=== PATIENT | male | born 1950 | race Caucasian/White ===

== ENCOUNTER → 2016-05-27 | Outpatient (CLI) | payer MEDICARE ==
[~2016-05-27] MED LIST: ACETAMINOPHEN500 M1 PO; ALLOPURINOL100 MG PO; AMARYL2 MG PO; ANAPROX DS550 MG PO; AUGMENTIN 500500 M1 PO; BACTRIM DS 8001 TA1 PO; BUMETANIDE1 MG PO; BUMETANIDE2 MG PO; CALTRATE 600+D1 EACH PO; CALTRATE 600+D1 TAB PO; CALTRATE PLUS1 TAB PO; COL-RITE100 M1 PO; COLACE100 MG PO; COREG25 MG PO; COUMADIN10 M1 PO; COUMADIN3 M1 PO; Cleocin150 MG PO; Coumadin5 MG PO; DIGITEK0.125 MG PO; DIGITEK0.25 MG PO; DIGOXIN0.25 MG PO; EC NAPROSYN500 MG PO; FEROSUL325 M1 PO; FINASTERIDE5 MG PO; FISH OIL 1,2001 EACH PO; GEMFIBROZIL600 MG PO; GENTAMICIN SULF15 GM TP; KEFLEX500 MG PO; LASIX40 MG PO; LISINOPRIL20 MG PO; NIZORAL2% T; SUPER EPA 1201200 MG PO; VANCOCIN1000 MG/25 IV; VITAMIN D32000 UNIT PO; WARFARIN SODIUM4 MG PO
--- NOTE | ~2016-05-27 | PR ---
[place], [place] PROGRESS NOTE NAME: FELIBERTO MCGREGOR JR [facility] #: [id number] UNIT #: [id number] ROOM: DOCTOR: BANDAR CamISA BIRTHDATE: [birth year] DOS: 05/27/2016 CHIEF COMPLAINT: Followup of left leg ulceration. HISTORY OF PRESENT ILLNESS: The location is the left lower leg medial aspect above the malleolus. The quality is venous. Severity is moderate. Duration is 21 weeks at least. 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 He is tolerating his Unna boot. It is getting changed twice a week by home health and once a week here in the clinic. He is on Carleen at home and we have asked to use OptiLock as a secondary dressing as he does have some problems with maceration. Upon the dressing being removed today, underneath the Unna boot, there was no secondary dressing present at all and there is some maceration present around the wound, which has been noted on prior occasions. He has no specific complaints. He is tolerating compression very well. PHYSICAL EXAMINATION: His vital signs are stable. Blood pressure is 120/74, pulse of 68, respirations 18, temperature is 98.3. The wound is measuring exactly the same except slightly less deep at 4.5 x 3.2 x 0.2. The surrounding skin appears stable. There is some maceration noted as before. There is minimal fibrin slough present in the base of the wound, but overall it does look fairly healthy and clean and the periwound appears much less inflamed. A debridement was done. The tissue removed was fibrin slough and subcutaneous tissue. There was a minimal amount of bleeding that was controlled with pressure. The instrument utilized was a curette. Post-debridement measurements are unchanged. ASSESSMENT AND PLAN: Chronic venous leg ulceration slowly healing. I am concerned about the maceration. We will use OptiLock today and skin prep around it. Also, I do not know if they are using the OptiLock well they weren't actually home health has not been, so he may have to contact home health and ask them to make sure they are using a secondary dressing to help prevent maceration. In addition, I think that this patient has had advanced wound care for over 20 weeks including compression therapy and advanced wound care products with still a stagnant chronic open wound. I think that there are no signs of overt infection and I think he would be a good candidate for possible EpiFix to help stimulate closure, so we will see if his insurance will approve this, so we will start making arrangements for this. [place], [place] PROGRESS NOTE NAME: MECHE BATISTAFELIBERTO Riya [facility] #[facility] [id number] UNIT #: [id number] ROOM: DOCTOR: ISA PORTILLO M.D. BIRTHDATE: [birth year] ISA PORTILLO MD CM:PNJONH [id number] ISA PORTILLO M.D. 05/28/16 1139 interface
[2016-05-27 14:46] LABS: HEMATOCRIT 38.5 % (42.0-52.0); HEMOGLOBIN 12.4 g/dl (14.0-18.0); MEAN CELL VOLUME 82.6 fl (80.0-94.0); MEAN CORPUSCULAR HGB 26.6 pg (27.0-31.0); MEAN CORPUSCULAR HGB CONC 32.2 g/dl (33.0-37.0); MEAN PLATELET VOLUME 10.5 fl (9.6-12.3); RED BLOOD COUNT 4.66 10*6/uL (4.50-5.90); RED CELL DISTRI WIDTH 13.9 % (0-14.5); WHITE BLOOD COUNT 8.9 10*3/uL (4.8-10.8)
[2016-05-27 15:03] LABS: ALBUMIN 3.8 gm/dl (3.1-4.5); BILIRUBIN, TOTAL 0.6 mg/dl (0.2-1.0); POTASSIUM 4.1 mmol/L (3.5-5.1); TOTAL PROTEIN 7.7 gm/dL (6.4-8.2)
[2016-05-27 15:14] LABS: DIGOXIN 0.92 ng/ml (0.8-2.0)
[2016-05-27 18:55] LABS: INTERNATIONAL NORM RATIO 3.5 (2.0-3.5); PROTHROMBIN TIME 38.8 SECONDS (9.0-12.4)
== END | disposition home or self-care (01) ==
LOC: WOUNDCARE 08:21 → LAB 08:21
PROVIDERS: Internal Medicine
DX: Z12.5 Encounter for screening for malignant neoplasm of prostate (principal); E78.00 Pure hypercholesterolemia, unspecified; Z79.01 Long term (current) use of anticoagulants; Z79.899 Other long term (current) drug therapy; I87.312 Chronic venous hypertension (idiopathic) with ulcer of left lower extremity; L97.922 Non-pressure chronic ulcer of unspecified part of left lower leg with fat layer exposed

== ENCOUNTER → 2016-06-03 | Outpatient (CLI) | payer MEDICARE ==
--- NOTE | ~2016-06-03 | PR ---
[place], [place] PROGRESS NOTE NAME: FELIBERTO MCGREGOR JR [facility] #: [id number] UNIT #: [id number] ROOM: DOCTOR: BANDAR CamISA BIRTHDATE: [birth year] DOS: 06/03/2016 CHIEF COMPLAINT: Followup of left leg ulcerations. HISTORY OF PRESENT ILLNESS: The location is the left lower leg medial aspect above the malleolus. The quality is venous. The severity is moderate to severe. The duration is at least 22 weeks being in the Wound Clinic; however, has been going on for more than that. His comorbid conditions include congestive heart failure, chronic renal failure, history of DVT, on chronic Coumadin therapy, chronic leg edema and now likely diabetes, which is newly diagnosed upon blood work that I have requested last week. His sugar was noted to be over 357 with triglycerides ranging over 600 range. This is not a fasting glucose, however, and we did discuss with the patient and his caregiver that the patient needs definitely followup with his primary care for this. This is likely why this wound is really having a difficult time healing. He is not complaining of any complaints at the present time. He is tolerating the Unna boot; however, he continues to have a lot of swelling at the foot and at the distal ankle, this is quite swollen. He does have a tight band on the upper part of the Unna boot, which was noted upon removal. OBJECTIVE: VITAL SIGNS: Stable. Blood pressure is 132/80, pulse of 68, respirations 18, temperature is 98.4. WOUND EXAMINATION: The wound is measuring slightly longer at 5.5. The width is 3.1 and the depth is 0.2; however, the depth appears to be slightly deeper than that in some areas. A debridement was done today. The tissue removed was fibrin, slough and subcutaneous tissue. A curette was utilized. There is minimal bleeding. Post-debridement measurements are unchanged except I would say that the depth is 0.3 in some places. It does seem that some of the possible ligaments are starting to be more apparent than on prior occasions. He does not have any acute tenderness. He has a lot of indurated edema around the wound and some continued maceration. ASSESSMENT AND PLAN: Chronic nonhealing wound of the left lower extremity, likely secondary to undiagnosed diabetes. He is going to be following up with his primary care doctor. I hope that they will put him on a regimen right away as I think this is going to be really important how this wound will heal if it does. In addition, I would like to hold off on compression. The Unna boot has seemed to not really made a lot of improvement lately. In fact, some of the edema is very indurated and impacted right around the wound area and especially with the foot. So, I would like to hold off and have him just use his regular BENNY hose at home for a while and see if this makes any improvement. We will change the dressings from a collagen to Hydrofera, we will use an Endoform dressing on the base of the wound. The base of the wound does look thoroughly clean; however, there is no sign of infection. He is going to have home health change it 3 times a week. Followup is in 1 week. I did ask whether he had any polyuria, polydipsia, or any changes in his vision and he does not, so his sugar was markedly uncontrolled on his blood work. I hope that once we get him stabilized with this diabetes, hopefully we will see some changes in the wound appearance. I will also ask for an x-ray of this limb as this has not been [place], [place] PROGRESS NOTE NAME: FELIBERTO MCGREGOR JR [facility] #: [id number] UNIT #: [id number] ROOM: DOCTOR: ISA PORTILLO M.D. BIRTHDATE: [birth year] ordered and I am concerned with some of the depth of the wound in certain areas. ISA PORTILLO MD CM:TRACEY [id number] ISA PORTILLO M.D. 06/04/16 1027 interface
== END ==
LOC: WOUNDCARE 08:54
DX: E11.622 Type 2 diabetes mellitus with other skin ulcer (principal); L97.822 Non-pressure chronic ulcer of other part of left lower leg with fat layer exposed; I87.312 Chronic venous hypertension (idiopathic) with ulcer of left lower extremity; I50.9 Heart failure, unspecified; E11.22 Type 2 diabetes mellitus with diabetic chronic kidney disease; N18.9 Chronic kidney disease, unspecified; Z86.718 Personal history of other venous thrombosis and embolism; Z79.01 Long term (current) use of anticoagulants

== ENCOUNTER → 2016-06-09 | Outpatient (CLI) | payer MEDICARE ==
[2016-06-09 09:16] LABS: HEMATOCRIT 40.9 % (42.0-52.0); HEMOGLOBIN 13.2 g/dl (14.0-18.0); MEAN CELL VOLUME 82.6 fl (80.0-94.0); MEAN CORPUSCULAR HGB 26.7 pg (27.0-31.0); MEAN CORPUSCULAR HGB CONC 32.3 g/dl (33.0-37.0); MEAN PLATELET VOLUME 9.5 fl (9.6-12.3); RED BLOOD COUNT 4.95 10*6/uL (4.50-5.90); RED CELL DISTRI WIDTH 13.7 % (0-14.5)
[2016-06-09 09:44] LABS: ALBUMIN 3.7 gm/dl (3.1-4.5); BILIRUBIN, TOTAL 0.7 mg/dl (0.2-1.0); POTASSIUM 4.2 mmol/L (3.5-5.1); TOTAL PROTEIN 7.9 gm/dL (6.4-8.2)
[2016-06-09 10:01] LABS: HEMOGLOBIN A1c 7.7 % (4.8-5.6)
== END | disposition home or self-care (01) ==
LOC: LAB 08:47
PROVIDERS: Family Medicine
DX: E11.9 Type 2 diabetes mellitus without complications (principal); E78.00 Pure hypercholesterolemia, unspecified

== ENCOUNTER → 2016-06-10 | Outpatient (CLI) | payer MEDICARE ==
--- NOTE | ~2016-06-10 | PR ---
[place], [place] PROGRESS NOTE NAME: FELIBERTO MCGREGOR JR [facility] #: [id number] UNIT #: [id number] ROOM: DOCTOR: BANDAR CamISA BIRTHDATE: [birth year] DOS: 06/10/2016 CHIEF COMPLAINT: Followup of left leg ulcerations. HISTORY OF PRESENT ILLNESS: The location of the wound is a left lower leg medial aspect above the malleolus. The quality is venous. The severity is moderate to severe. The duration has been at least 23 weeks and being followed in the wound clinic without any resolution of the wound. Also he has had a new diagnosis of diabetes, which has just been recently diagnosed. He is not on any medications as of yet. 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 He did have a repeat blood work today or just this week, his hemoglobin A1c was 7.7 with a triglyceride range in the 500. The patient has not been put on any medications for this as of yet. He does have an intervention for venous ablation to be scheduled, I believe next week. Last week, we did try to discontinue the Unna boot to see how he did without it. It was noted his foot was markedly swollen and it did not appear that the Unna boot would have been helping much lately. So, this was discontinued. However, he was to wear a Tubigrip; however, the Tubigrip that was applied was only applied up to the ulcer point and not above that, so when he comes in today his left lower leg is fairly edematous today. He has no complaints there. He was to have home health come and change his dressing this Wednesday; however, it was not changed, so the current dressing has been on since Wednesday. OBJECTIVE: Vital Signs: Stable. Blood pressure is 142/78, pulse is 70, respirations 18, temperature is 98.2. The wound is measuring 5.4 x 3.4 x 0.4 in depth, the depth seems slightly deeper, I believe this is secondary to his edema not being very well controlled. In fact, it does look like the two ulcers of the very top of the wounds have healed and are closed at this time and the distal wound is extremely small at this point as well. The appearance of the base of the wound is fairly clean, appears healthier than it did last week; however, there is some minimal fibrin slough present on the proximal portion at the very edge of the wound. So selective debridement was done today just to remove that and dried fibrin slough that was present. Otherwise, an aggressive debridement was not done this week. There is no discomfort, purulence or evidence of cellulitis at this time. ASSESSMENT AND PLAN: Chronic venous ulcer complicated by newly diagnosed diabetes and uncontrolled edema. He has responded to Unna boot for a short period, however, it has not really made much difference lately, so instead of doing a Unna boot, we will go back to a 3-layer compression. I would continue with Endoform for now and Hydrofera Blue dressing. The patient is to follow back up with us in one week. Home health will change the 3-layer wrap on Wednesday. Followup is next week. He is to have venous ablation done. Hopefully, this will make improvements in wound healing. Also I am going to get a nutrition consult for him as well. [place], [place] PROGRESS NOTE NAME: [facility]IBERTO [facility]REGOR JR [facility] #: [id number] UNIT #: [id number] ROOM: DOCTOR: ISA PORTILLO M.D. BIRTHDATE: [birth year] ISA PORTILLO MD CM:TRACEY [id number] ISA PORTILLO M.D. 06/16/16 1027 interface
== END | disposition home or self-care (01) ==
LOC: WOUNDCARE 00:45
DX: I87.312 Chronic venous hypertension (idiopathic) with ulcer of left lower extremity (principal); E11.622 Type 2 diabetes mellitus with other skin ulcer; L97.822 Non-pressure chronic ulcer of other part of left lower leg with fat layer exposed; E11.22 Type 2 diabetes mellitus with diabetic chronic kidney disease; N18.9 Chronic kidney disease, unspecified; I50.9 Heart failure, unspecified; Z86.718 Personal history of other venous thrombosis and embolism

== ENCOUNTER → 2016-06-17 | Outpatient (CLI) | payer MEDICARE ==
--- NOTE | ~2016-06-17 | PR ---
[place], [place] PROGRESS NOTE NAME: FELIBERTO MCGREGOR JR [facility] #: [id number] UNIT #: [id number] ROOM: DOCTOR: BANDAR CamISA BIRTHDATE: [birth year] DOS: 06/17/2016 CHIEF COMPLAINT: Followup of left leg ulceration. The location of the wound is the left lower leg medial aspect above the malleolus. The quality is a venous, severity is moderate to severe, duration is at least 24 weeks, possibly more. The patient has a recent diagnosis of diabetes that we had discovered on lab work. He is not on any medications as of yet. His comorbid conditions include congestive heart failure, chronic renal failure, history of DVT, chronic leg edema. He also is being considered for possible venous ablation, which will be scheduled once the insurance approves it. He offers no specific complaints. We had tried stopping compression for a while as we have had stalling of his wound to see if that made any type of difference. It actually did not; in fact, his leg was markedly swollen last time and the 3-layer was started back up. However, we also tried Endoform and Hydrofera for the first time. However, upon removal of the 3-layer wrap, the dressing was not even adherent to the wound or even on the wound base, it was just floating around and the Endoform actually had not incorporated into the wound either. He offers no other specific complaints. OBJECTIVE: VITAL SIGNS: Stable. Blood pressure is 138/74, pulse of 70, respirations 18, temperature is 97.9. The wound is measuring 5.4 x 4 x 0.4 in depth and there was some minimal fibrin slough present in the base of the wound. The periwound is slightly erythematous, but it seems fairly stable to me. A selective debridement was done just to remove fibrin slough, nonviable tissue only. This was accomplished with a curette. There was minimal amount of bleeding that was controlled with pressure. A tissue sample was obtained to send for culture. ASSESSMENT AND PLAN: Chronic venous stasis ulcerations, now complicated by diabetes. I think this wound has not healed secondary to his diabetes, which is now just being discovered. He has had evidence of critical colonization local wound infection in the past, although the wound appears slightly bigger in measurements, the appearance overall appears stable. Culture was taken today. We will see and reevaluate once we get the cultures back. I would like to try the patient back on the Unna boot if possible and have him use an Adaptic and then Maxorb over this to see if we can help keep the fibers from adhering to the wound base and continue with the Unna boot therapy. I would like to see also if the patient is a candidate for EpiFix although we may have to wait until the cultures are back. If the cultures are negative and there are no signs of infection, I would like to see if we can get approval for this as he has met criteria for compression therapy. He does not have any vascular disease. He also has had a standard wound care for multiple months without improvement in the wound and his diabetes is being addressed at the present time as well. So we will reevaluate this once we get the cultures back. [place], [place] PROGRESS NOTE NAME: [facility]IBERTO [facility] [id number] UNIT #: [id number] ROOM: DOCTOR: ISA PORTILLO M.D. BIRTHDATE: [birth year] ISA PORTILLO MD CM:TRACEY [phone] [id number] ISA PORTILLO M.D. 06/18/16101 interface
== END ==
LOC: WOUNDCARE 03:51
DX: E11.622 Type 2 diabetes mellitus with other skin ulcer (principal); L97.822 Non-pressure chronic ulcer of other part of left lower leg with fat layer exposed; I87.312 Chronic venous hypertension (idiopathic) with ulcer of left lower extremity; E11.22 Type 2 diabetes mellitus with diabetic chronic kidney disease; N18.9 Chronic kidney disease, unspecified; I50.9 Heart failure, unspecified; Z87.898 Personal history of other specified conditions

== ENCOUNTER → 2016-08-05 | Outpatient (CLI) | payer MEDICARE ==
[~2016-08-05] MED LIST changes: -BUMETANIDE1 MG PO; -COLACE100 MG PO; -WARFARIN SODIUM4 MG PO
--- NOTE | ~2016-08-05 | PR ---
[place], [place] PROGRESS NOTE NAME: FELIBERTO MCGREGOR JR [facility] #: [id number] UNIT #: [id number] ROOM: DOCTOR: BANDAR CamISA BIRTHDATE: [birth year] DOS: 08/05/2016 CHIEF COMPLAINT: Followup of right great toe ulcer and left leg ulcer. HISTORY OF PRESENT ILLNESS: The location of the wound is the left lower extremity above the medial malleolus. It is a venous ulcer complicated by diabetes, chronic edema and chronic renal failure. This has been open and present for at least 31 weeks. He has also had a right great toe ulcer that is fairly new and recently diagnosed with osteomyelitis. He is on IV antibiotics at [facility] and has been getting daily wound therapy and daily wound care there as well. He has had recent venous intervention for his left leg. We did repeat ABIs today and the left was 1.11 and the right up was 1.07. OBJECTIVE: VITAL SIGNS: Stable. Blood pressure is 90/48, pulse of 80, respirations 18 and temperature 98.2. MUSCULOSKELETAL: The wound of the right great toe is measuring 1 x 1.2 x 0.1. It looks smaller than it has. The erythema and edema of the toe are also improved. There is minimal fibrin and slough present at the base of the wound. There is a small amount of callus around it. The left leg ulceration is measuring 5.5 x 3 x 0.3 in depth. Overall, looks much [employer]. In general, there is some slight maceration around the kevyn-wound and minimal fibrin and slough present in the base of the wound. Debridement was done of both of these wounds. The debridement on the right great toe was a subcutaneous debridement. The tissue removed was fibrin, slough and subcutaneous tissue. This was accomplished with a #15 blade and forceps and scissors. There was moderate bleeding that was controlled with pressure. Post-debridement measurements are unchanged. The left leg ulcer was selectively debrided only with a curette. Fibrin and slough were removed only. The patient tolerated the debridement well. There was minimal bleeding. Post-debridement measurements are unchanged. ASSESSMENT AND PLAN: Chronic venous stasis ulcer of the left lower leg. It does seem that is gradually improving with the current regimen. However since there is some maceration noted instead of using 4x4s, we will use OptiLock and have them continue to change it daily as well as the right lower extremity. We will continue with the current regimen, which is Santyl and Aquacel Ag. Follow up in 1 week. He is getting Coban for compression wrap every day. This is being changed every day. He is to follow up in the Wound Clinic next week. We will consider repeating his ESR to further evaluate the osteo. His last ESR was 2.43 and that was back in June. [place], [place] PROGRESS NOTE NAME: [facility]ELIBERTO [facility]CGREGOR JR [facility] [id number] UNIT #: [id number] ROOM: DOCTOR: ISA PORTILLO M.D. BIRTHDATE: [birth year] ISA PORTILLO MD CM:TRACEY [id number] ISA PORTILLO M.D. 08/06/16 0829 interface
== END ==
LOC: WOUNDCARE 03:10
DX: E11.621 Type 2 diabetes mellitus with foot ulcer (principal); E11.622 Type 2 diabetes mellitus with other skin ulcer; I87.2 Venous insufficiency (chronic) (peripheral); L97.922 Non-pressure chronic ulcer of unspecified part of left lower leg with fat layer exposed; L97.511 Non-pressure chronic ulcer of other part of right foot limited to breakdown of skin; E11.69 Type 2 diabetes mellitus with other specified complication; M86.8X7 Other osteomyelitis, ankle and foot; E11.22 Type 2 diabetes mellitus with diabetic chronic kidney disease; N18.9 Chronic kidney disease, unspecified

== ENCOUNTER 2016-08-12 09:36 | Inpatient (IN) | payer MEDICARE ==
[~2016-08-12] VITALS: Ht 185.4 cm; Wt 97.3 kg
[2016-08-12] VITALS (11 sets, daily range): BP systolic 76–123; BP diastolic 44–75
--- NOTE | ~2016-08-12 | PR ---
[place], [place] PROGRESS NOTE NAME: FELIBERTO MCGREGOR JR [facility] #: [id number] UNIT #: [id number] ROOM: 511 DOCTOR: COLE ASCENCIO MD BIRTHDATE: [birth year] DOS: 08/15/2016 SUBJECTIVE: The patient is feeling better and stronger. OBJECTIVE: GENERAL APPEARANCE: The patient is alert and oriented x 3, in no visible distress. VITAL SIGNS: Blood pressure 109/65, heart rate of 75 beats per minute, breathing 20 times per minute, temperature 98.9 degrees Fahrenheit. HEENT AND NECK: Exam within normal limits. CARDIOVASCULAR SYSTEM: Heart rate is regular in rate and rhythm. S1 and S2 normally audible. LUNGS: Clear to auscultation. ABDOMEN: Soft, nontender. No obvious organomegaly. Bowel sounds are present. EXTREMITIES: Without significant cyanosis or edema except for the patient with osteomyelitis and wound of the right big toe for which ID consult has been obtained and Dr. Malave from wound care is also following. DIAGNOSES: 1. Chronic kidney disease stage III following. 2. Chronic atrial fibrillation. INR therapeutic and being monitored. The patient on Coumadin, heart rate controlled. 3. 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 Blood sugars being monitored and treated. 4. Coronary artery disease of [place] vessels without chest pains. 5. Urinary tract infection with urine cultures growing Enterococcus faecalis to be treated with linezolid. COLE ASCENCIO MD CM:PNTRANS [id number] COLE ASCENCIO MD 08/15/162128 interface
--- NOTE | ~2016-08-12 | PR ---
[place], [place] PROGRESS NOTE NAME: FELIBERTO MCGREGOR JR [facility] #: [id number] UNIT #: [id number] ROOM: 511 DOCTOR: COLE ASCENCIO MD BIRTHDATE: [birth year] DOS: 08/18/2016 SUBJECTIVE: The patient ambulating in the hallways, but he has limited mental abilities. OBJECTIVE: VITAL SIGNS: Blood pressure 120/68, heart rate 55 beats per minute, breathing 20 times per minute, temperature 98.5 degrees Fahrenheit. GENERAL APPEARANCE: The patient is alert and oriented x 3, in no visible distress. HEENT AND NECK: Extraocular movements are intact. Sclerae are anicteric. Oral mucosa is moist and clean. No obvious facial weakness. Neck is supple without any lymphadenopathy. No thyromegaly. No JVD. No carotid arterial bruits. LUNGS: Clear to auscultation. No wheezing. No rhonchi. CARDIOVASCULAR SYSTEM: Heart rate is regular in rate and rhythm. S1 and S2 normally audible. No significant murmur or any other abnormal cardiac sounds. ABDOMEN: Soft, nontender. No obvious organomegaly. Bowel sounds are present. No obvious herniation. EXTREMITIES: The patient has osteomyelitis involving the right toe and generalized weakness. CENTRAL NERVOUS SYSTEM: Alert and oriented x 3. Cranial nerves II-XII are intact. Speech is normal. The patient is able to move all extremities. Normal muscle strength. Deep tendon reflexes are equal on both sides. Plantars were downgoing. IMPRESSION: The patient with chronic osteomyelitis involving right toe for which I am putting him back on IV Rocephin for now and transfer him to a senior care facility at [facility]. The patient needs chronic long-term care at the nursing facility also, because for now he needs wound care nursing and he has mental disability which also limits his functioning and he has still followup with wound care center on regular basis. Chronic atrial fibrillation with controlled heart rates. Type 2 diabetes mellitus. Blood sugars have been monitored and treated. Diabetic nephropathy and polyneuropathy. Benign essential hypertension. Blood pressure is being monitored and treated. Chronic venous stasis dermatitis in both legs being treated with Unna wraps. Recent fall, hypotension and lethargy, resolved with hydration with normal saline. Hypotension for which the patient's blood pressure medications were reduced and his blood pressures have improved. [place], [place] PROGRESS NOTE NAME: FELIBERTO MCGREGOR JR Riya UNIT #: [id number] ROOM: 511 DOCTOR: COLE ASCENCIO MD BIRTHDATE: [birth year] COLE ASCENCIO MD CM:PNTRANS [id number] COLE ASCENCIO MD 08/19/16 0329 interface
--- NOTE | ~2016-08-12 | CON ---
[place], [place] REPORT OF CONSULTATION NAME: FELIBERTO MCGREGOR JR [facility] #: [id number] UNIT #: [id number] ROOM: 511 DOCTOR: BANDAR CamISA BIRTHDATE: [birth year] DOS: 08/13/2016 WOUND CARE CONSULTATION HISTORY OF PRESENT ILLNESS: The patient is a 65-year-old male known to the Wound Clinic for several months now. He has a chronic left lower leg ulceration that is venous ulcer complicated by diabetes and chronic renal failure, this wound has been open for at least 32 weeks. He also had a relatively recent right great toe wound that was associated with acute osteomyelitis. The patient was admitted to [facility] for wound care as well as daily antibiotic therapy; it appears that he was on Rocephin. He is probably almost completed 5 weeks of IV antibiotics for this particular wound. He was seen yesterday in the Wound Clinic for his routine wound care visit and he was notably lethargic, weak and somewhat hypotensive when he came, markedly pale. The patient was having difficulty answering questions and staying awake and it was felt that there was definitely a change in his mental status. Due to this fact, we transferred the patient to the Emergency Room Department for further evaluation, where it was noted that he further became hypotensive while in the ER and had a marked rise in his BUN and creatinine. The patient was admitted to the Emergency Room Department for these above issues. The patient seen this morning and states he is feeling much better. PAST MEDICAL HISTORY: Complicated for multiple medical problems and includes the following: The patient has a history of coronary artery disease, hypertension, venous stasis ulcer, history of congestive heart failure, history of chronic DVT, history of atrial fibrillation, history of renal insufficiency, history of cellulitis, recent osteomyelitis, MRSA in 2011 and 2012, history of BPH. He is also a recently newly diagnosed diabetic and he does have a history of neuropathy as well and has had problems with recurrent venous stasis ulcerations. PAST SURGICAL HISTORY: He is status post venous ablation of the left lower extremity. ALLERGIES: No known drug allergies. MEDICATIONS: As follows: He is on Lanoxin 125 mcg alternating with 250 mcg, lisinopril 20 mg daily, Proscar 5 mg daily, Colace 100 mg daily, Bumex 1 mg p.o. daily, Zyloprim 100 mg daily, Amaryl 2 mg daily, warfarin 8 mg daily, Coreg 25 p.o. b.i.d., Lopid 600 mg p.o. b.i.d., Tylenol 500 p.o. b.i.d. SOCIAL HISTORY: The patient is currently living in a snf at this time. He does not smoke or drink. FAMILY HISTORY: Noncontributory. REVIEW OF SYSTEMS: He says he is feeling fine. He has no nausea or vomiting. He said he has been eating well at the snf. He said he was able to get up and ambulate to the bathroom today, he has no urinary complaints. Denies chest pain, shortness of breath, nausea, vomiting, diarrhea, weakness, pain with [place], [place] REPORT OF CONSULTATION NAME: FELIBERTO MCGREGOR JR UNIT #: [id number] ROOM: [facility] DOCTOR: ISA PORTILLO M.D. BIRTHDATE: [birth year] this wounds or fevers or chills. PHYSICAL EXAMINATION: VITAL SIGNS: He is afebrile, his pulse is 74, respirations 18, and blood pressure is 136/72. GENERAL: He looks much more alert today than yesterday, somewhat pale on examination, he is in no acute distress. NECK: No JVD. LUNGS: Fairly clear. CARDIOVASCULAR: S1, S2 irregularly irregular. ABDOMEN: Soft and nontender. EXTREMITIES: He has positive pedal pulses. His toes are warm. He has chronic venous stasis changes. No calf pain. His dressings were removed. The left lower leg ulceration is definitely improved from the last time he was admitted and has been steadily improving. It is measuring approximately 5 x 2 cm; however, within this measurement there is quite a bit of epithelialization so there is very little actual open area still present. There is no surrounding cellulitis, purulence or tenderness and it is not draining excessive amounts. For the right great toe the wound is also measuring 0.5 x 0.5 x 0.2. It looks fairly clean. There is minimal erythema still present, but overall looks the wound is definitely getting smaller. The edema is also greatly improved from his initial presentation of this wound. There are no sign of purulence. The great toe wound was debrided yesterday, so no debridement needs to be done today. LABORATORY DATA: Today show a white count of 4.4, it was 3.9 yesterday, his hemoglobin is 11.4, and his hematocrit is 35.6. His eosinophils are high, monocytes are high. Chem-7 shows a BUN of 68, creatinine of 2.02, his BUN is better than yesterday, it was 67 yesterday and his creatinine was 2.89. LFTs are not listed. His urinalysis showed 5-10 wbc's, 5-10 rbc's, 10-15 epithelial cells, 2+ bacteria, too numerous to count granular casts. INR is 1.9. His chest x-ray yesterday showed no consolidation or atelectasis. His head CT showed prior infarcts in both occipital regions older on the left. ASSESSMENT AND PLAN: Chronic venous leg ulceration of the left lower extremity complicated by diabetes. The wound is finally making a lot of progress. He is ready for a collagen so we will add a collagen dressing. I expect that this wound should be healed within a week or 2 completely as long as edema remains controlled. His orders were written to further dressing changes. The right great toe wound is also doing quite well. It is definitely improving. He has been completed quite 6 weeks' worth of antibiotics yet. It looks like the Rocephin is on hold, likely secondary to the rise in BUN and creatinine. I will go ahead and write for ESR and CRP. Consider changing to an oral antibiotic, it looked like he had Proteus growing in his culture a month ago that was sensitive to multiple oral antibiotics. I will leave this up to the medical team. Consider if the ESR and CRP remain elevated, we may want to consider repeating an imaging study at some point, but overall the wound is definitely improving. I would go ahead and use a collagen for now and I change it every other day. Orders were written for this. His mental status seems improved this morning. He is not as weak or lethargic as he was yesterday. He has multiple medical [place], [place] REPORT OF CONSULTATION NAME: MECHE [facility]IBERTO [facility] [id number] UNIT #: [id number] ROOM: 511 DOCTOR: ISA PORTILLO M.D. BIRTHDATE: [birth year] problems that are being managed by his medical team and problems include acute on chronic renal failure, chronic atrial fibrillation, diabetes, hypotension, which appears to have resolved. I will follow along with you. ADDENDUM This is an addendum to the note from 08/13/2016. I just wanted to mention that I did speak with Dr. Julien about getting Infectious Disease input regarding antibiotic therapy. ADDENDUM I think it would be prudent to go ahead and get an Infectious Disease consultation regarding the antibiotics for the osteo of the right great toe. ISA PORTILLO MD CM:CONSTR:REPORT OF CONSULTATION 0957 08/20/16 0637 interface
--- NOTE | ~2016-08-12 | PR ---
[place], [place] PROGRESS NOTE NAME: FELIBERTO MCGREGOR JR [facility] #: [id number] UNIT #: [id number] ROOM: 511 DOCTOR: COLE ASCENCIO MD BIRTHDATE: [birth year] DOS: 08/19/2016 SUBJECTIVE: The patient going to [facility] for continued rehabilitation and antibiotic treatment. He is feeling much better. OBJECTIVE: VITAL SIGNS: Blood pressure 126/76, heart rate 58 beats per minute, breathing 18 times per minute and temperature of 98 degrees Fahrenheit. GENERAL APPEARANCE: The patient is alert and oriented x 3, in no visible distress. HEENT AND NECK: Exam within normal limits. CARDIOVASCULAR SYSTEM: Heart rate is regular in rate and rhythm. S1 and S2 normally audible. LUNGS: Clear to auscultation. ABDOMEN: Soft, nontender. No obvious organomegaly. Bowel sounds are present. EXTREMITIES: Bilateral leg edema and right big toe osteomyelitis and ulcer. IMPRESSION: 1. Chronic osteomyelitis involving the right big toe which is healing and being followed by the Wound Center, please continue weekly appointments. 2. Persistent hypotension, for which, patient's dose of lisinopril and Coreg were reduced and blood pressure has improved. 3. Benign essential hypertension with controlled blood pressures now. 4. Chronic atrial fibrillation with controlled heart rates. The patient is being on Coumadin with therapeutic INR. 5. Coronary artery disease of [place] vessels without chest pains. 6. Urinary tract infection with Enterococcus faecalis, was evaluated by ID and taken as colonization and not an active infection which does not require treatment. COLE ASCENCIO MD CM:PNTRANS [id number] COLE ASCENCIO MD 08/20/16 0653 interface
--- NOTE | ~2016-08-12 | CON ---
[place], [place] REPORT OF CONSULTATION NAME: FELIBERTO MCGREGOR JR [facility] #: [id number] UNIT #: [id number] ROOM: 511 DOCTOR: STUART MARTIN MD BIRTHDATE: [birth year] DOS: 08/17/2016 HISTORY OF PRESENT ILLNESS: This is a 65-year-old gentleman admitted under Dr. Julien's service and seen at her request. The patient has a left tibial or fibular, I believe, osteomyelitis and has been receiving antibiotics as outpatient. The patient was admitted because of I believe the labile hypertension and also has been found to have a large scrotal swelling. Consult was requested for scrotal swelling. The patient, however, denies any pain, discomfort, and the swelling appears to be there for the past several months or perhaps years. The patient also is mentally challenged and also not very cooperative as far as the history and physical is concerned. According to the patient, his swelling is totally asymptomatic and does not wish any intervention for this or any treatment for this problem. PHYSICAL EXAMINATION: GENERAL: He is alert, oriented, but very agitated. GENITOURINARY: He has a very large left scrotal mass. Skin over the swelling is normal with no signs of inflammation or edema. The mass is in inguinal scrotal, suggestive of most likely a sliding hernia. It is not completely reducible, but appears to have peristalsis suggestive of a sliding hernia. The patient was not very cooperative, and therefore, I was not able to examine him properly and at the same time decline digital examination. IMPRESSION: Sliding left inguinal hernia. PLAN: At this point, if the patient desires any surgical intervention or management, general surgical service should be consulted for this patient. At this point, I will therefore sign the patient off, and if the patient desires any urological service, then we will follow him in the office. STUART MARTIN MD CM:CONSTR:REPORT OF CONSULTATION 1001 08/17/16 1022 interface
--- NOTE | ~2016-08-12 | PR ---
[place], [place] PROGRESS NOTE NAME[id number] UNIT #: [id number] ROOM: 511 DOCTOR: CALVIN HINTON MD BIRTHDATE: [birth year] DOS: 08/14/2016 SUBJECTIVE: The patient says that he feels fine and wants to go back to the half-way. OBJECTIVE: VITAL SIGNS: His pressure is 98/56, pulse of 60, respirations 16, temperature 98.1. LUNGS: Clear. HEART: Regular. ABDOMEN: Soft. EXTREMITIES: Without any edema on the right. Left lower leg large stasis ulcer on the medial malleolus of the left ankle. The area is nice and pink. There is no evidence of cellulitis. Continue current treatment plan. ASSESSMENT AND PLAN: 1. Osteomyelitis of the right big toe, on IV antibiotics. 2. Possible urinary tract infection with metabolic encephalopathy. Urine culture shows moderate gram-positive cocci 50,000 colonies. No identification available. 3. Acute kidney injury, possibly from the underlying infection with acute tubular necrosis. Kidney function seems to be slightly better. Since we do not have the identification and sensitivities, we will keep the patient here until that is available. CALVIN HINTON MD CM:PNTRANS 3 CALVIN HINTON MD 08/14/1614 interface
--- NOTE | ~2016-08-12 | PR ---
[place], [place] PROGRESS NOTE NAME: FELIBERTO MCGREGOR JR [facility] #: [id number] UNIT #: [id number] ROOM: 511 DOCTOR: BANDAR Cam,ISA BIRTHDATE: [birth year] DOS: 08/17/2016 The patient's left leg wound currently is wrapped in Coban. As Coban is not available on the floor, I was asked to come up with a different dressing for this wound. Also he has not been complaining of any pain or discomfort and has been getting up and ambulating according to the staff. His temperature is 98.3, pulse of 91, respirations 18, blood pressure is 100/60. The wound on the left lower extremity is almost healed essentially. There has been a large amount of epithelialization. There is some dried skin around the periwound. Edema is well controlled. The foot is warm. I would like to go ahead and use an Unna boot today. This was applied and the secondary dressing was an Uri wrap over that, so we will keep this Unna boot in place and have him change it 3 times a week for now until for close monitoring of this wound. As in the past, this wound was quite large and took a very long time to heal. It looks really good now. For the right great toe wound, this wound is also measuring quite small and is much improved. There is really no significant amount of drainage. He is on Carleen, we will just continue with that. As far as his plan, his wounds are much improved. He is going to be followed by Dr. Kuo as an outpatient as well. If he is going to be planning on discharge today, the Unna boot should be removed in 2 days just to make sure it has not caused any problems. Other than that, he is to follow up in the Wound Clinic once medically stable. ISA PORTILLO MD CM:PNTRANS [id number] ISA PORTILLO M.D. 08/18/16 0155 interface
--- NOTE | ~2016-08-12 | PR ---
[place], [place] PROGRESS NOTE NAME: FELIBERTO MCGREGOR JR [facility] #: [id number] UNIT #: [id number] ROOM: 511 DOCTOR: COLE ASCENCIO MD BIRTHDATE: [birth year] DOS: 08/16/2016 SUBJECTIVE: The patient is looking and feeling better. OBJECTIVE: VITAL SIGNS: Blood pressure 90/58, heart rate of 88 beats per minute, breathing 20 times per minute, temperature 98 degrees Fahrenheit. GENERAL APPEARANCE: The patient is alert and oriented x 3, in no visible distress. HEENT AND NECK: Exam within normal limits. CARDIOVASCULAR SYSTEM: Heart rate is regular in rate and rhythm. S1 and S2 normally audible. LUNGS: Clear to auscultation. ABDOMEN: Soft, nontender. No obvious organomegaly. Bowel sounds are present. EXTREMITIES: The patient has bilateral leg edema and right big toe osteomyelitis and ulcer. IMPRESSION: 1. The patient with persistent hypotension for which I am decreasing the dose of lisinopril and Coreg and as his blood pressure improves, he will be discharged back to the [facility]. 2. Chronic osteomyelitis involving right toe and wound which is healing and followed by wound care doctor, Dr. Malave. 3. Chronic atrial fibrillation with controlled heart rates. The patient anticoagulated with Coumadin and INR therapeutic at 2.3. 4. 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 5. Urinary tract infection with Enterococcus faecalis, being treated with linezolid. 6. Coronary artery disease of [place] vessels without chest pains. COLE ASCENCIO MD CM:PNTRANS [phone] COLE ASCENCIO MD 08/17/16 0205 interface
--- NOTE | ~2016-08-12 | WRIGHTHP ---
[place], [place] PATIENT HISTORY AND PHYSICAL EXAM NAME: FELIBERTO MCGREGOR JR [facility] #: [id number] UNIT #: [id number] ROOM: 511 DOCTOR: COLE ASCENCIO MD BIRTHDATE: [birth year] DOS: 08/12/2016 HISTORY OF PRESENT ILLNESS: A 65-year-old gentleman with a past medical history of: 1. Osteomyelitis of right big toe. 2. Chronic venous stasis in both legs and left heel wound from venous ulcers in the past. 3. History of Proteus mirabilis of the wound. 4. Type 2 diabetes mellitus. 5. Chronic atrial fibrillation. The patient anticoagulated with Coumadin. 6. Benign essential hypertension. 7. Chronic kidney disease stage 4. 8. Diabetic polyneuropathy, peripheral. 9. Coronary artery disease of [place] vessels. The patient presented to the Emergency Department, sent over from the Wound Center where he was being seen with increased weakness, mental confusion and feeling unwell. The patient was found to have urinary tract infection and he was dehydrated, when evaluated in the Emergency Department, he was unable to ambulate and somewhat lethargic. He denied any other symptoms. The patient was admitted for altered mental status and urinary tract infection and his urine culture is still pending. The patient has no significant new complaints and he is a poor historian. REVIEW OF SYSTEMS: LUNGS: No increasing shortness of breath or wheezing. GASTROINTESTINAL: No nausea, vomiting, diarrhea, or constipation. CARDIOVASCULAR: No chest pains or palpitations. HOME MEDICATIONS: The patient is taking digoxin, lisinopril, finasteride, Colace, Bumex, allopurinol, glimepiride, Coumadin, Coreg, gemfibrozil and Tylenol. ALLERGIES: No known drug allergies. PHYSICAL EXAMINATION: GENERAL: Alert and oriented x 3, poor historian. No visible distress. HEENT AND NECK: Extraocular movements are intact. Sclerae are anicteric. Oral mucosa is moist and clean. No obvious facial weakness. Neck is supple without any lymphadenopathy. No thyromegaly. No JVD. No carotid arterial bruits. LUNGS: Clear to auscultation. No wheezing. No rhonchi. CARDIOVASCULAR SYSTEM: Heart was irregularly irregular in rate and rhythm. ABDOMEN: Soft, nontender. No obvious organomegaly. Bowel sounds are present. No obvious herniation. EXTREMITIES: The patient has right toe wound and left heel ulcer, which is healing and chronic venous stasis dermatitis in both extremities. CENTRAL NERVOUS SYSTEM: Alert and oriented x 3. Cranial nerves II-XII are intact. Speech is normal. The patient is able to move all extremities. Normal muscle strength. Deep tendon reflexes are equal on both sides. Plantars were downgoing. [place], [place] PATIENT HISTORY AND PHYSICAL EXAM [facility]: [id number] #: [id number] ROOM: [facility] DOCTOR: COLE ASCENCIO MD BIRTHDATE: [birth year] LABORATORY DATA: INR therapeutic at 2. Urine culture is growing 50,000 colonies of moderate gram-positive cocci. BUN and creatinine of 60 and 2, improved from admission, it was 67 and 2.9 yesterday. IMPRESSION: 1. Osteomyelitis of the right big toe, treated with antibiotics. The patient was on Rocephin, which I will switch to Augmentin as Dr. Malave, the wound care doctor, has recommended to change to oral antibiotics. 2. Urinary tract infection. We will await for urine cultures and treat accordingly. The patient already back to his normal self. He is more oriented now and able to walk. 3. Chronic atrial fibrillation with therapeutic INR at 2.0. I will continue Coumadin and follow his protimes. 4. 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 We will monitor blood sugars and treat as necessary. 5. Coronary artery disease of [place] vessels without any chest pains. I will continue his home medications. COLE ASCENCIO MD CM:HISPHYS:PATIENT HISTORY AND PHYSICAL EXAMINATION 35 [phone] COLE ASCENCIO MD 08/14/16 0116 interface
--- NOTE | ~2016-08-12 | DS ---
[place], [place] DISCHARGE SUMMARY NAME: FELIBERTO MCGREGOR JR [facility] #: [id number] UNIT #: [id number] ROOM: 511 DOCTOR: COLE ASCENCIO MD BIRTHDATE: [birth year] DOS: 08/17/2016 DISCHARGE DIAGNOSES: 1. Osteomyelitis involving the right toe, being treated with Keflex for 2 more weeks, followed by Dr. Malave at the Wound Center. 2. History of hypertension with recent persistent hypotension, treated with decreasing Coreg and lisinopril. 3. Chronic atrial fibrillation with controlled heart rates. The patient on Coumadin. 4. 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 5. Coronary artery disease of the [place] vessels without chest pain. 6. Benign essential hypertension. 7. Chronic venous stasis of both legs and left heel wound from venous ulcers in the past. The patient with osteomyelitis of the right big toe, which is to be treated with Keflex for 2 more weeks, and the patient asked to follow up with Wound Center and also to see Dr. Nicolette Kuo, the Infectious Disease specialist, in 2 weeks. 8. The patient with fall and hypotension and lethargy, dehydration, for which she was admitted from the Emergency Department, sent over from [facility]. The patient was hydrated, and I have cut back on the blood pressure medications, lisinopril and Coreg, to try and improve on his blood pressure. The patient has been ambulating well. 9. Scrotal enlargement, possible hydrocele versus hernia. The patient refused to get examined by anybody including Dr. Haseeb Almazan, the urologist. 10. The patient growing Enterococcus faecalis, considered to be asymptomatic bacteriuria by Dr. Nicolette Kuo because there are no other signs of infection. She has not recommended any more treatment. 11. Chronic atrial fibrillation with controlled heart rates. The patient on Coumadin. INR of 2.3 and therapeutic. 12. Diabetic nephropathy, chronic kidney disease 3A at present time, being followed closely. 13. Coronary artery disease of [place] vessels without chest pains. 14. Chronic osteomyelitis involving the right toe, being treated and followed by Infectious Disease specialist and Wound Care Center and Foot doctors. The patient to follow up as an outpatient. LABORATORY DATA: Hemoglobin 10.6. No leukocytosis. BUN and creatinine 57 and 2. Urine cultures growing Enterococcus faecium, 50,000 colonies, resistant organism. DISCHARGE MANAGEMENT: Keflex 500 mg every 8 hours for 2 weeks, then to be stopped. The patient to follow up with Dr. Malave at [facility]. The patient to follow up with Dr. Nicolette Kuo, the ID specialist, in 2 weeks at her office. Tylenol 1000 mg b.i.d. p.r.n. for pain, gemfibrozil 600 mg b.i.d. before meals, Coumadin 8 mg a day, glimepiride 2 mg daily, no concentrated sweet diet, allopurinol 100 mg daily. Check bedside sugars q.i.d. 2 days a week. Bumex 1 mg daily, Colace 100 mg daily, finasteride 5 mg a day, digoxin 250 mcg every Wednesday, Wednesday, Wednesday, , and Wednesday, and 125 mcg on Mondays and Fridays, Coreg 12.5 mg b.i.d., lisinopril 2.5 mg a day. Check basic metabolic [place], [place] DISCHARGE SUMMARY NAME: FELIBERTO MCGREGOR JR UNIT #: [id number] ROOM: 511 DOCTOR: COLE ASCENCIO MD BIRTHDATE: [birth year] profile in one week and then every month. COLE ASCENCIO MD CM:DISCHARG [id number] COLE ASCENCIO MD 08/17/16 1241 interface
--- NOTE | ~2016-08-12 | CON ---
[place], [place] REPORT OF CONSULTATION NAME: FELIBERTO MCGREGOR JR UNIT #: [id number] ROOM: 511 DOCTOR: CHRIS SALCEDO MD BIRTHDATE: [birth year] DOS: 08/15/2016 REASON FOR CONSULTATION: Urinary tract infection with multidrug resistant organism. CONSULTING DOCTOR: Dr. Kelvin Julien. HISTORY OF PRESENT ILLNESS: This is a 65-year-old man who was [facility] with increased weakness, dizziness and mental confusion. He was found to be dehydrated and was admitted. He was lethargic. His urine culture grew enterococcus faecium and ID was consulted for antibiotic recommendations. He has chronic osteomyelitis of the left toe for which he follows up with wound care, also has chronic venous stasis. PAST MEDICAL HISTORY: Positive for history of hypertension, chronic venous stasis ulcer, MRSA colonization, BPH. PAST SURGICAL HISTORY: History of heart catheterization in 2009, multiple wound debridements. SOCIAL HISTORY: Does not use tobacco, alcohol or illicit drugs. He has a cat at home. FAMILY HISTORY: Mom had meningitis. Dad had no coronary artery disease or diabetes. HOME MEDICATIONS AND CURRENT INPATIENT MEDICATIONS: Reviewed. REVIEW OF SYSTEMS: A 14-point review of systems otherwise negative unless otherwise specified in the HPI. PHYSICAL EXAMINATION: VITAL SIGNS: Showed temperature 98.9, heart rate of 75, blood pressure of 109/65, respiration rate of 20, pulse ox of 99% on room air. GENERAL APPEARANCE: Awake, alert, oriented to time, place and person. No acute distress. HEENT: Oral cavity moist and intact. NECK: Supple, no JVD, no lymphadenopathy. HEART: Regular rate and rhythm. S1, S2 normal. No murmurs, gallops or rubs. LUNGS: Clear to auscultation. Equal air entry bilaterally. ABDOMEN: Soft, nontender, nondistended. Bowel sounds heard. EXTREMITIES: Left lower extremity with dressing, right lower extremity with chronic venous stasis changes with no open wounds or ulcers or evidence of cellulitis. LABORATORY DATA: Reviewed. WBC of 5.8, hemoglobin 10.6, platelets were 174. Chemistry showing BUN of 46, creatinine of 1.75. C-reactive protein of 3.74. Prostate specific antigen from 2016 was 0.61. Lactic acid was not obtained on this admission. C-reactive protein on 08/06/2016 was 5.85. Hematology, sed rate showed 87, it is about the same as before, was 63 in [place], [place] REPORT OF CONSULTATION NAME: FELIBERTO MCGREGOR JR UNIT #: [id number] ROOM: 511 DOCTOR: CHRIS SALCEDO MD BIRTHDATE: [birth year]. Urinalysis showed no significant pyuria 10-15 epithelial cells, granular casts, proteinuria. Microbiology showing multidrug resistant 50,000 colonies of vancomycin-resistant enterococcus susceptible to Macrobid, linezolid and nitrofurantoin. ASSESSMENT AND PLAN: 1. Asymptomatic bacteriuria with vancomycin-resistant enterococci. I did not recommend any antibiotics for asymptomatic bacteriuria in this patient. We will stop the Zyvox, which is started. Also, the urine specimen was a poor collection without any significant pyuria. 2. Chronic venous stasis ulceration of left lower extremities. In the past, he had grown Proteus recently about a month ago. He is being followed up with wound care by Dr. Kacey Malave. I would therefore put him on Keflex 500 every 12 hours and have him follow up with myself and Dr. Malave every month. Plan is for Keflex 500 every 12 hours, obtain inflammatory markers once a month. His C-reactive protein and sed rate are mildly elevated, and if the wound is continuing to look better, would stop the antibiotics in 2 weeks' time. Follow up with myself in 2 weeks' time. Okay to discharge home with oral antibiotics, Keflex 500 q. 12. CHRIS SALCEDO MD CM:CONSTR:REPORT OF CONSULTATION 1610 08/15/16 [id number] interface
[~2016-08-12 09:36] MED LIST changes: -BUMETANIDE1 MG PO; -COLACE100 MG PO; -WARFARIN SODIUM4 MG PO
[2016-08-12 10:16] LABS: BASO # 0.1 10*3/uL (0.0-0.1); BASO % 1.3 % (0.0-1.0); EOS # 0.2 10*3/uL (0.0-0.4); EOS % 4.4 % (1.0-4.0); HEMATOCRIT 34.9 % (42.0-52.0); HEMOGLOBIN 11.4 g/dl (14.0-18.0); LYMPH # 0.5 10*3/uL (1.3-4.4); LYMPH % 13.4 % (27.0-41.0); MEAN CORPUSCULAR HGB 26.5 pg (27.0-31.0); MEAN CORPUSCULAR HGB CONC 32.7 g/dl (33.0-37.0); MEAN PLATELET VOLUME 9.9 fl (9.6-12.3); MONO # 0.7 10*3/uL (0.1-1.0); MONO % 18.8 % (3.0-9.0); NEUT # 2.4 10*3/uL (2.3-7.9); NEUT % 61.3 % (47.0-73.0); PLATELET COUNT AUTOMATED 223 10*3/uL (130-400); RED BLOOD COUNT 4.31 10*6/uL (4.50-5.90); RED CELL DISTRI WIDTH 13.9 % (0-14.5); WHITE BLOOD COUNT 3.9 10*3/uL (4.8-10.8)
[2016-08-12 10:35] LABS: POTASSIUM 5.3 mmol/L (3.5-5.1); TROPONIN I 0.02 ng/ml (<0.045)
[2016-08-12 11:43] LABS: BILIRUBIN NEGATIVE (NEGATIVE); BLOOD NEGATIVE (NEGATIVE); CLARITY SL CLOUDY (CLEAR); COLOR YELLOW (YELLOW); GLUCOSE NEGATIVE (NEGATIVE); KETONE NEGATIVE (NEGATIVE); LEUKO ESTERASE NEGATIVE (NEGATIVE); NITRITE NEGATIVE (NEGATIVE); PROTEIN NEGATIVE (NEGATIVE); SPECIFIC GRAVITY 1.015 (1.005-1.030); UROBILINOGEN 0.2 E.U./dl (0.2-1.0)
[2016-08-12 12:01] LABS: BACTERIA 2+; FINE GRANULAR CAST TNTC; URINE REFLEX COMMENT YES (NO)
[2016-08-12] MEDS ORDERED: ALLOPURINOL100 MG PO (14:00)
[2016-08-12] MEDS ORDERED: BUMETANIDE1 MG PO (14:01)
[2016-08-12] MEDS ORDERED: COLACE100 MG PO (14:02)
[2016-08-12] MEDS ORDERED: WARFARIN SODIUM4 MG PO (15:27)
[2016-08-12 17:33] LABS: INTERNATIONAL NORM RATIO 1.9 (2.0-3.5); PROTHROMBIN TIME 20.9 SECONDS (9.0-12.4)
[2016-08-13] VITALS: BP 130/83
[2016-08-13 06:42] LABS: BASO % 0.7 % (0.0-1.0); EOS # 0.3 10*3/uL (0.0-0.4); EOS % 6.8 % (1.0-4.0); HEMATOCRIT 35.6 % (42.0-52.0); HEMOGLOBIN 11.4 g/dl (14.0-18.0); LYMPH # 0.5 10*3/uL (1.3-4.4); LYMPH % 10.5 % (27.0-41.0); MEAN CELL VOLUME 81.5 fl (80.0-94.0); MEAN CORPUSCULAR HGB 26.1 pg (27.0-31.0); MONO # 0.7 10*3/uL (0.1-1.0); MONO % 16.1 % (3.0-9.0); NEUT # 2.9 10*3/uL (2.3-7.9); NEUT % 65.4 % (47.0-73.0); PLATELET COUNT AUTOMATED 199 10*3/uL (130-400); RED BLOOD COUNT 4.37 10*6/uL (4.50-5.90); RED CELL DISTRI WIDTH 13.8 % (0-14.5); WHITE BLOOD COUNT 4.4 10*3/uL (4.8-10.8)
[2016-08-13 06:56] LABS: POTASSIUM 4.7 mmol/L (3.5-5.1)
[2016-08-13 08:00] VITALS: BP 136/72
[2016-08-13 10:47] LABS: PROTHROMBIN TIME 22.3 SECONDS (9.0-12.4)
[2016-08-13 12:00] VITALS: BP 102/54; BP 90/55
[2016-08-13 16:00] VITALS: BP 101/53
[2016-08-13 20:00] VITALS: BP 100/52
[2016-08-14] VITALS: BP 98/56
[2016-08-14 06:33] LABS: BASO % 0.6 % (0.0-1.0); EOS # 0.4 10*3/uL (0.0-0.4); EOS % 7.1 % (1.0-4.0); HEMATOCRIT 33.4 % (42.0-52.0); HEMOGLOBIN 10.9 g/dl (14.0-18.0); LYMPH # 0.6 10*3/uL (1.3-4.4); LYMPH % 12.4 % (27.0-41.0); MEAN CELL VOLUME 81.3 fl (80.0-94.0); MEAN CORPUSCULAR HGB 26.5 pg (27.0-31.0); MEAN CORPUSCULAR HGB CONC 32.6 g/dl (33.0-37.0); MEAN PLATELET VOLUME 10.3 fl (9.6-12.3); MONO # 0.8 10*3/uL (0.1-1.0); MONO % 16.6 % (3.0-9.0); NEUT # 3.2 10*3/uL (2.3-7.9); NEUT % 62.9 % (47.0-73.0); PLATELET COUNT AUTOMATED 166 10*3/uL (130-400); RED BLOOD COUNT 4.11 10*6/uL (4.50-5.90); RED CELL DISTRI WIDTH 13.9 % (0-14.5); WHITE BLOOD COUNT 5.1 10*3/uL (4.8-10.8)
[2016-08-14 07:03] LABS: C-REACTIVE PROTEIN 3.74 MG/DL (0-0.3); POTASSIUM 4.3 mmol/L (3.5-5.1)
[2016-08-14 08:00] VITALS: BP 114/62
[2016-08-14 10:13] LABS: INTERNATIONAL NORM RATIO 2.1 (2.0-3.5); PROTHROMBIN TIME 23.4 SECONDS (9.0-12.4)
[2016-08-14 12:12] LABS: BASO % 0.7 % (0.0-1.0); EOS # 0.4 10*3/uL (0.0-0.4); EOS % 6.4 % (1.0-4.0); HEMATOCRIT 34.6 % (42.0-52.0); HEMOGLOBIN 11.1 g/dl (14.0-18.0); LYMPH # 0.8 10*3/uL (1.3-4.4); LYMPH % 14.6 % (27.0-41.0); MEAN CELL VOLUME 80.5 fl (80.0-94.0); MEAN CORPUSCULAR HGB 25.8 pg (27.0-31.0); MEAN CORPUSCULAR HGB CONC 32.1 g/dl (33.0-37.0); MEAN PLATELET VOLUME 10.1 fl (9.6-12.3); MONO # 0.9 10*3/uL (0.1-1.0); MONO % 15.7 % (3.0-9.0); NEUT # 3.5 10*3/uL (2.3-7.9); NEUT % 61.9 % (47.0-73.0); PLATELET COUNT AUTOMATED 171 10*3/uL (130-400); RED CELL DISTRI WIDTH 14.1 % (0-14.5); WHITE BLOOD COUNT 5.6 10*3/uL (4.8-10.8)
[2016-08-14 12:38] LABS: POTASSIUM 4.5 mmol/L (3.5-5.1)
[2016-08-14 14:58] VITALS: BP 99/58
[2016-08-14 16:00] VITALS: BP 118/52
[2016-08-14 20:00] VITALS: BP 114/56
[2016-08-15] VITALS: BP 112/52
[2016-08-15 06:12] LABS: BASO # 0.1 10*3/uL (0.0-0.1); BASO % 0.9 % (0.0-1.0); EOS # 0.4 10*3/uL (0.0-0.4); EOS % 6.7 % (1.0-4.0); HEMOGLOBIN 10.6 g/dl (14.0-18.0); LYMPH # 0.7 10*3/uL (1.3-4.4); LYMPH % 11.4 % (27.0-41.0); MEAN CELL VOLUME 81.1 fl (80.0-94.0); MEAN CORPUSCULAR HGB CONC 32.1 g/dl (33.0-37.0); MEAN PLATELET VOLUME 10.3 fl (9.6-12.3); MONO # 0.8 10*3/uL (0.1-1.0); NEUT # 3.9 10*3/uL (2.3-7.9); NEUT % 66.5 % (47.0-73.0); PLATELET COUNT AUTOMATED 174 10*3/uL (130-400); RED BLOOD COUNT 4.07 10*6/uL (4.50-5.90); RED CELL DISTRI WIDTH 13.9 % (0-14.5); WHITE BLOOD COUNT 5.8 10*3/uL (4.8-10.8)
[2016-08-15 06:30] LABS: POTASSIUM 4.6 mmol/L (3.5-5.1)
[2016-08-15 08:00] VITALS: BP 126/56
[2016-08-15 10:25] LABS: INTERNATIONAL NORM RATIO 2.3 (2.0-3.5); PROTHROMBIN TIME 25.8 SECONDS (9.0-12.4)
[2016-08-15 12:00] VITALS: BP 109/65
[2016-08-15 16:00] VITALS: BP 112/53
[2016-08-15 20:00] VITALS: BP 100/56
[2016-08-16] VITALS: BP 98/52
[2016-08-16 05:15] VITALS: BP 102/50
[2016-08-16 08:00] VITALS: BP 118/50
[2016-08-16 12:00] VITALS: BP 93/56
[2016-08-16 16:00] VITALS: BP 90/58
[2016-08-16 20:00] VITALS: BP 117/82
[2016-08-17] VITALS: BP 96/52
[2016-08-17 08:00] VITALS: BP 100/60
[2016-08-17] MEDS ORDERED: KEFLEX 500 MG E2 CAP PO (10:49)
[2016-08-17] MEDS ORDERED: LISINOPRIL2.5 MG PO (10:49)
[2016-08-17] MEDS ORDERED: COREG12.5 M1 PO (10:49)
[2016-08-17 16:24] VITALS: BP 100/58
[2016-08-17 20:00] VITALS: BP 118/59
[2016-08-18] VITALS: BP 111/52
[2016-08-18 08:00] VITALS: BP 114/56
[2016-08-18 12:00] VITALS: BP 122/54
[2016-08-18 16:00] VITALS: BP 120/68
[2016-08-18 20:00] VITALS: BP 115/46
[2016-08-19] VITALS: BP 113/74
[2016-08-19 08:00] VITALS: BP 126/76
[2016-08-19] MEDS ORDERED: CEFTRIAXON1 GM/50 ML IV (11:06)
[2016-08-19 12:00] VITALS: BP 125/77
== END 2016-08-19 15:46 | disposition other institution (70) | DRG 314 ==
LOC: ED 09:36 → EDHOLD 12:35 → 5E 12:35
PROVIDERS: Emergency Medicine; Internal Medicine
DX: I95.9 Hypotension, unspecified (principal); N17.0 Acute kidney failure with tubular necrosis; G93.41 Metabolic encephalopathy; M86.671 Other chronic osteomyelitis, right ankle and foot; E11.21 Type 2 diabetes mellitus with diabetic nephropathy; E11.42 Type 2 diabetes mellitus with diabetic polyneuropathy; E11.69 Type 2 diabetes mellitus with other specified complication; N18.4 Chronic kidney disease, stage 4 (severe); I48.2 Chronic atrial fibrillation; I50.9 Heart failure, unspecified; I13.0 Hypertensive heart and chronic kidney disease with heart failure and stage 1 through stage 4 chronic kidney disease, or unspecified chronic kidney disease; E86.0 Dehydration; N39.0 Urinary tract infection, site not specified; E11.22 Type 2 diabetes mellitus with diabetic chronic kidney disease; K40.90 Unilateral inguinal hernia, without obstruction or gangrene, not specified as recurrent; N40.0 Benign prostatic hyperplasia without lower urinary tract symptoms; I25.10 Atherosclerotic heart disease of native coronary artery without angina pectoris; I87.2 Venous insufficiency (chronic) (peripheral); N43.3 Hydrocele, unspecified; Z86.718 Personal history of other venous thrombosis and embolism; Z79.01 Long term (current) use of anticoagulants; Z86.14 Personal history of Methicillin resistant Staphylococcus aureus infection

== ENCOUNTER → 2016-08-12 | Outpatient (CLI) | payer MEDICARE ==
[~2016-08-12] MED LIST changes: +BUMETANIDE1 MG PO; +COLACE100 MG PO; +WARFARIN SODIUM4 MG PO
--- NOTE | ~2016-08-12 | PR ---
[place], [place] PROGRESS NOTE NAME: FELIBERTO MCGREGOR JR [facility] #: [id number] UNIT #: [id number] ROOM: DOCTOR: BANDAR CamISA BIRTHDATE: [birth year] DOS: 08/12/2016 CHIEF COMPLAINT: Followup of right great toe ulcer and left leg ulcer. HISTORY OF PRESENT ILLNESS: The location of the wound is left lower extremity above the medial malleolus. It is a venous ulcer complicated by diabetes, chronic edema and chronic renal failure. This has been open for at least 32 weeks now. He also has an ulcer of the right great toe that is recently diagnosed within the past [id number]-half secondary to neuropathy and underlying osteomyelitis. He is on IV antibiotics at [facility] and has been getting daily wound care therapy as well. He had recent venous intervention of the left lower leg with venous ablation. The patient comes in today without any specific complaints. He denies any fevers, chills, pain with the wounds. He says his appetite is good. He says he feels fine. OBJECTIVE: VITAL SIGNS: Stable. His blood pressure is slightly low at 96/50, pulse of 84, respirations 18, temperature 98.1. The wound of the right great toe is measuring much smaller at 0.5 x 0.6 x 0.1. There is minimal dried fibrin slough at the periwound. There is good granulation tissue. The swelling and redness of the toe is much improved as well. It is not acutely tender at this time. The left lower leg wound is measuring smaller at 5.5 x 2.5 x 0.2. There has been a lot of epithelialization within that measurement and minimal necrotic tissue present, but overall it looks much improved than the last time we have seen him. The edema is much more controlled in general, there is no active cellulitis or periwound inflammation. A debridement was done, a selective debridement just at the right toe, this tissue was removed was only fibrin and slough. A curette was used as well as forceps and scissors. There was no bleeding. Post-debridement measurements are unchanged. The patient tolerated the debridement well. Cetacaine spray was used for topical anesthesia. No debridement was done of the left lower extremity wound. The patient was also notably more lethargic than normal. ASSESSMENT AND PLAN: The patient is normally quite talkative and alert and pleasant, and energetic. He seems quite lethargic, falls asleep easily during the interview and was noticeably pale. He did not appear to have any new complaints. He was also noted to be weaker in general as he was unable to come in walking by himself. He was brought in by a wheelchair, which is very unusual for the patient. Due to the lethargy, change in mental status, we placed a call out to [facility] who suggested to go ahead and send the patient to the Emergency Department for an evaluation and I did speak to Dr. Tamaoy in the ER to give him a report regarding our concerns and the patient was brought to the Emergency Room for further evaluation. As far as his wounds go, they look really good. I do not think his mental status changes has anything to do with the wounds at this point, we will discontinue the Santyl as the wounds are much metal cleaner and we will go to a collagen dressing, Carleen can be used in [facility]. He is going to continue with the Coban wrap and follow up in the Wound Clinic in one week. [place], [place] PROGRESS NOTE NAME: MECHE FELIBERTO BATISTA UNIT #: [id number] ROOM: DOCTOR: ISA PORTILLO M.D. BIRTHDATE: [birth year] ISA PORTILLO MD CM:TRACEY [id number] ISA PORTILLO M.D. 08/12/16 1322 interface
== END ==
LOC: WOUNDCARE 03:08
DX: E11.621 Type 2 diabetes mellitus with foot ulcer (principal); I87.2 Venous insufficiency (chronic) (peripheral); L97.511 Non-pressure chronic ulcer of other part of right foot limited to breakdown of skin; E11.69 Type 2 diabetes mellitus with other specified complication; L97.822 Non-pressure chronic ulcer of other part of left lower leg with fat layer exposed; M86.8X7 Other osteomyelitis, ankle and foot; E11.22 Type 2 diabetes mellitus with diabetic chronic kidney disease; N18.9 Chronic kidney disease, unspecified

== ENCOUNTER → 2016-08-20 | Outpatient (CLI) | payer MEDICARE ==
[~2016-08-20] MED LIST changes: +BUMETANIDE1 MG PO; +CEFTRIAXON1 GM/50 ML IV; +COLACE100 MG PO; +COREG12.5 M1 PO; +KEFLEX 500 MG E2 CAP PO; +LISINOPRIL2.5 MG PO; +WARFARIN SODIUM4 MG PO
--- NOTE | ~2016-08-20 | PR ---
[place], [place] PROGRESS NOTE NAME: FELIBERTO MCGREGOR JR [facility] #: [id number] UNIT #: [id number] ROOM: DOCTOR: BANDAR CamISA BIRTHDATE: [birth year] DOS: 08/20/2016 CHIEF COMPLAINT: Follow up of left leg ulcer as well as right great toe ulcer. HISTORY OF PRESENT ILLNESS: The location of the wound is the left lower leg above the medial malleolus. It is venous in nature, complicated by diabetes. It is longstanding and has been open for several months. He has been coming to the wound clinic since December. This has been very slow to heal, but however, has made quite a bit of progress in the recent past weeks. [facility] for osteomyelitis of the right great toe, which has also been improving steadily. He was seen last week in the wound clinic where it was noted that he had some mental status changes and was noted to be hypotensive. He was sent to the ER for evaluation and was admitted for several days for further workup and management. He was discharged back just yesterday to the [facility] and is going to be continued on antibiotics per PCP recommendation till the 08/30/2016. He comes in today without any specific complaints. He had an Unna boot on the left leg, which was placed by me in the hospital. OBJECTIVE: VITAL SIGNS: Temperature 99.6, pulse of 80, respirations 18, blood pressure is 98/60. EXTREMITIES: The right great toe wound is generally scabbed over and it is measuring 0.3 x 0.4 x 0.1. It is not acutely tender or red. The left leg ulceration has quite a bit of epithelial tissue now on it. There was some dried adherent fibrin slough. This was debrided selectively with forceps, scissors and a curette and much of the wound underneath is essentially healed. He still has some small open area still present, which is 3.4 x 2.5 x 0.1, but there has been large amounts of healing since, even within that measurement has included a small area distal to the larger wound that appears to be healed presently with some epithelial tissue, but is included in the measurements. ASSESSMENT AND PLAN: Right great toe ulcer, which appears to be healing nicely. He is on IV antibiotics for osteomyelitis. He still had elevated sed rate and CRP when he was in the hospital. He is on IV antibiotics, is supposed to follow up with Infectious Disease in 2 weeks. As far as his venous leg ulcer, it is definitely improved quite a bit. We will continue with the collagen for now and I would like to continue with the Davinaa boot as well, have him change it. We will have the snf change it twice a week. The patient is to follow up in the Wound Clinic in 1 week. [place], [place] PROGRESS NOTE NAME: FELIBERTO MCGREGOR JR UNIT #: [id number] ROOM: DOCTOR: ISA PORTILLO M.D. BIRTHDATE: [birth year] ISA PORTILLO MD CM:TRACEY [phone] ISA PORTILLO M.D. 08/21/16 0236 interface
== END ==
LOC: WOUNDCARE 00:54
DX: E11.621 Type 2 diabetes mellitus with foot ulcer (principal); E11.622 Type 2 diabetes mellitus with other skin ulcer; I87.2 Venous insufficiency (chronic) (peripheral); L97.511 Non-pressure chronic ulcer of other part of right foot limited to breakdown of skin; L97.822 Non-pressure chronic ulcer of other part of left lower leg with fat layer exposed; E11.69 Type 2 diabetes mellitus with other specified complication; M86.8X7 Other osteomyelitis, ankle and foot

== ENCOUNTER → 2016-08-27 | Outpatient (CLI) | payer MEDICARE ==
--- NOTE | ~2016-08-27 | PR ---
[place], [place] PROGRESS NOTE NAME: FELIBERTO MCGREGOR JR [facility] #: [id number] UNIT #: [id number] ROOM: DOCTOR: BANDAR CamISA BIRTHDATE: [birth year] DOS: 08/27/2016 WOUND CARE FOLLOWUP NOTE CHIEF COMPLAINT: Followup of left leg as well as the right great toe ulcer. HISTORY OF PRESENT ILLNESS: The location of the wound is the left lower leg above the medial malleolus. It is venous in nature, complicated by diabetes and severe venous insufficiency. It has been present since last December. It has been very slow to heal, but has been making quite a bit of progress in the past few weeks. The right great toe is also improving greatly. He has a relatively new wound with osteomyelitis. He has completed his IV antibiotics at the [facility] and is going to be going home soon. He has no specific complaints. He is continuing to use the Unna boot on the left leg without any specific complaints. PHYSICAL EXAMINATION: VITAL SIGNS: His vitals are stable. Temperature is 98.2, pulse of 78, respirations 18, blood pressure is 100/70. WOUND EXAMINATION: The wound on the left lower leg is measuring much smaller at 0.6 x 0.3 x 0.2 and the wound on the right great toe is measuring about the same at 0.3 x 0.4 x 0.1. Selective debridement was done of both of these wounds. Tissue removed was just nonviable hyperkeratotic tissue and some fibrin slough. The wound on the left lower leg is much smaller in general and there is only a very small wound still present like as I said, 0.6 x 0.3 x 0.2. The instruments used were forceps, scissors and a curette as well as a #15 blade for the right great toe was trimmed down and the wound appears to be almost closed at this point. The edema is also much improved. ASSESSMENT AND PLAN: Venous stasis ulceration plus diabetes of the left lower leg, which is definitely almost healed at this point. We will continue with the same dressing. I would like to keep him in compression for at least another week. We can have until we can get some stockings for him. I would like to order a 2-layer system if he can get them. I think that would be easier for him to use and as far as the right great toe ulceration, clinically it looks good and I would just keep using the same dressing and this will likely heal within the next week or two. [place], [place] PROGRESS NOTE NAME: FELIBERTO MCGREGOR JR UNIT #: [id number] ROOM: DOCTOR: ISA PORTILLO M.D. BIRTHDATE: [birth year] ISA PORTILLO MD CM:TRACEY [phone] ISA PORTILLO M.D. 08/27/16 222 interface
== END ==
LOC: WOUNDCARE 02:43
DX: E11.621 Type 2 diabetes mellitus with foot ulcer (principal); I87.2 Venous insufficiency (chronic) (peripheral); E11.622 Type 2 diabetes mellitus with other skin ulcer; L97.511 Non-pressure chronic ulcer of other part of right foot limited to breakdown of skin; L97.821 Non-pressure chronic ulcer of other part of left lower leg limited to breakdown of skin

== ENCOUNTER → 2016-09-14 | Outpatient (CLI) | payer MEDICARE ==
[2016-09-14 16:12] LABS: HEMATOCRIT 36.5 % (42.0-52.0); HEMOGLOBIN 11.8 g/dl (14.0-18.0); MEAN CELL VOLUME 82.2 fl (80.0-94.0); MEAN CORPUSCULAR HGB 26.6 pg (27.0-31.0); MEAN CORPUSCULAR HGB CONC 32.3 g/dl (33.0-37.0); MEAN PLATELET VOLUME 9.9 fl (9.6-12.3); RED BLOOD COUNT 4.44 10*6/uL (4.50-5.90); RED CELL DISTRI WIDTH 15.7 % (0-14.5)
[2016-09-14 16:19] LABS: INTERNATIONAL NORM RATIO 3.5 (2.0-3.5); PROTHROMBIN TIME 40.2 SECONDS (9.0-12.4)
[2016-09-14 16:47] LABS: ALBUMIN 4.1 gm/dl (3.1-4.5); BILIRUBIN, TOTAL 0.5 mg/dl (0.2-1.0); POTASSIUM 4.3 mmol/L (3.5-5.1); TOTAL PROTEIN 8.1 gm/dL (6.4-8.2)
[2016-09-14 16:57] LABS: DIGOXIN 1.02 ng/ml (0.8-2.0)
== END | disposition home or self-care (01) ==
LOC: LAB 15:29
PROVIDERS: Family Medicine
DX: Z12.5 Encounter for screening for malignant neoplasm of prostate (principal); I10 Essential (primary) hypertension; E78.00 Pure hypercholesterolemia, unspecified; Z79.01 Long term (current) use of anticoagulants

== ENCOUNTER → 2016-09-16 | Outpatient (CLI) | payer MEDICARE ==
--- NOTE | ~2016-09-16 | PR ---
[place], [place] PROGRESS NOTE NAME: FELIBERTO MCGREGOR JR [facility] #: [id number] UNIT #: [id number] ROOM: DOCTOR: BANDAR CamISA BIRTHDATE: [birth year] DOS: 09/16/2016 WOUND CARE NOTE CHIEF COMPLAINT: New ulceration of the right great toe. HISTORY OF PRESENT ILLNESS: This patient is known to me from his previous wounds here, he had a right great toe ulcer secondary to diabetes and poor ill-fitting shoes. He also had a venous stasis ulceration of the left lower leg that took a long time to heal. It finally did heal after many months of therapy and [facility] for osteomyelitis of the right great toe and IV antibiotics. The wound appeared to be healed, both of the wounds, last time he was here and we discharged the patient. I did advise him to follow up with Podiatry regarding footwear. He did get some custom made shoes recently, however, we were not quite sure if those shoes were responsible for creating the ulceration of the right great toe or a previous pair which it is possible that a previous older pair of shoes were worn that created the blister. He does have a caregiver who is responsible for his care. In any case, it was not quite clear which shoes created the wound. His caregiver has felt that it was certain pair of older shoes and not his newer shoes, but it was not 100% clear. In any case, the patient says he wore some flip flops sometime last week, early this week and also wore his new diabetic shoes and at some point, he did notice a blister on a new area of the right great toe. It was in a completely different area than his original ulcer. So, he said he threw out his flip flops and made an appointment to come back to see us. He does have a new wound on the right great toe more on the medial aspect and not the tip of the toe. He has no other specific complaints. It does appear that he had a blister that broke. OBJECTIVE: VITAL SIGNS: Stable. Blood pressure is 120/70, pulse of 68, respirations 18, temperature is 98.1. WOUND EXAMINATION: The wound is clean, it is open, it is 0.6 x 0.6 x 0.1. There really is not even a callus formation around it, it just looks like a fresh new wound. No debridement was done. We will use Aquacel Ag or its equivalent Maxorb Ag for now and cover it with a bulky dressing and have him change it every other day. In the meantime, I want him to wear his postop shoes until we can get an apparel stock checker to evaluate him regarding diabetic footwear as it is not quite clear to me which shoes are creating the problem, but I do not want him to get into another pair of closed shoes until an apparel stock checker sees him. Follow up in 1 week. [place], [place] PROGRESS NOTE NAME: FELIBERTO MCGREGOR JR UNIT #: [id number] ROOM: DOCTOR: ISA PORTILLO M.D. BIRTHDATE: [birth year] ISA PORTILLO MD CM:TRACEY [phone] ISA PORTILLO M.D. 09/17/16 0558 interface
== END ==
LOC: WOUNDCARE 10:17
DX: E11.621 Type 2 diabetes mellitus with foot ulcer (principal); L97.511 Non-pressure chronic ulcer of other part of right foot limited to breakdown of skin; S90.411D Abrasion, right great toe, subsequent encounter; E11.69 Type 2 diabetes mellitus with other specified complication; M86.8X7 Other osteomyelitis, ankle and foot; L84 Corns and callosities; X58.XXXD Exposure to other specified factors, subsequent encounter

== ENCOUNTER → 2016-09-22 | Outpatient (CLI) | payer MEDICARE ==
[2016-09-22 09:20] LABS: INTERNATIONAL NORM RATIO 2.4 (2.0-3.5); PROTHROMBIN TIME 27.1 SECONDS (9.0-12.4)
== END | disposition home or self-care (01) ==
LOC: LAB 08:28
PROVIDERS: Family Medicine
DX: I10 Essential (primary) hypertension (principal); E78.00 Pure hypercholesterolemia, unspecified; Z79.01 Long term (current) use of anticoagulants

== ENCOUNTER → 2016-09-23 | Outpatient (CLI) | payer MEDICARE ==
--- NOTE | ~2016-09-23 | PR ---
[place], [place] PROGRESS NOTE NAME: FELIBERTO MCGREGOR JR [facility] #: [id number] UNIT #: [id number] ROOM: DOCTOR: BANDAR CamISA BIRTHDATE: [birth year] DOS: 09/23/2016 This is a routine wound care followup. CHIEF COMPLAINT: Ulcer of the right great toe. HISTORY OF PRESENT ILLNESS: This patient is known to me for a right great toe ulceration that was diabetic and associated with osteomyelitis as well as a longstanding left venous leg ulceration. Those 2 wounds have healed after many weeks of IV antibiotics as well as multiple weeks of wound care. He was discharged after that. However, within a week, had suffered a new ulceration apart from the previous ulceration due to him wearing flip flops at home. He was seen last week again for that reason where it was noted he had a new open wound of the right great toe and he comes in today for followup. Since then, the wound has been healing quite well. He offers no specific complaints. He has been using a postop shoe, which I had asked him to do until he was evaluated by an group account director for a new pair of diabetic shoes. We did arrange for an group account director to come and see him today while he was here for his wound care appointment, so he could evaluate the situation and order him some custom made shoes. In any case, the patient has no new complaints. PHYSICAL EXAMINATION: VITAL SIGNS: Stable. Temperature is 98, pulse of 64, respirations 18, blood pressure is 122/68. WOUND EXAMINATION: The wound is located on the right great toe on the plantar aspect. It looks to be closed at this time, it does not appear open. There is some scabbing as well as some hyperkeratosis around the periwound. This area was debrided of hyperkeratotic skin only with a #15 blade. There was no bleeding. The patient tolerated the debridement well. It looks like the wound remains closed underneath it and stable. ASSESSMENT AND PLAN: Healed right great toe ulcer. At this point, I would like to have him follow back up in 1 more week, just to make sure that this wound is closed and hopefully he will get his new shoes soon and he was fitted today for custom made footwear. Followup is in 1 week. [place], [place] PROGRESS NOTE NAME: FELIBERTO MCGREGOR JR UNIT #: [id number] ROOM: DOCTOR: ISA PORTILLO M.D. BIRTHDATE: [birth year] ISA PORTILLO MD CM:TRACEY [id number] ISA PORTILLO M.D. 09/24/16 0724 interface
== END ==
LOC: WOUNDCARE 01:14
DX: E11.621 Type 2 diabetes mellitus with foot ulcer (principal); L97.511 Non-pressure chronic ulcer of other part of right foot limited to breakdown of skin; E11.69 Type 2 diabetes mellitus with other specified complication; M86.8X7 Other osteomyelitis, ankle and foot; I87.2 Venous insufficiency (chronic) (peripheral)

== ENCOUNTER → 2016-09-30 | Outpatient (CLI) | payer MEDICARE ==
--- NOTE | ~2016-09-30 | PR ---
[place], [place] PROGRESS NOTE NAME: FELIBERTO MCGREGOR JR [facility] #: [id number] UNIT #: [id number] ROOM: DOCTOR: ISA PORTILLO M.D. BIRTHDATE: [birth year] DOS: 09/30/2016 ROUTINE WOUND CARE FOLLOWUP CHIEF COMPLAINT: Ulcer of the right great toe. HISTORY OF PRESENT ILLNESS: The patient had an ulcer on the right great toe that has been present now for 2-3 weeks. It was caused by injury from ill-fitting shoes and has a history of a recent great toe osteomyelitis with the separate wound that has healed with wound care and IV antibiotics. He is wearing his postop shoes. He has no new complaints. He was seen by the vest busheler last week for diabetic footwear and was fitted for it and he is awaiting these new shoes. Otherwise, no specific complaints. PHYSICAL EXAMINATION: VITAL SIGNS: As follows, afebrile, pulse is 60, respirations 18, blood pressure is 120/70. WOUND EXAMINATION: The wound is measuring 0.1 x 0.1 x 0.1. There is some callus around it. This area was selectively debrided with a #15 blade just to remove the callus around it. There was no bleeding. The patient tolerated the procedure well. The wound appears still is continuing to be healed underneath. ASSESSMENT AND PLAN: Recent osteo of the right great toe. The wound has healed. He also has a new wound that was recent that that appears to have healed as well. We will discharge the patient from the Wound Clinic and have him follow up in the future if necessary. I did advise that he is going to need regular podiatric care for trimming his toenails and for callus trimming. He is awaiting his new shoes. ISA PORTILLO MD CM:PNTRANS [phone] ISA PORTILLO M.D. 10/01/16 0147 interface
== END ==
LOC: WOUNDCARE 01:10
DX: E11.621 Type 2 diabetes mellitus with foot ulcer (principal); S90.411D Abrasion, right great toe, subsequent encounter; L97.511 Non-pressure chronic ulcer of other part of right foot limited to breakdown of skin; E11.69 Type 2 diabetes mellitus with other specified complication; M86.8X7 Other osteomyelitis, ankle and foot; X58.XXXD Exposure to other specified factors, subsequent encounter

== ENCOUNTER → 2016-10-27 | Outpatient (CLI) | payer MEDICARE ==
[2016-10-27 09:04] LABS: INTERNATIONAL NORM RATIO 1.1 (2.0-3.5); PROTHROMBIN TIME 11.7 SECONDS (9.0-12.4)
== END | disposition home or self-care (01) ==
LOC: LAB 07:43
PROVIDERS: Family Medicine
DX: I11.0 Hypertensive heart disease with heart failure (principal); I50.9 Heart failure, unspecified; E78.00 Pure hypercholesterolemia, unspecified; N40.0 Benign prostatic hyperplasia without lower urinary tract symptoms; Z79.01 Long term (current) use of anticoagulants

== ENCOUNTER → 2016-11-04 | Outpatient (CLI) | payer MEDICARE ==
[2016-11-04 08:06] LABS: INTERNATIONAL NORM RATIO 1.7 (2.0-3.5); PROTHROMBIN TIME 18.5 SECONDS (9.0-12.4)
== END | disposition home or self-care (01) ==
LOC: LAB 07:21
PROVIDERS: Family Medicine
DX: I10 Essential (primary) hypertension (principal); E78.00 Pure hypercholesterolemia, unspecified; Z79.01 Long term (current) use of anticoagulants

== ENCOUNTER → 2016-11-17 | Outpatient (CLI) | payer MEDICARE ==
[2016-11-17 08:37] LABS: INTERNATIONAL NORM RATIO 1.4 (2.0-3.5); PROTHROMBIN TIME 15.7 SECONDS (9.0-12.4)
== END | disposition home or self-care (01) ==
LOC: LAB 07:59
PROVIDERS: Family Medicine
DX: I11.0 Hypertensive heart disease with heart failure (principal); E78.00 Pure hypercholesterolemia, unspecified; N40.0 Benign prostatic hyperplasia without lower urinary tract symptoms

== ENCOUNTER → 2016-12-02 | Outpatient (CLI) | payer MEDICARE ==
[2016-12-02 09:22] LABS: INTERNATIONAL NORM RATIO 1.2 (2.0-3.5); PROTHROMBIN TIME 12.9 SECONDS (9.0-12.4)
== END | disposition home or self-care (01) ==
LOC: LAB 08:22
PROVIDERS: Family Medicine
DX: I11.0 Hypertensive heart disease with heart failure (principal); I50.9 Heart failure, unspecified; E78.00 Pure hypercholesterolemia, unspecified; N40.0 Benign prostatic hyperplasia without lower urinary tract symptoms; Z79.01 Long term (current) use of anticoagulants

== ENCOUNTER → 2017-01-05 | Outpatient (CLI) | payer MEDICARE ==
--- NOTE | ~2017-01-05 | PR ---
[place], [place] PROGRESS NOTE NAME: FELIBERTO MCGREGOR JR [facility] #: [id number] UNIT #: [id number] ROOM: DOCTOR: BANDAR CamISA BIRTHDATE: [birth year] DOS: 01/05/2017 WOUND CARE EVALUATION CHIEF COMPLAINT: Foot ulcer as well as leg ulcerations. HISTORY OF PRESENT ILLNESS: This is a 66-year-old male who is known to the Wound Clinic for previous ulcerations that took one of many months to heal. He had a chronic venous leg ulcer on the left lower extremity as well as a toe ulceration secondary to diabetes, neuropathy and osteomyelitis. It took an extended period of time to heal. The patient did heal his ulcerations; however, after many months of wound care, also had prolonged IV antibiotics. The patient had been discharged back in September and apparently comes in for a repeat evaluation. He says he has noticed several wounds. He has several wounds on his leg and also a wound on the bottom of his left foot, which he says just started past few days. The patient has had a recent diabetic shoes made for him that were fairly new, that he states he has been using at home. He just uses slippers to get around. PAST MEDICAL HISTORY: Significant for atrial fibrillation. He is on chronic Coumadin therapy, history of congestive heart failure, coronary artery disease, history of DVT of the left leg, venous ulcerations, venous stasis, chronic edema, hypertension, chronic renal failure, diabetes type 2, history of osteomyelitis of the right great toe. He is on oral agents for his diabetes. He is also mentally challenged. FAMILY HISTORY: Noncontributory. SOCIAL HISTORY: The patient is a nonsmoker and is single, does not drink alcohol. ALLERGIES: No known drug allergies. CURRENT MEDICATIONS: Current medications have not been entered yet. Most recent medications that are in the medical records are digoxin, lisinopril, finasteride, Colace, Bumex, allopurinol, glimepiride, Coumadin, Coreg, gemfibrozil and Tylenol. REVIEW OF SYSTEMS: Currently, the patient denies any pain, fevers or chills with the wounds. He said he just noticed the wound starting on the left lower leg and wanted to make sure that it got taken care of before it got worse. It is not causing any pain or discomfort at this time. He is quite vague about when he actually noticed the ulcer on the left foot. He also has refused for us to take off his compression stocking of the right lower extremity for a proper foot assessment. He apparently has been using Hydrofera on and the wounds, I guess he must have had some at home. He has had home health come before as well to help him in the past and has done quite well with the Unna boot therapy. OBJECTIVE: VITAL SIGNS: Stable. Temperature is 98.2, pulse of 80, respirations 18, blood [place], [place] PROGRESS NOTE NAME: FELIBERTO MCGREGOR JR UNIT #: [id number] ROOM: DOCTOR: SIA PORTILLO M.D. BIRTHDATE: [birth year] pressure is 122/78. EXTREMITIES: His pedal pulses are palpable. His foot is warm. He has chronic edema of the lower extremity and his toes are chronically edematous. So he has several different wounds. Wound #13 is located on the plantar aspect of the left foot, more towards the lateral aspect. It is measuring 1 x 0.6 x 0.4. There is a very thick callus and undermining noted approximately 0.5. There is no purulence or tenderness or what appears to be cellulitis. Wound #14 is located on the distal part of the foot. It is measuring 2.4 x 0.2 x 0.1. There is really no visible necrotic tissue. Wound #15 is located on the left lower leg medial aspect. This is a cluster of superficial ulcerations that is 5.3 x 4 x 0.3. Part of that has actual skin on it and epithelialization but there does appear to be a few open areas scattered throughout that area. Wound #16 is the left medial leg, it is measuring 2 x 1.3 x 0.15. Wound #17 is 0.7 x 0.6 x 0.1 and that is on the third toe dorsal aspect where the toenail would be, it is actually open. So a debridement was done of the plantar foot wound. The tissue removed was a devitalized callus as well as fibrin, slough and subcutaneous tissue. There was moderate bleeding that was controlled with pressure. The instruments utilized were a #15 blade, forceps and scissors as well as a curette. The patient tolerated the debridement well. Post debridement measurements are 1.2 x 0.8 x 0.2. No debridement was done of the distal lower leg wounds as they were felt to be fairly superficial at this time. ASSESSMENT AND PLAN: Diabetic foot ulcer of the left foot. We will go ahead and use a collagen dressing and a postop for now have him used felt offloading. A horseshoe shaped pad was applied to the outside area of the callus to see if this will help offload the area and have him follow up in one week. In addition, he does have recurrent venous stasis ulcerations. Currently, they are fairly superficial. He has had problems with very large wounds, it took a very long time to heal in the past. At this point, I would just go ahead and start a collagen and Unna boot right away. There is no sign of infection. I will have the Unna boot changed 2-3 times a week by Home Health. They can also change the foot dressing as well. He has had recent ABIs, which were within normal limits. He has had venous intervention with Dr. Lambert in the past. I will look through his labs to see what his diabetic control has been. He is to follow up in the Wound Clinic in one week. In addition, we will see if we can have a ____ come to see if there are any adjustments that need to be made with his footwear to hopefully prevent recurrent ulcerations. [place], [place] PROGRESS NOTE NAME: FELIBERTO MCGREGOR JR Riya [facility] #: [id number] UNIT #: [id number] ROOM: DOCTOR: ISA PORTILLO M.D. BIRTHDATE: [birth year] ISA PORTILLO MD CM:TRACEY [id number] ISA PORTILLO M.D. 01/06/17 1426 interface
== END | disposition home or self-care (01) ==
LOC: WOUNDCARE 04:50
DX: E11.621 Type 2 diabetes mellitus with foot ulcer (principal); L97.522 Non-pressure chronic ulcer of other part of left foot with fat layer exposed; I87.312 Chronic venous hypertension (idiopathic) with ulcer of left lower extremity; E11.622 Type 2 diabetes mellitus with other skin ulcer; L97.822 Non-pressure chronic ulcer of other part of left lower leg with fat layer exposed; E11.40 Type 2 diabetes mellitus with diabetic neuropathy, unspecified; E11.69 Type 2 diabetes mellitus with other specified complication; M86.8X7 Other osteomyelitis, ankle and foot; I48.91 Unspecified atrial fibrillation; I25.10 Atherosclerotic heart disease of native coronary artery without angina pectoris; E11.22 Type 2 diabetes mellitus with diabetic chronic kidney disease; I13.0 Hypertensive heart and chronic kidney disease with heart failure and stage 1 through stage 4 chronic kidney disease, or unspecified chronic kidney disease; N18.9 Chronic kidney disease, unspecified; I50.9 Heart failure, unspecified; L84 Corns and callosities; Z86.718 Personal history of other venous thrombosis and embolism; Z79.01 Long term (current) use of anticoagulants

== ENCOUNTER → 2017-01-12 | Outpatient (CLI) | payer MEDICARE ==
--- NOTE | ~2017-01-12 | PR ---
[place], [place] PROGRESS NOTE NAME: FELIBERTO MCGREGOR JR [facility] #: [id number] UNIT #: [id number] ROOM: DOCTOR: BANDAR CamISA BIRTHDATE: [birth year] DOS: 01/12/2017 WOUND CARE PROGRESS NOTE CHIEF COMPLAINT: Follow up of multiple wounds. HISTORY OF PRESENT ILLNESS: This is a 66-year-old male with diabetes, chronic atrial fibrillation, chronic renal insufficiency, neuropathy, congestive heart failure, chronic edema, recurrent diabetic ulcers and venous stasis ulcers, who was seen last week for the first time after several months of being healed. He came in with recurrent wounds, one was located on the left plantar foot. He also had an open area on the left third toe. He had several clustered wounds on the left medial ankle above the malleolus, where he has had a recurrent venous stasis ulcer and a few scattered superficial ulcers on the left leg as well. He did not let us evaluate his right leg at that time. He would not let us take his compression stocking off and he does seemed to have a very thick large callus with possible open area underneath that on the right toe. In any case, his dressings were placed last week and orders were for home health to come in and help with dressing changes 3 times a week. He had an Unna boot on the entire time without any complications and home health apparently never did come. So, it is not clear to me why that is. The patient does not know either. He has no pain, fevers or chills or change in drainage that he is aware of. OBJECTIVE: VITAL SIGNS: Stable, temperature is 98.5, pulse is 80, respirations are 18 and blood pressure is 122/70. SKIN: Wound #13 which is located on the left posterior foot is measuring 0.8 x 0.5 x 0.1. It looks much smaller. There is some callus but not a whole lot and it is clean. The depth is much improved as well from last week. No signs of infection. Wound #14 which is located on the left distal anterior foot is 0.9 x 0.6 x 0.2. There is no necrotic tissue present. Wound #15 is the medial ankle wound which is the one that is chronic and has been very difficult to heal in the past. It is measuring 1.6 x 1.6 x 0.1. There is some devitalized tissue present. There is maceration noted as well. Wound #16 on the left lower leg midline is actually scabbed over and appears healed. It is 0.1 x 0.1 x 0.1. Wound #17 appears healed and that is on third toe area and that appears healed as well with no visible necrotic tissue. Once again, there was callus on the right great toe with an area that appeared to be open but it was difficult to tell before debridement. A selective debridement was done of the left leg wounds. First the plantar wound was debrided selectively. The tissue removed was just hyperkeratosis, fibrin, slough and biofilm from the base of the wound. This was accomplished with a #15 blade. The patient tolerated the debridement well. There was some bleeding that was controlled with pressure. The post-debridement measurements are as follows, 0.8 x 0.5 x 0.1. The next wound that was debrided was the medial ankle wound and that was selectively debrided, just fibrin and slough. The instrument used was a curette. There was minimal bleeding that was controlled with pressure and post-debridement measurements are 4.4 x 2.4 x 0.1. The clustered area with some scattered areas of foot appears to be superficial ulceration. No sign of acute infection noted. The next wound that was debrided was the right great toe. The tissue removed was just [place], [place] PROGRESS NOTE NAME: [facility]ELIBERTO [facility]CGREGOR JR [facility] [id number] UNIT #: [id number] ROOM: DOCTOR: ISA PORTILLO M.D. BIRTHDATE: [birth year] hyperkeratosis callus only. There was a small area of breakdown still open underneath it at 0.4 x 0.3 x 0.1, where there was some minimal bleeding but otherwise it looks pretty good. No sign of infection. ASSESSMENT AND PLAN: Chronic venous stasis ulceration of the left leg. We will continue with the Puracol, but I would add Maxorb to it as it did seem macerated. I would like home health to change dressing at least once before he comes back next week. We have had a hard time healing this wound in the past this, so I would like to make sure we keep a close eye on this. The plantar wound of the left foot appears stable and improving. We will continue with the current dressing and have him followup in one week. He has diabetic shoes. He states he is wearing his shoes that he has at home that are diabetic and they have not caused any ulcers that he is aware of. So, hopefully those are adequate for him; however, we may want him to follow up with ____ regarding his previous shoes to see if there are any adjustments that can be made for him, but he would most likely need to go to their facility for adjustment. So, we will definitely recommend this again when he comes in next week. The right great toe has a small wound which is very superficial and we will continue just topical antibiotic ointment for now and toe netting. Followup is in one week. ISA PORTILLO MD CM:PNTRANS [id number] ISA PORTILLO M.D. 01/12/17 1253 interface
[2017-01-12 11:27] LABS: PROTHROMBIN TIME 22.1 SECONDS (9.0-12.4)
== END | disposition home or self-care (01) ==
LOC: LAB 08:04 → WOUNDCARE 08:04
PROVIDERS: Family Medicine
DX: S91.101A Unspecified open wound of right great toe without damage to nail, initial encounter (principal); I83.029 Varicose veins of left lower extremity with ulcer of unspecified site; I11.0 Hypertensive heart disease with heart failure; I50.9 Heart failure, unspecified; I48.2 Chronic atrial fibrillation; E11.40 Type 2 diabetes mellitus with diabetic neuropathy, unspecified; E78.00 Pure hypercholesterolemia, unspecified; N40.0 Benign prostatic hyperplasia without lower urinary tract symptoms; Z79.01 Long term (current) use of anticoagulants; X58.XXXA Exposure to other specified factors, initial encounter; Y93.89 Activity, other specified; Y92.89 Other specified places as the place of occurrence of the external cause; Y99.8 Other external cause status

== ENCOUNTER → 2017-01-19 | Outpatient (CLI) | payer MEDICARE ==
--- NOTE | ~2017-01-19 | PR ---
[place], [place] PROGRESS NOTE NAME: FELIBERTO MCGREGOR JR [facility] #: [id number] UNIT #: [id number] ROOM: DOCTOR: BANDAR CamISA BIRTHDATE: [birth year] DOS: 01/19/2017 CHIEF COMPLAINT: Followup of multiple wounds. HISTORY OF PRESENT ILLNESS: This is a 66-year-old male with multiple medical problems, chronic atrial fibrillation, chronic edema, chronic renal insufficiency, diabetes, neuropathy, congestive heart failure, recurrent diabetic foot ulcers and venous stasis ulcers. He has been coming to the wound clinic now for 2 weeks. He has recurrence of venous leg ulcer of the left leg and multiple diabetic foot ulcer. Home health has been coming in to help. He offers no specific complaints. We did use Unna boot on his left leg for his venous ulcer and have been using a postop shoe and a bulky dressing for the left foot ulceration. He comes in without any specific complaints. OBJECTIVE: VITAL SIGNS: Stable. Temperature is 98.4, pulse of 82, respirations 18, blood pressure is 120/74. WOUND EXAM: Wound #13, which is the plantar foot is measuring slightly bigger than last week of 1.2 x 0.5 x 0.1. There is a small area that is an abrasion distally from this wound, which may have been from the offloading pad that was present, but otherwise the wound itself looks clean and definitely is not as deep as it has been. Wound #14, which is an open wound of the lateral fifth toe area is 0.7 x 0.5 x 0.1, looks good. Wound #15, is the left medial ankle wound and is measuring 4 x 3.5 x 0.1 in depth. There is still one area of one obviously open area with some fibrin slough present at the distal part of the wound. The rest of the wound does have skin over it, but it is somewhat macerated and there is large amounts of dressing material and fibrin slough present throughout the wound measurements. Wound #16 is healed on the medial leg and wound #18, which is the right great toe is 0.1 x 0.1 x 0.1 and that looks healed. The debridement was done of the left plantar wound, it was just a selective debridement only. The tissue removed was just devitalized hyperkeratotic tissue. Instrument utilized was #15 blade, forceps and scissors. There was no bleeding and the post-debridement measurements are slightly different at 0.8 x 0.6 x 0.1. The patient tolerated the debridement well. Debridement of the left lateral fifth toe was also performed just to remove devitalized tissue only and post-debridement measurements are 0.5 x 0.4 x 0.2, there was no bleeding. The patient tolerated the debridement well and this was accomplished with forceps and scissors. Debridement of the left medial leg wound was accomplished also with forceps and scissors to remove devitalized tissue only. There was minimal bleeding. Post-debridement measurements are 4.3 x 3.5 x 0.2. The patient tolerated the debridement well. ASSESSMENT AND PLAN: Multiple wounds, the plantar wound of the left foot definitely is stable and improving. We will continue with collagen. I would like to hold off on that offloading metatarsal pad, as it may have caused a little bit of an abrasion around it, so we will hold off for this week. He does have a postop shoe that he is using for offloading. He also will use collagen and Maxorb, as there is some maceration noted. He also has a very small wound on the left fifth toe area, so we will go ahead and use dressings on that as well. Collagen is to be utilized for this stiff toe. There is no sign of an [place], [place] PROGRESS NOTE NAME: FELIBERTO MCGREGOR JR Riya UNIT #: [id number] ROOM: DOCTOR: ISA PORTILLO M.D. BIRTHDATE: [birth year] active infection. The right great toe wound is healed. He has a venous ulcer of his left leg, which has not really improved much yet. I think that I would like to go back to TheraHoney, which we have used that in the past. He does seem to have done quite well with it and I would only like to use it on the actual open area with fibrin slough and not on the rest of the wound. We will continue with the Unna boot and have him follow up in one week. There is no sign of an active infection. It does appear that the patient to get his shoes adjusted per patient report. Followup is in one week. ISA PORTILLO MD CM:TRACEY [id number] ISA PORTILLO M.D. 01/20/17 0028 interface
== END ==
LOC: WOUNDCARE 03:43
DX: E11.621 Type 2 diabetes mellitus with foot ulcer (principal); L97.522 Non-pressure chronic ulcer of other part of left foot with fat layer exposed; I87.312 Chronic venous hypertension (idiopathic) with ulcer of left lower extremity; E11.622 Type 2 diabetes mellitus with other skin ulcer; L97.822 Non-pressure chronic ulcer of other part of left lower leg with fat layer exposed; I48.2 Chronic atrial fibrillation; E11.40 Type 2 diabetes mellitus with diabetic neuropathy, unspecified; I50.9 Heart failure, unspecified; E11.22 Type 2 diabetes mellitus with diabetic chronic kidney disease; N18.9 Chronic kidney disease, unspecified

== ENCOUNTER → 2017-01-27 | Outpatient (CLI) | payer MEDICARE ==
--- NOTE | ~2017-01-27 | PR ---
[place], [place] PROGRESS NOTE NAME: FELIBERTO MCGREGOR JR [facility] #: [id number] UNIT #: [id number] ROOM: DOCTOR: BANDAR CamISA BIRTHDATE: [birth year] DOS: 01/27/2017 CHIEF COMPLAINT: Followup of multiple wounds. HISTORY OF PRESENT ILLNESS: This is a 66-year-old male with multiple medical problems including diabetes, chronic atrial fibrillation, chronic renal insufficiency, congestive heart failure, chronic edema, recurrent diabetic and venous stasis ulcers. He has been coming to the Wound Clinic for 3 weeks now for multiple diabetic foot ulcers as well as a venous ulcer of the left leg. We have been using collagen to the wounds on the feet, so he has one on the plantar aspect between the fourth and fifth metatarsal and one on the fifth lateral tell. He has had one on the right great toe, which at this point appears healed. He has a venous ulceration of his left leg, which he is a recurrent wound and he has been on compression wrap with the Unna boot therapy. Home health cannot come in to his home and he has been keeping the dressings on, intact for a week where they are being changed here in the Wound Clinic. He comes in today without any specific complaints. No problems with the Unna boot. OBJECTIVE: VITAL SIGNS: Stable. Temperature is 98.2, pulse of 84, respirations 18, blood pressure is 146/76. Wound #13, which is located on the plantar aspect of the foot is measuring 0.6 x 0.6 x 0.1. It looks clean. It looks to be starting to epithelialize. There is minimal callus. Wound #14 is measuring smaller at 0.3 x 0.3 x 0.1 and is looking quite good. Wound #15 is a venous ulcer and it is measuring 3 x 4.5 x 0.1; however, within that has a lot of epithelialization and actually there is quite a bit of healing in that margin. A selective debridement was done of the plantar wound just to remove the devitalized tissue only. This occurs with forceps, scissors and a #15 blade as well as a venous ulcer on the left ankle. Post-debridement, there was no bleeding. The patient tolerated the debridement well. There was a selective debridement only. Cetacaine spray was used for topical anesthesia. The post-debridement measurements on the plantar foot wound is 0.7 x 0.6 x 0.1. The post-debridement measurements of the medial leg wound is 0.1 x 0.1 x 0.1, which actually has healed underneath that. The venous ulcer of the left medial leg is measuring 1.26 x 0.7 x 0.1, post-debridement. ASSESSMENT AND PLAN: Multiple diabetic wounds and venous ulceration, which seems to be responding to the current therapy. We will continue with the same dressings for the medial leg wound. He is using TheraHoney, continue to use that for the plantar wound of the foot. We will continue to use collagen and Maxorb and for the pinky cyst lateral toe, will use that as well. Continue Unna boot therapy and have him follow back up in one week. [place], [place] PROGRESS NOTE NAME: [facility]O [facility] [id number] UNIT #: [id number] ROOM: DOCTOR: ISA PORTILLO M.D. BIRTHDATE: [birth year] ISA PORTILLO MD CM:TRACEY [id number] ISA PORTILLO M.D. 01/28/17106 interface
== END | disposition home or self-care (01) ==
LOC: WOUNDCARE 01:41
DX: I87.312 Chronic venous hypertension (idiopathic) with ulcer of left lower extremity (principal); E11.622 Type 2 diabetes mellitus with other skin ulcer; L97.322 Non-pressure chronic ulcer of left ankle with fat layer exposed; E11.621 Type 2 diabetes mellitus with foot ulcer; L97.522 Non-pressure chronic ulcer of other part of left foot with fat layer exposed; I48.2 Chronic atrial fibrillation; I50.9 Heart failure, unspecified; L84 Corns and callosities

== ENCOUNTER → 2017-02-05 | Outpatient (CLI) | payer MEDICARE ==
[2017-02-05 11:16] LABS: INTERNATIONAL NORM RATIO 2.3 (2.0-3.5)
== END | disposition home or self-care (01) ==
LOC: LAB 10:13
PROVIDERS: Family Medicine
DX: Z79.01 Long term (current) use of anticoagulants (principal)

== ENCOUNTER → 2017-02-05 | Outpatient (CLI) | payer MEDICARE | END | disposition home or self-care (01) | LOC: WOUNDCARE 06:59 | DX: E11.621 Type 2 diabetes mellitus with foot ulcer (principal); L97.522 Non-pressure chronic ulcer of other part of left foot with fat layer exposed; I87.312 Chronic venous hypertension (idiopathic) with ulcer of left lower extremity; E11.622 Type 2 diabetes mellitus with other skin ulcer; L97.822 Non-pressure chronic ulcer of other part of left lower leg with fat layer exposed ==

== ENCOUNTER → 2017-02-10 | Outpatient (CLI) | payer MEDICARE | END | disposition home or self-care (01) | LOC: WOUNDCARE 02:00 | DX: E11.621 Type 2 diabetes mellitus with foot ulcer (principal); L97.522 Non-pressure chronic ulcer of other part of left foot with fat layer exposed; L97.422 Non-pressure chronic ulcer of left heel and midfoot with fat layer exposed; I87.312 Chronic venous hypertension (idiopathic) with ulcer of left lower extremity; L97.511 Non-pressure chronic ulcer of other part of right foot limited to breakdown of skin; I48.91 Unspecified atrial fibrillation; I11.0 Hypertensive heart disease with heart failure; I50.9 Heart failure, unspecified; I25.10 Atherosclerotic heart disease of native coronary artery without angina pectoris; Z86.718 Personal history of other venous thrombosis and embolism; E11.69 Type 2 diabetes mellitus with other specified complication; M86.8X7 Other osteomyelitis, ankle and foot ==

== ENCOUNTER → 2017-02-17 | Outpatient (CLI) | payer MEDICARE | LOC: WOUNDCARE 02:29 | DX: E11.621 Type 2 diabetes mellitus with foot ulcer (principal); I87.312 Chronic venous hypertension (idiopathic) with ulcer of left lower extremity; L97.422 Non-pressure chronic ulcer of left heel and midfoot with fat layer exposed; I48.91 Unspecified atrial fibrillation; I25.10 Atherosclerotic heart disease of native coronary artery without angina pectoris; E11.69 Type 2 diabetes mellitus with other specified complication; M86.8X7 Other osteomyelitis, ankle and foot; E11.22 Type 2 diabetes mellitus with diabetic chronic kidney disease; I13.0 Hypertensive heart and chronic kidney disease with heart failure and stage 1 through stage 4 chronic kidney disease, or unspecified chronic kidney disease; N18.9 Chronic kidney disease, unspecified; I50.9 Heart failure, unspecified; Z86.718 Personal history of other venous thrombosis and embolism ==

== ENCOUNTER → 2017-02-24 | Outpatient (CLI) | payer MEDICARE | END | disposition home or self-care (01) | LOC: WOUNDCARE 01:12 | DX: E11.621 Type 2 diabetes mellitus with foot ulcer (principal); I87.312 Chronic venous hypertension (idiopathic) with ulcer of left lower extremity; L97.511 Non-pressure chronic ulcer of other part of right foot limited to breakdown of skin; L97.521 Non-pressure chronic ulcer of other part of left foot limited to breakdown of skin; E11.622 Type 2 diabetes mellitus with other skin ulcer; L97.821 Non-pressure chronic ulcer of other part of left lower leg limited to breakdown of skin; I48.91 Unspecified atrial fibrillation; I25.10 Atherosclerotic heart disease of native coronary artery without angina pectoris; E11.69 Type 2 diabetes mellitus with other specified complication; M86.8X7 Other osteomyelitis, ankle and foot; E11.22 Type 2 diabetes mellitus with diabetic chronic kidney disease; I13.10 Hypertensive heart and chronic kidney disease without heart failure, with stage 1 through stage 4 chronic kidney disease, or unspecified chronic kidney disease; N18.9 Chronic kidney disease, unspecified; Z86.718 Personal history of other venous thrombosis and embolism ==

== ENCOUNTER → 2017-03-03 | Outpatient (CLI) | payer MEDICARE | END | disposition home or self-care (01) | LOC: WOUNDCARE 03:57 | DX: E11.621 Type 2 diabetes mellitus with foot ulcer (principal); E11.622 Type 2 diabetes mellitus with other skin ulcer; L97.521 Non-pressure chronic ulcer of other part of left foot limited to breakdown of skin; L97.821 Non-pressure chronic ulcer of other part of left lower leg limited to breakdown of skin; L97.511 Non-pressure chronic ulcer of other part of right foot limited to breakdown of skin; I48.91 Unspecified atrial fibrillation; I25.10 Atherosclerotic heart disease of native coronary artery without angina pectoris; E11.69 Type 2 diabetes mellitus with other specified complication; M86.8X7 Other osteomyelitis, ankle and foot; E11.22 Type 2 diabetes mellitus with diabetic chronic kidney disease; I13.0 Hypertensive heart and chronic kidney disease with heart failure and stage 1 through stage 4 chronic kidney disease, or unspecified chronic kidney disease; N18.9 Chronic kidney disease, unspecified; I50.9 Heart failure, unspecified; Z86.718 Personal history of other venous thrombosis and embolism ==

== ENCOUNTER → 2017-03-10 | Outpatient (CLI) | payer MEDICARE | END | disposition home or self-care (01) | LOC: WOUNDCARE 01:07 | DX: E11.621 Type 2 diabetes mellitus with foot ulcer (principal); L97.422 Non-pressure chronic ulcer of left heel and midfoot with fat layer exposed; L97.522 Non-pressure chronic ulcer of other part of left foot with fat layer exposed; L97.511 Non-pressure chronic ulcer of other part of right foot limited to breakdown of skin; E11.622 Type 2 diabetes mellitus with other skin ulcer; L97.821 Non-pressure chronic ulcer of other part of left lower leg limited to breakdown of skin; I48.91 Unspecified atrial fibrillation; I25.10 Atherosclerotic heart disease of native coronary artery without angina pectoris; E11.69 Type 2 diabetes mellitus with other specified complication; M86.8X7 Other osteomyelitis, ankle and foot; E11.22 Type 2 diabetes mellitus with diabetic chronic kidney disease; I13.0 Hypertensive heart and chronic kidney disease with heart failure and stage 1 through stage 4 chronic kidney disease, or unspecified chronic kidney disease; I50.9 Heart failure, unspecified; N18.9 Chronic kidney disease, unspecified; Z86.718 Personal history of other venous thrombosis and embolism ==

== ENCOUNTER → 2017-03-17 | Outpatient (CLI) | payer MEDICARE | END | disposition home or self-care (01) | LOC: WOUNDCARE 04:35 | DX: E11.621 Type 2 diabetes mellitus with foot ulcer (principal); L97.521 Non-pressure chronic ulcer of other part of left foot limited to breakdown of skin; L97.511 Non-pressure chronic ulcer of other part of right foot limited to breakdown of skin; I48.91 Unspecified atrial fibrillation; I11.0 Hypertensive heart disease with heart failure; I50.9 Heart failure, unspecified; I25.10 Atherosclerotic heart disease of native coronary artery without angina pectoris; E11.69 Type 2 diabetes mellitus with other specified complication; M86.8X7 Other osteomyelitis, ankle and foot; Z86.718 Personal history of other venous thrombosis and embolism ==

== ENCOUNTER → 2017-03-24 | Outpatient (CLI) | payer MEDICARE | END | disposition home or self-care (01) | LOC: WOUNDCARE 03:31 | DX: E11.621 Type 2 diabetes mellitus with foot ulcer (principal); L97.422 Non-pressure chronic ulcer of left heel and midfoot with fat layer exposed; L97.522 Non-pressure chronic ulcer of other part of left foot with fat layer exposed; E11.622 Type 2 diabetes mellitus with other skin ulcer; L97.821 Non-pressure chronic ulcer of other part of left lower leg limited to breakdown of skin; I48.91 Unspecified atrial fibrillation; I25.10 Atherosclerotic heart disease of native coronary artery without angina pectoris; E11.69 Type 2 diabetes mellitus with other specified complication; M86.8X7 Other osteomyelitis, ankle and foot; I11.0 Hypertensive heart disease with heart failure; I50.9 Heart failure, unspecified; Z86.718 Personal history of other venous thrombosis and embolism ==

== ENCOUNTER → 2017-03-31 | Outpatient (CLI) | payer MEDICARE | END | disposition home or self-care (01) | LOC: WOUNDCARE 04:25 | DX: E11.621 Type 2 diabetes mellitus with foot ulcer (principal); L97.422 Non-pressure chronic ulcer of left heel and midfoot with fat layer exposed; L97.522 Non-pressure chronic ulcer of other part of left foot with fat layer exposed; L97.511 Non-pressure chronic ulcer of other part of right foot limited to breakdown of skin; I25.10 Atherosclerotic heart disease of native coronary artery without angina pectoris; I48.91 Unspecified atrial fibrillation; I11.0 Hypertensive heart disease with heart failure; I50.9 Heart failure, unspecified; E11.69 Type 2 diabetes mellitus with other specified complication; M86.8X7 Other osteomyelitis, ankle and foot; Z86.718 Personal history of other venous thrombosis and embolism ==

== ENCOUNTER → 2017-04-07 | Outpatient (CLI) | payer MEDICARE | END | disposition home or self-care (01) | LOC: WOUNDCARE 01:04 | DX: E11.621 Type 2 diabetes mellitus with foot ulcer (principal); L97.511 Non-pressure chronic ulcer of other part of right foot limited to breakdown of skin; I48.91 Unspecified atrial fibrillation; I25.10 Atherosclerotic heart disease of native coronary artery without angina pectoris; E11.69 Type 2 diabetes mellitus with other specified complication; M86.8X7 Other osteomyelitis, ankle and foot; I13.0 Hypertensive heart and chronic kidney disease with heart failure and stage 1 through stage 4 chronic kidney disease, or unspecified chronic kidney disease; E11.22 Type 2 diabetes mellitus with diabetic chronic kidney disease; N18.9 Chronic kidney disease, unspecified; Z86.718 Personal history of other venous thrombosis and embolism ==

== ENCOUNTER → 2017-05-03 | Outpatient (CLI) | payer MEDICARE | END | disposition home or self-care (01) | LOC: WOUNDCARE 02:40 | DX: E11.621 Type 2 diabetes mellitus with foot ulcer (principal); L97.422 Non-pressure chronic ulcer of left heel and midfoot with fat layer exposed; L97.522 Non-pressure chronic ulcer of other part of left foot with fat layer exposed; I48.91 Unspecified atrial fibrillation; I25.10 Atherosclerotic heart disease of native coronary artery without angina pectoris; E11.22 Type 2 diabetes mellitus with diabetic chronic kidney disease; I13.0 Hypertensive heart and chronic kidney disease with heart failure and stage 1 through stage 4 chronic kidney disease, or unspecified chronic kidney disease; N18.9 Chronic kidney disease, unspecified; I50.9 Heart failure, unspecified; E11.69 Type 2 diabetes mellitus with other specified complication; M86.8X7 Other osteomyelitis, ankle and foot; Z86.718 Personal history of other venous thrombosis and embolism ==

== ENCOUNTER → 2017-05-12 | Outpatient (CLI) | payer MEDICARE | END | disposition home or self-care (01) | LOC: WOUNDCARE 01:26 | DX: E11.621 Type 2 diabetes mellitus with foot ulcer (principal); L97.422 Non-pressure chronic ulcer of left heel and midfoot with fat layer exposed; L97.522 Non-pressure chronic ulcer of other part of left foot with fat layer exposed; I48.91 Unspecified atrial fibrillation; I25.10 Atherosclerotic heart disease of native coronary artery without angina pectoris; E11.22 Type 2 diabetes mellitus with diabetic chronic kidney disease; I13.0 Hypertensive heart and chronic kidney disease with heart failure and stage 1 through stage 4 chronic kidney disease, or unspecified chronic kidney disease; I50.9 Heart failure, unspecified; N18.9 Chronic kidney disease, unspecified; E11.69 Type 2 diabetes mellitus with other specified complication; M86.8X7 Other osteomyelitis, ankle and foot; Z86.718 Personal history of other venous thrombosis and embolism ==

== ENCOUNTER → 2017-07-03 | Outpatient (CLI) | payer MEDICARE ==
[2017-07-03 09:10] LABS: HEMATOCRIT 37.5 % (42.0-52.0); HEMOGLOBIN 11.7 g/dl (14.0-18.0); MEAN CELL VOLUME 76.5 fl (80.0-94.0); MEAN CORPUSCULAR HGB 23.9 pg (27.0-31.0); MEAN CORPUSCULAR HGB CONC 31.2 g/dl (33.0-37.0); MEAN PLATELET VOLUME 9.8 fl (9.6-12.3); RED BLOOD COUNT 4.9 10*6/uL (4.50-5.90); RED CELL DISTRI WIDTH 15.3 % (0-14.5); WHITE BLOOD COUNT 7.8 10*3/uL (4.8-10.8)
[2017-07-03 09:37] LABS: INTERNATIONAL NORM RATIO 1.7 (2.0-3.5)
[2017-07-03 09:39] LABS: ALBUMIN 3.7 gm/dl (3.1-4.5); POTASSIUM 4.2 mmol/L (3.5-5.1); TOTAL PROTEIN 7.9 gm/dL (6.4-8.2)
== END | disposition home or self-care (01) ==
LOC: LAB 08:38
PROVIDERS: Family Medicine
DX: D64.9 Anemia, unspecified (principal); E55.9 Vitamin D deficiency, unspecified; I10 Essential (primary) hypertension; E78.9 Disorder of lipoprotein metabolism, unspecified; Z79.01 Long term (current) use of anticoagulants

== ENCOUNTER → 2017-08-03 | Outpatient (CLI) | payer MEDICARE ==
[2017-08-03 11:34] LABS: INTERNATIONAL NORM RATIO 1.8 (2.0-3.5)
== END | disposition home or self-care (01) ==
LOC: LAB 11:09
PROVIDERS: Family Medicine
DX: Z51.81 Encounter for therapeutic drug level monitoring (principal); Z79.01 Long term (current) use of anticoagulants

== ENCOUNTER → 2017-08-24 | Outpatient (CLI) | payer MEDICARE ==
[2017-08-24 11:09] LABS: INTERNATIONAL NORM RATIO 2.5 (2.0-3.5)
== END | disposition home or self-care (01) ==
LOC: LAB 10:17
PROVIDERS: Family Medicine
DX: Z51.81 Encounter for therapeutic drug level monitoring (principal); Z79.01 Long term (current) use of anticoagulants

== ENCOUNTER → 2017-10-06 | Outpatient (CLI) | payer MEDICARE ==
[2017-10-06 11:10] LABS: INTERNATIONAL NORM RATIO 2.9 (2.0-3.5)
== END | disposition home or self-care (01) ==
LOC: LAB 09:59
PROVIDERS: Family Medicine
DX: Z12.5 Encounter for screening for malignant neoplasm of prostate (principal); E55.9 Vitamin D deficiency, unspecified; E78.00 Pure hypercholesterolemia, unspecified; D64.9 Anemia, unspecified; I10 Essential (primary) hypertension; Z79.01 Long term (current) use of anticoagulants

== ENCOUNTER 2017-10-27 18:33 | Inpatient (IN) | payer MEDICARE ==
[~2017-10-27] VITALS: Ht 185.4 cm; Wt 93.5 kg
--- NOTE | ~2017-10-27 | PR ---
[place], [place] PROGRESS NOTE NAME: FELIBERTO MCGREGOR JR [facility] #: [id number] UNIT #: [id number] ROOM: 519 DOCTOR: LEX CANCHOLA DPM BIRTHDATE: [birth year] DOS: 10/30/2017 SUBJECTIVE: The patient was seen for postop day 1 of partial fifth metatarsal amputation bilateral foot with I and D and debridement, bilateral. The patient is having no acute pain. OBJECTIVE: Upon removal of the dressing and packing, there are no signs of purulent drainage. There is mild foul odor still noted of the dressings of the right foot, but much improved since . ASSESSMENT: Osteomyelitis bilateral, ulcerations with infection, bilateral foot. PLAN: Dressings changed. A 1 inch packing with wet to dry dressings applied bilateral. Ordered a wound VAC at 125 mmHg continuous change every 3 days. Ordered packing with wet to dry dressing b.i.d. until the wound VAC can be started. We will reappoint with the patient tomorrow or Wednesday. LEX CANCHOLA DPM CM:TRACEY [id number] LEX CANCHOLA DPM 10/31/17 0229 interface
--- NOTE | ~2017-10-27 | WRIGHTHP ---
[place], [place] PATIENT HISTORY AND PHYSICAL EXAM NAME: FELIBERTO MCGREGOR JR [facility] #: [id number] UNIT #: [id number] ROOM: 519 DOCTOR: CALVIN HINTON MD BIRTHDATE: [birth year] DOS: 10/27/2017 HISTORY OF PRESENT ILLNESS: This patient is very well known to us from previous admissions. He lives at home in the [facility], was last hospitalized in 07/2016. He lived at the [facility] after discharge. Left [place] in January of last year and got into the [place]. He did not follow with wound care after January. He lives at home alone. He does not remember seeing any physicians recently. He came in yesterday because his pain was much worse and foot was not looking good and he was limping and there was a lot of odor coming from the foot, so his friend brought him to the Emergency Room and when his dressings were taken off, the right big toe and the left big toe fell off. He has multiple wounds on his legs. The patient denies having any discomfort or pain. Denies having any chest pains or palpitations. PAST MEDICAL HISTORY: Significant for: 1. History of osteomyelitis of right big toe. 2. Hypertension. 3. Chronic venous stasis. 4. Chronic atrial fibrillation. 5. Type 2 diabetes. 6. Diabetic nephropathy. 7. Diabetic neuropathy. 8. MRDD. MEDICATIONS: He is currently on are allopurinol 100 daily; Bumex 2 mg daily; vitamin D 2000 b.i.d.; digoxin 0.125 Wednesday, Wednesday and Wednesday, 0.25 rest of the days; iron 325 daily; finasteride 5 daily; gemfibrozil 600 b.i.d.; lisinopril 2.5 daily; naproxen 500 daily; Coumadin as noted. SOCIAL HISTORY: Nonsmoker. Lives at home alone. PHYSICAL EXAMINATION: GENERAL: He is awake and alert and oriented, pleasant, in no distress. VITAL SIGNS: Graph trend shows a pressure of 152/75, pulse of 90, respirations 18, temperature 98.5. LUNGS: Diminished breath sounds. No wheezes, rales or rhonchi heard. HEART: Regular. ABDOMEN: Obese. EXTREMITIES: Chronic venous stasis changes noticed bilaterally, multiple ulcers noticed on the right foot. The right little toe is missing. Left big toe is also missing. Again, multiple small ulcers as well as the BENNY hose making a large cut with indentation with redness and drainage. ASSESSMENT AND PLAN: 1. Multiple draining wounds of both feet. The patient will need to have it debrided and wound care started. For right now, Maxalt will be applied. Discussed with nursing staff. 2. Possible bone infection. MRI of the feet has been ordered. ESR and CRP are elevated. 3. Chronic atrial fibrillation, on Coumadin. Protime to be checked daily. He [place], [place] PATIENT HISTORY AND PHYSICAL EXAM NAME: FELIBERTO MCGREGOR JR UNIT #: [id number] ROOM: [facility] DOCTOR: CALVIN HINTON MD BIRTHDATE: [birth year] should not take Naprosyn while on Coumadin. 4. Venous stasis disease. His arterial Dopplers in 06/2016 did not show any disease at all. 5. Adult failure to thrive. Social service needs to be consulted for possible placement. CALVIN HINTON MD CM:HISPHYS:PATIENT HISTORY AND PHYSICAL EXAMINATION [id number] CALVIN HINTON MD 10/28/17 1119 interface
--- NOTE | ~2017-10-27 | PR ---
[place], [place] PROGRESS NOTE NAME: [facility] [id number] UNIT #: [id number] ROOM: 519 DOCTOR: CALVIN HINTON MD BIRTHDATE: [birth year] DOS: 10/31/2017 SUBJECTIVE: Patient is about the same, pleasant, in no distress. OBJECTIVE: VITAL SIGNS: Blood pressure is 142/86, pulse of 78, respirations 18, temperature 98.6. LUNGS: Clear. HEART: Regular. ABDOMEN: Soft. EXTREMITIES: Without any edema. LABORATORY DATA: WBC count 13.2, hemoglobin 10.4, hematocrit 34.6, platelets 304. ESR 78. Protime is subtherapeutic. BUN 27, creatinine 1.91. ASSESSMENT AND PLAN: 1. Poorly healing wounds of the leg with osteomyelitis of the metatarsal bone. Patient is getting IV antibiotics. PICC line will be placed tomorrow. 2. Type 2 diabetes mellitus. Blood sugar is on the low side. His appetite is fair, eating fairly well. 3. Chronic atrial fibrillation, on Coumadin. Protime subtherapeutic, adjustments being made. 4. Adult failure to thrive, to go to [facility] tomorrow, hopefully. Social Service has been consulted. Wound cultures only showing Proteus mirabilis, so hopefully we can discontinue the vancomycin. CALVIN HINTON MD CM:PNTRANS [id number] CALVIN HINTON MD 10/31/17 7866 interface
--- NOTE | ~2017-10-27 | PR ---
[place], [place] PROGRESS NOTE NAME: FELIBERTO MCGREGOR JR UNIT #: [id number] ROOM: 519 DOCTOR: ZEE WINSTON,SONNY Viera BIRTHDATE: [birth year] DOS: 10/31/2017 ADDENDUM After reviewing the chart and labs, I agree with the above plans. Follow up with the patient clinically and adjust accordingly. SONNY KOCH MD CM:PNTRANS [id number] SONNY KOCH MD 11/01/17 0325 interface
--- NOTE | ~2017-10-27 | CON ---
[place], [place] REPORT OF CONSULTATION NAME: FELIBERTO MCGREGOR JR [facility] #: [id number] UNIT #: [id number] ROOM: 519 DOCTOR: LEX CANCHOLA DPM BIRTHDATE: [birth year] DOS: 10/28/2017 SUBJECTIVE: The patient presents with chief complaint of infection both feet, which he states has been noted for approximately 2 months. The patient stated that his right fifth toe was hanging by a string and he took it off. The patient was subsequently admitted yesterday to the hospital. PAST MEDICAL HISTORY: Osteomyelitis, right great toe; hypertension; chronic venous stasis; chronic atrial fibrillation; type 2 diabetes; diabetic neuropathy; diabetic nephropathy; MRDD. PHYSICAL EXAMINATION: LOWER EXTREMITY EXAMINATION: Chronic venous stasis, bilateral lower leg. Pedal pulses diminished, PT bilateral. There are draining ulcerations, bilateral foot. Amputated fifth right toe with ulceration which is to and through subcutaneous tissue level. There is serous drainage noted. No fluctuance or palpable abscess noted. There is also an ulceration to the lateral fifth right metatarsal base with localized necrotic changes. There is also ulceration to the fifth left toe with erosion of the fifth toe noted and serous drainage. Again, no fluctuance or palpable abscess to the area. Serous drainage noted. There is also an ulceration to the dorsal left mid foot, which apparently was caused by a compression hose. The ulceration is to and through subcutaneous tissue level. No deep sinus tract or dorsal left foot abscess identified clinically. Radiographically, 3 foot views of the right foot were performed at this point and revealed multifocal erosive changes of the fourth and fifth MPJ as well as possible fracture or osteomyelitis of the fifth right metatarsal base, which appears to be a possible avulsion fracture. No radiographs were taken of the left foot. The patient's WBC is 10.4 today. The patient has an MRI performed bilateral foot. Results are pending. The patient also has scheduled arterial vascular exam bilateral is still pending. ASSESSMENT: Diabetic infection, bilateral foot with probable osteomyelitis, bilateral diabetic peripheral neuropathy. PLAN: Evaluation and management discussed with the patient. He needs to go for a debridement with bone biopsy, bilateral foot, possible amputation of the fifth digit, left; possible amputation of the partial fifth metatarsal, right and also possible fourth right toe and fourth metatarsal partial. Discussed the case with Dr. Albright who will perform the surgery tomorrow. The patient will be n.p.o. after midnight. We will wait for results of arterial testing and MRI bilateral results to finalize surgical treatment, planning and procedures to be performed. The patient will be scheduled for surgery tomorrow. [place], [place] REPORT OF CONSULTATION NAME: FELIBERTO MCGREGOR JR UNIT #: [id number] ROOM: [facility] DOCTOR: LEX CANCHOLA DPM BIRTHDATE: [birth year] LEX CANCHOLA DPM CM:CONSTR:REPORT OF CONSULTATION 1256 11/01/17 1008 interface
--- NOTE | ~2017-10-27 | DS ---
[place], [place] DISCHARGE SUMMARY NAME: FELIBERTO MCGREGOR JR [facility] #: [id number] UNIT #: [id number] ROOM: 519 DOCTOR: CALVIN HINTON MD BIRTHDATE: [birth year] DOS: 11/03/2017 HISTORY OF PRESENT ILLNESS: The patient is 67 years old. The patient lives at home alone. A friend visiting him felt that the patient's wounds were pretty foul smelling, so he was brought to the Emergency Room and in the Emergency Room, he was noticed to have poorly healing wounds all throughout his feet and he had self-amputation of his big toe on both sides. He was admitted to the hospital this time. An MRI was done, which showed osteomyelitis of metatarsal bone on the right side. He had a Podiatry consultation, Infectious Disease. Arterial Doppler was negative. Multiple IV antibiotics were given, which have improved his wounds. He was taken for debridement and wound VAC has been applied. The patient seems to be slowly improving with improvement in his swelling in both legs and with decreased redness and evidence of cellulitis also improved. About 4 days after admission, he developed hematuria, which was painless. Urine culture was done, which showed no bacterial growth. Blood culture showed no bacterial growth. CT scan of the abdomen and pelvis was done, which showed a possibility of a renal mass and MRI proved that this most likely is a renal cell CA on the left side. The patient's condition was discussed with him in detail. 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 He would need to go to a rehab center for continued wound care, so Social Service was consulted and he is able to go to [facility] today. His last white cell count is 9.0 and his kidney functions, last one is BUN of 40, creatinine 1.77. Upon discharge, please make sure that consultation is written with Dr. Cruz for addressing the renal tumor. DISCHARGE DIAGNOSES: 1. Poorly healing wounds of both feet. 2. Chronic venous stasis with normal arterial Dopplers. 3. Cellulitis of both legs with osteomyelitis of the fifth metatarsal bone on the left side, amputation of small toes on both feet, acute kidney injury in a patient with chronic kidney disease. 4. Chronic atrial fibrillation. 5. Type 2 diabetes mellitus, non-insulin dependent. 6. Adult failure to thrive. 7. Tumor of the left kidney, most likely renal cell carcinoma. The patient to have an appointment with urologist, Dr. Cruz as an outpatient. MEDICATIONS ON DISCHARGE: Will be vancomycin 1 gram every 36 hours; ceftriaxone 2 grams IV daily; finasteride 5 daily; Tylenol 500 twice a day; gemfibrozil 600 b.i.d.; glimepiride 2 mg daily; Digoxin 0.25 alternating with 0.125 daily; iron 325 q. 8; vitamin D 2000 units daily; Caltrate 600 daily; allopurinol 100 mg daily; Bumex 2 mg daily; lisinopril 2.5 daily; Colace 100 mg daily; Coumadin 5 mg Wednesday, Wednesday, Wednesday, , Wednesday, Wednesday and 10 mg on Wednesday. The patient to be followed by Dr. Julien at the [facility]. [place], [place] DISCHARGE SUMMARY NAME: [id number] UNIT #: [id number] ROOM: [facility] DOCTOR: CALVIN HINTON MD BIRTHDATE: [birth year] CALVIN HINTON MD CM:TWYLA [id number] CALVIN HINTON MD 11/03/17 1400 interface
--- NOTE | ~2017-10-27 | O ---
[place], [place] OPERATIVE NOTE NAME: [facility]REGOR JR [id number] UNIT #: [id number] ROOM: 519 DOCTOR: CAILIN BOYD DPM BIRTHDATE: [birth year] DOS: 10/29/2017 INDICATION FOR PROCEDURE: The patient was seen in preoperative area and his feet were evaluated. There was noted to be large ulceration at the lateral right fifth metatarsal head and lateral right fifth metatarsal base. He had a large chronic laceration of the dorsal mid foot that extended from medial lateral across the dorsal mid foot and he also had a part of his left fifth toe missing and he had a wound present that had palpable bone. I discussed with the patient as well as his caregivers that my plan was to go in and remove any infected bone or tissue. This would most likely entail partial fifth ray amputations as well as debridement of the ulcer at the fifth metatarsal base, right foot and debridement of the ulcer at the dorsal left mid foot. I discussed pros and cons of the surgery as well as possible complications. I told them that he may need further procedures for debridements and possible amputation. If his infection did not respond to antibiotics, he could possibly require a proximal amputation such as a BKA. They were given the opportunity to ask questions and all questions were answered. His consent was signed and the patient was transferred to the OR. SURGEON: Cailin Boyd DPM PREOPERATIVE DIAGNOSES: Chronic ulcerations, right fifth metatarsophalangeal joint, left fifth metatarsophalangeal joint, dorsal left mid foot and right fifth metatarsal base with infection and probable osteomyelitis. POSTOPERATIVE DIAGNOSES: Chronic ulcerations, right fifth metatarsophalangeal joint, left fifth metatarsophalangeal joint, dorsal left mid foot and right fifth metatarsal base with infection and probable osteomyelitis. PROCEDURE: Sharp excisional debridement of the wounds, right fifth metatarsal base and left dorsal mid foot and then partial excision, fifth metatarsal, right foot and then partial fifth ray amputation, left foot. ANESTHESIA: LMAC. INJECTABLES: 10 mL of 0.5% Marcaine plain. ESTIMATED BLOOD LOSS: About 10 mL. COMPLICATIONS: None. PROCEDURE: After appropriate preoperative evaluation, the patient brought in the OR and placed on the OR table in supine position. Anesthesia was then administered per anesthesia record. Next, a total of 10 mL of 0.5% Marcaine plain was injected in field block fashion both feet. The area was then prepped and draped in usual sterile manner and both feet were lowered to the surgical field. Attention was directed to the right foot first. There was a large wound noted at the right lateral fifth metatarsal base. Using a rongeur, any necrotic or nonviable tissue was removed. I also used a 15 blade as well. This dissection was down through subcutaneous tissue down to the level of muscle and [place], [place] OPERATIVE NOTE NAME: FELIBERTO MCGREGOR JR UNIT #: [id number] ROOM: [facility] DOCTOR: DEB JIMENEZ,CAILIN BIRTHDATE: [birth year] tendon. All nonviable tissue was removed at this time, sharp excisional debridement was performed. No bone was palpable at this time. There was odor present, but no purulence encountered. Attention was directed to the lateral side of the right foot at the fifth metatarsal where the fifth toe was already absent and there was palpable metatarsal distal fifth metatarsal noted. Next, using a 15 blade, incision was made over the prominent bone and sharp dissection exposed the distal half of the fifth metatarsal. Next, using a bone cutting forceps, the distal half of the metatarsal was transected. Bone was removed to take it back to the point where there was good hard normal bone. Note that the distal metatarsal head purulence within the bone. There was no gross abscess of the soft tissues, but there was some odor and again some purulence in the bone. At this time, any bleeders were bovied as necessary at the right foot. Also, bone cultures were done and bone will be sent to pathology from the fifth metatarsal. That area was packed on the right foot and attention was directed to the left foot at this time. The left fifth MPJ had part of the toe present and the fifth metatarsal head was palpable. A linear incision was made at the lateral fifth metatarsal head, left foot and it was carried around the fifth toe in a racquet type incision. The remaining portion of the toe was disarticulated from the MPJ and there was some mild purulence noted in the joint. Upon palpation and debridement of the left fifth metatarsal head, there was purulence within the bone. Bone cutters were then used to resect the fifth metatarsal back to good healthy bone and this bone was removed. Bone was sent for culture as well as pathology. A Bovie was used to cauterize any bleeders at this time. Next, using a pulse hotel supplies salesperson, 3 liters of normal saline was infiltrated through the wounds on both feet. Note that the dorsal left mid foot wound was debrided sharply down to the level of subcutaneous tissue prior to irrigating the wounds. Again, the wounds were irrigated with 3 liters of normal saline on each foot. The wounds were now clean and infected bone was removed. Using 2-0 nylon, about 2/3 of the incision on the left foot was closed. The remaining area was packed. Adaptic was applied to the dorsal left mid foot wound and packing was applied to the right fifth MPJ wound as well as right fifth metatarsal base wound followed by 4 x 4s, ABD, Kerlix and Uri wrap. Vascularity was established to the digits and to the feet bilaterally. The patient tolerated procedure and anesthesia well and left the OR with vital signs stable and intact and transferred to the recovery room. I discussed with his family postoperatively that he would need a wound VAC and possible bioengineered skin grafting over the next several weeks to speed up healing. The patient will be followed up tomorrow for reevaluation of both feet. [place], [place] OPERATIVE NOTE NAME: FELIBERTO MCGREGOR JR UNIT #: [id number] ROOM: 519 DOCTOR: CAILIN BOYD DPM BIRTHDATE: [birth year] CAILIN BOYD DPM CM:OPRECORD:OPERATIVE NOTE [id number] CAILIN BOYD DPM 10/29/17 1330 interface
--- NOTE | ~2017-10-27 | PR ---
[place], [place] PROGRESS NOTE NAME: FELIBERTO MCGREGOR JR UNIT #: [id number] ROOM: 519 DOCTOR: ZEE WINSTON,SONNY Viera BIRTHDATE: [birth year] DOS: ADDENDUM Agree to above plans as described. We will continue to follow and make adjustments accordingly. SONNY KOCH MD CM:PNTRANS 08 [phone] SONNY KOCH MD 10/30/17 2110 interface
--- NOTE | ~2017-10-27 | PR ---
[place], [place] PROGRESS NOTE NAME: FELIBERTO MCGREGOR JR [facility] #: [id number] UNIT #: [id number] ROOM: 519 DOCTOR: CALVIN HINTON MD BIRTHDATE: [birth year] DOS: 11/03/2017 SUBJECTIVE: The patient is not having any complaints today. Did receive his wound VACs. OBJECTIVE: VITAL SIGNS: Graphic trend shows a pressure of 127/83, pulse of 71, respirations 18, temperature 98.3. LUNGS: Diminished breath sounds, clear. HEART: Regular. ABDOMEN: Obese. EXTREMITIES: Without any edema. ASSESSMENT AND PLAN: 1. Osteomyelitis of the metatarsal bone on the right. The patient is getting wound VAC and IV antibiotics. The plan is to [facility] him to [facility] today. 2. Renal cell carcinoma, most likely in the left kidney. The patient will need to be seen by Urology as an outpatient for removal. CALVIN HINTON MD CM:PNTRANS [phone] CALVIN HINTON MD 11/03/17 1404 interface
--- NOTE | ~2017-10-27 | PR ---
[place], [place] PROGRESS NOTE NAME: [facility]REGOR JR [id number] UNIT #: [id number] ROOM: 519 DOCTOR: LEX CANCHOLA DPM BIRTHDATE: [birth year] DOS: 11/02/2017 SUBJECTIVE: The patient seen postop day #4, bilateral partial fifth metatarsal amputation with I and D. The patient is having no pain, is resting comfortably. The dressing and packing is intact. No signs of foul odor. No further drainage. Decreased erythema. ASSESSMENT: Postop bilateral foot. PLAN: The patient is supposed to have wound VAC applied today. Keep the packing intact until wound VAC is applied. If not, the packing can be changed as previous orders. Discussed the case with the wound care nurse. The patient is going to extended care facility and I ordered wound VAC bilateral foot to be continued at the extended care facility. We will follow the patient tomorrow if he is in-house, otherwise the patient will be followed as outpatient. LEX CANCHOLA DPM CM:TRACEY [phone] LEX CANCHOLA DPM 11/02/17 1657 interface
--- NOTE | ~2017-10-27 | PR ---
[place], [place] PROGRESS NOTE NAME: FELIBERTO MCGREGOR JR [facility] #: [id number] UNIT #: [id number] ROOM: 519 DOCTOR: KELLI YORKAUGUST BIRTHDATE: [birth year] DOS: 10/31/2017 SUBJECTIVE: The patient is a pleasant 67-year-old male who is on antibiotics for bilateral foot infection, status post surgical debridement on 10/29/2017. The only culture that has came back positive has Proteus. There is also gram-positive cocci on the Gram stain. Operative cultures are pending. Pathology is pending as well. He remains on IV Merrem as well as vancomycin. He is alert and oriented, feels well. He denies fevers, chills, nausea, vomiting or diarrhea. No rash or itch. No cough, shortness of breath. He did have some hematuria today. He was sent for CT of the abdomen and pelvis that is pending. LABORATORY DATA: WBC 13.2, platelets 304. BUN 27, creatinine 1.91. Last vancomycin trough yesterday 16.6. PHYSICAL EXAMINATION: VITAL SIGNS: Show temperature 99.1, pulse 79, respirations 20, BP 145/81. GENERAL: A 67-year-old male in no acute distress. HEENT: Normocephalic. No thrush. NECK: No cervical lymphadenopathy. LUNGS: Clear to auscultation bilaterally. Respirations even and unlabored. HEART: Regular rhythm. No murmur appreciated. ABDOMEN: Soft, nontender, nondistended. EXTREMITIES: No edema. Has chronic hyperpigmentation, bilateral lower extremities, bilateral feet wrapped, foul odor from dressings. ASSESSMENT: Osteomyelitis of the right fifth metatarsal and left foot joint septic arthritis, status post debridement and partial fifth ray amputation on 10/29/2017. PLAN: Continue vancomycin and Merrem. Follow up on operative cultures and pathology, anticipate 6 weeks of IV antibiotics. Case discussed with Dr. Sonny Koch. The patient needs to have a PICC line placed for his long-term IV antibiotics. ADDENDUM After reviewing the chart and labs, I agree with the above plans. Follow up with the patient clinically and adjust accordingly. SHARON PEREIRA CNP [place], [place] PROGRESS NOTE NAME: FELIBERTO MCGREGOR JR UNIT #: [id number] ROOM: [facility] DOCTOR: KELLI YORK,AUGUST BIRTHDATE: [birth year] SONNY KOCH MD CM:PNJONH [id number] AUGUST KELLI YORK 11/01/17 0323 interface
--- NOTE | ~2017-10-27 | PR ---
[place], [place] PROGRESS NOTE NAME: FELIBERTO MCGREGOR JR UNIT #: [id number] ROOM: 519 DOCTOR: KELLI YORK,AUGUST BIRTHDATE: [birth year] DOS: 10/30/2017 SUBJECTIVE: The patient is being followed for bilateral foot wounds. He is currently receiving Merrem and vancomycin. He underwent surgical debridement yesterday. Cultures are pending as is pathology. His admitting blood cultures are sterile. He has one wound culture which had Gram-positive cocci in pairs and clusters on the Gram stain as well as Gram-negative bacilli. Thus far, cultures only grown out Proteus that was from the right foot. Cultures from the left foot preliminarily are sterile. He is alert and oriented. Denies any fevers or chills. No nausea, vomiting or diarrhea. No rash or itch. No cough, shortness of breath, no pain. He is somewhat depressed. LABORATORY DATA: Today show vancomycin 16.6. Cultures as reviewed above. PHYSICAL EXAMINATION: VITAL SIGNS: Temperature 99.7, pulse 86, respirations 20, BP 130/77: GENERAL: A 67-year-old male in no acute distress. HEENT: Normocephalic, no thrush. LUNGS: Clear to auscultation bilaterally. Respirations even and unlabored. HEART: Regular rhythm. No murmur appreciated. ABDOMEN: Soft, nontender, nondistended. EXTREMITIES: No edema. He does have hyperpigmentation in bilateral lower extremities, bilateral feet wrapped. SKIN: Otherwise, warm, dry, free of rashes. Hep-Lock, no phlebitis. ASSESSMENT: Acute osteomyelitis, right fifth metatarsal; left foot joint septic arthritis, status post debridement and partial fifth ray amputation October 29. He is currently on vancomycin and Merrem. PLAN: Follow up on operative cultures and pathology. Plan for 6 weeks of IV antibiotics. ADDENDUM Agree to above plans as described. We will continue to follow and make adjustments accordingly. AUGUST CHELA PEREIRA [place], [place] PROGRESS NOTE NAME: FELIBERTO MCGREGOR JR [facility] UNIT #: [id number] ROOM: 519 DOCTOR: KELLI YORK,AUGUST BIRTHDATE: [birth year] SONNY KOCH MD CM:TRACEY 19 AUGUST KELLI YORK 10/30/17 2110 interface
--- NOTE | ~2017-10-27 | PR ---
[place], [place] PROGRESS NOTE NAME: [facility]REGOR JR [id number] #: [id number] ROOM: 519 DOCTOR: CALVIN HINTON MD BIRTHDATE: [birth year] DOS: 11/02/2017 SUBJECTIVE: The patient is not having any complaints today. OBJECTIVE: VITAL SIGNS: Graphic trend shows a pressure of 122/74, pulse of 86, respirations 20, temperature 97.7. LUNGS: Diminished breath sounds, clear. HEART: Regular. ABDOMEN: Soft. EXTREMITIES: Dressings on. ASSESSMENT AND PLAN: 1. Osteomyelitis, status post PICC line placement for IV antibiotics. The patient to go to [facility] tomorrow. 2. Painless hematuria. MRI showing a large renal tumor on the left kidney, most likely renal cell carcinoma. The patient to have nephrectomy done as an outpatient. We will consult urology upon discharge. 3. Chronic atrial fibrillation, on Coumadin. Routine labs to be ordered for tomorrow. CALVIN HINTON MD CM:PNTRANS [id number] CALVIN HINTON MD 11/02/17 8378 interface
--- NOTE | ~2017-10-27 | PR ---
[place], [place] PROGRESS NOTE NAME: FELIBERTO MCGREGOR JR [facility] #: [id number] UNIT #: [id number] ROOM: 519 DOCTOR: CAILIN BOYD DPM BIRTHDATE: [birth year] DOS: 11/01/2017 SUBJECTIVE: This patient is seen postop day #3 for bilateral foot surgery including a partial fifth metatarsal amputation, bilateral foot with I and D and debridement. Patient is doing well, has no complaints regarding his feet. OBJECTIVE: Upon removal of the dressing and packing, the wounds are clean. Minimal drainage noted at the right lateral fifth metatarsal base, but the other wounds are very clean and granular with no purulent drainage or malodor, no erythema, no increased temperature, no signs of abscess. Overall, his feet appear to be responding nicely to treatment at this time. ASSESSMENT: Osteomyelitis bilaterally, status post surgery bilaterally. PLAN: Packing and dressing is changed. We are still awaiting a wound VAC. Continue with b.i.d. dressing changes with packing and dry dressing. Follow him up tomorrow for reevaluation. CAILIN BOYD DPM CM:TRACEY [id number] CAILIN BOYD DPM 11/02/17 0016 interface
--- NOTE | ~2017-10-27 | PR ---
[place], [place] PROGRESS NOTE NAME: FELIBERTO MCGREGOR JR [facility] #: [id number] UNIT #: [id number] ROOM: 519 DOCTOR: CALVIN HINTON MD BIRTHDATE: [birth year] DOS: 10/29/2017 SUBJECTIVE: The patient is doing fine without any complaints. OBJECTIVE: VITAL SIGNS: Graphic trend shows a pressure 117/61, pulse of 80, respirations 20, temperature 98.1. LUNGS: Diminished breath sounds, clear. HEART: Irregular. ABDOMEN: Soft. EXTREMITIES: No change from yesterday. Arterial Doppler, which was negative, MRI of the foot shows osteomyelitis of the fifth metatarsal on the left and diffuse cellulitis of the right and great toe osteomyelitis. ASSESSMENT AND PLAN: 1. Osteomyelitis, on IV antibiotics. I appreciate all consultants' input. Continue same antibiotics. 2. Poorly healing wounds from venous stasis as well as diabetic disease. The patient is awaiting debridement today. May need metatarsal amputation. 3. Adult failure to thrive for placement. 4. Chronic atrial fibrillation, on Coumadin. Protime is on the low side today. Awaiting surgery. We will restart Coumadin after surgery. CALVIN HINTON MD CM:PNTRANS [phone] CALVIN HINTON MD 10/30/17 0540 interface
--- NOTE | ~2017-10-27 | PR ---
[place], [place] PROGRESS NOTE NAME: FELIBERTO MCGREGOR JR [facility] #: [id number] UNIT #: [id number] ROOM: 519 DOCTOR: CALVIN HINTON MD BIRTHDATE: [birth year] DOS: SUBJECTIVE: The patient is feeling fairly good, does not have any complaints of pain. He underwent surgery yesterday. It was mostly debridement of the wounds and amputation of the stump of the left fifth toe. The fifth metatarsal bone was also removed. He does not have any complaints this morning. OBJECTIVE: VITAL SIGNS: Graphic trend shows pressure 136/59, pulse of 72, respirations 20, temperature 98.3, T-max 100.9. LUNGS: Clear. HEART: Irregular heart rate in the low 90s. ABDOMEN: Soft. EXTREMITIES: The dressings were not opened this morning. LABORATORY DATA: Wound culture shows Proteus mirabilis, which is sensitive to meropenem. ASSESSMENT AND PLAN: 1. Poorly healing wounds of the lower legs, status post debridement and amputation of the stump of the left fifth toe as well as removal of metatarsal bone, which is affected by osteomyelitis. 2. Osteomyelitis, on IV antibiotics. PICC line will be placed. 3. Adult failure to thrive, to consider going to [facility], hopefully can be discharged on Wednesday. 4. Chronic atrial fibrillation, restart Coumadin. 5. Type 2 diabetes mellitus. Blood sugar is controlled. CALVIN HINTON MD CM:PNTRANS [id number] CALVIN HINTON MD 10/30/17 1353 interface
--- NOTE | ~2017-10-27 | PR ---
[place], [place] PROGRESS NOTE NAME: [facility]EL[facility]CGREGOR JR [facility] [id number] UNIT #: [id number] ROOM: 519 DOCTOR: CALVIN HINTON MD BIRTHDATE: [birth year] DOS: SUBJECTIVE: The patient is doing fairly well, does not have any complaints. He did have hematuria during yesterday afternoon. OBJECTIVE: VITAL SIGNS: Graphic trend shows a pressure of 109/89, pulse of 65, respirations 18, temperature 98.5. LUNGS: Diminished breath sounds. HEART: Regular. ABDOMEN: Obese, soft. EXTREMITIES: No edema, chronic venous stasis wounds are covered by dressings, which have not been opened. LABORATORY DATA: White cell count is normal at 8.8, hemoglobin 10.8, hematocrit 36.3, platelets 320. Protime 11.5 with an INR of 1.1. BMP: Glucose 98, BUN 28, creatinine 1.78. ESR 93. ASSESSMENT AND PLAN: 1. Osteomyelitis, on IV antibiotics. 2. Poorly healing wounds, status post debridement. The patient to go to rehab for continued IV antibiotics. PICC line is being placed today. 3. Chronic atrial fibrillation. Protime is subtherapeutic. The Coumadin was just restarted after the procedure. 4. Hematuria. This is new onset. He has never had it before. CT of the abdomen shows a possibility of a small hydronephrosis on the left side with the possibility of ureteral stone with a mass in the left kidney. We will go ahead and arrange for an MRI of the kidney without contrast. 5. Chronic kidney disease with acute kidney injury. Kidney functions have improved with IV fluids. CALVIN HINTON MD CM:PNTRANS [id number] CALVIN HINTON MD 11/01/172156 interface
[~2017-10-27 18:33] MED LIST changes: -ACETAMINOPHEN500 M1 PO; -DIGITEK0.125 MG PO; -DIGITEK0.25 MG PO; +DIGITEK125 MCG PO; +DIGITEK250 MCG PO; +MAPAP9.6 MG/0.3 PO
[2017-10-27 18:42] VITALS: BP 171/75
[2017-10-27 19:16] LABS: BASO # 0.1 10*3/uL (0.0-0.1); BASO % 0.4 % (0.0-1.0); EOS # 0.1 10*3/uL (0.0-0.4); EOS % 0.9 % (1.0-4.0); HEMATOCRIT 36.9 % (42.0-52.0); HEMOGLOBIN 11.4 g/dl (14.0-18.0); LYMPH # 0.9 10*3/uL (1.3-4.4); LYMPH % 8.1 % (27.0-41.0); MEAN CELL VOLUME 74.7 fl (80.0-94.0); MEAN CORPUSCULAR HGB 23.1 pg (27.0-31.0); MEAN CORPUSCULAR HGB CONC 30.9 g/dl (33.0-37.0); MEAN PLATELET VOLUME 9.4 fl (9.6-12.3); MONO # 1.5 10*3/uL (0.1-1.0); MONO % 12.9 % (3.0-9.0); NEUT # 8.9 10*3/uL (2.3-7.9); PLATELET COUNT AUTOMATED 336 10*3/uL (130-400); RED BLOOD COUNT 4.94 10*6/uL (4.50-5.90); RED CELL DISTRI WIDTH 15.2 % (0-14.5); WHITE BLOOD COUNT 11.6 10*3/uL (4.8-10.8)
[2017-10-27 19:26] LABS: ACT PARTIAL THROMBO TIME 45.8 SECONDS (20.8-31.5); INTERNATIONAL NORM RATIO 3.6 (2.0-3.5)
[2017-10-27 19:30] LABS: ALBUMIN 3.8 gm/dl (3.1-4.5); CREATININE 2.19 mg/dL (0.70-1.30); POTASSIUM 4.1 mmol/L (3.5-5.1); TOTAL PROTEIN 8.5 gm/dL (6.4-8.2)
[2017-10-27 20:16] VITALS: BP 139/74
[2017-10-27 21:15] VITALS: BP 124/86
[2017-10-27] MEDS ORDERED: COUMADIN5 M2 PO ×2 (23:45→23:46)
[2017-10-27] MEDS ORDERED: EC NAPROSYN,NA500 MG PO (23:48)
[2017-10-28] VITALS: BP 136/76
[2017-10-28 06:05] LABS: CREATININE 2.18 mg/dL (0.70-1.30); POTASSIUM 4.2 mmol/L (3.5-5.1)
[2017-10-28 06:14] LABS: BASO # 0.1 10*3/uL (0.0-0.1); BASO % 0.6 % (0.0-1.0); EOS # 0.2 10*3/uL (0.0-0.4); EOS % 2.2 % (1.0-4.0); HEMOGLOBIN 10.4 g/dl (14.0-18.0); LYMPH % 9.6 % (27.0-41.0); MEAN CELL VOLUME 76.1 fl (80.0-94.0); MEAN CORPUSCULAR HGB 23.3 pg (27.0-31.0); MEAN CORPUSCULAR HGB CONC 30.6 g/dl (33.0-37.0); MEAN PLATELET VOLUME 9.7 fl (9.6-12.3); MONO # 1.3 10*3/uL (0.1-1.0); MONO % 12.7 % (3.0-9.0); NEUT # 7.7 10*3/uL (2.3-7.9); NEUT % 74.2 % (47.0-73.0); PLATELET COUNT AUTOMATED 300 10*3/uL (130-400); RED BLOOD COUNT 4.47 10*6/uL (4.50-5.90); RED CELL DISTRI WIDTH 15.1 % (0-14.5); WHITE BLOOD COUNT 10.4 10*3/uL (4.8-10.8)
[2017-10-28 08:00] VITALS: BP 152/75
[2017-10-28 10:00] LABS: INTERNATIONAL NORM RATIO 3.7 (2.0-3.5)
[2017-10-28 16:00] VITALS: BP 149/83
[2017-10-28 20:00] VITALS: BP 129/63
[2017-10-29] VITALS (9 sets, daily range): BP systolic 110–154; BP diastolic 60–77
[2017-10-29 07:10] LABS: INTERNATIONAL NORM RATIO 1.4 (2.0-3.5)
[2017-10-30] VITALS: BP 150/82
[2017-10-30 04:00] VITALS: BP 136/59
[2017-10-30 08:00] VITALS: BP 140/69
[2017-10-30 12:00] VITALS: BP 130/77
[2017-10-30 16:00] VITALS: BP 158/79
[2017-10-30 20:00] VITALS: BP 135/85
[2017-10-31] VITALS: BP 142/86
[2017-10-31 05:47] LABS: CREATININE 1.91 mg/dL (0.70-1.30); POTASSIUM 3.5 mmol/L (3.5-5.1)
[2017-10-31 05:55] LABS: BASO # 0.1 10*3/uL (0.0-0.1); BASO % 0.4 % (0.0-1.0); EOS # 0.2 10*3/uL (0.0-0.4); EOS % 1.6 % (1.0-4.0); HEMATOCRIT 34.6 % (42.0-52.0); HEMOGLOBIN 10.4 g/dl (14.0-18.0); LYMPH # 1.1 10*3/uL (1.3-4.4); LYMPH % 8.2 % (27.0-41.0); MEAN CORPUSCULAR HGB 22.9 pg (27.0-31.0); MEAN CORPUSCULAR HGB CONC 30.1 g/dl (33.0-37.0); MEAN PLATELET VOLUME 9.2 fl (9.6-12.3); MONO # 1.4 10*3/uL (0.1-1.0); MONO % 10.4 % (3.0-9.0); NEUT # 10.5 10*3/uL (2.3-7.9); NEUT % 78.9 % (47.0-73.0); PLATELET COUNT AUTOMATED 304 10*3/uL (130-400); RED BLOOD COUNT 4.55 10*6/uL (4.50-5.90); RED CELL DISTRI WIDTH 14.8 % (0-14.5); WHITE BLOOD COUNT 13.2 10*3/uL (4.8-10.8)
[2017-10-31 06:02] LABS: INTERNATIONAL NORM RATIO 1.1 (2.0-3.5)
[2017-10-31 08:00] VITALS: BP 125/60
[2017-10-31 12:00] VITALS: BP 126/71
[2017-10-31 16:00] VITALS: BP 140/75
[2017-10-31 20:00] VITALS: BP 145/81
[2017-10-31 22:23] LABS: BILIRUBIN 1+ (NEGATIVE); BLOOD 3+ (NEGATIVE); CLARITY CLOUDY (CLEAR); GLUCOSE NEGATIVE (NEGATIVE); KETONE TRACE (NEGATIVE); LEUKO ESTERASE 2+ (NEGATIVE); NITRITE POSITIVE (NEGATIVE); PH 6.5 (5.0-9.0); SPECIFIC GRAVITY 1.015 (1.005-1.030); UROBILINOGEN 0.2 E.U./dl (0.2-1.0)
[2017-10-31 22:25] LABS: COLOR RED (YELLOW)
[2017-10-31 22:34] LABS: BACTERIA 4+; RBC TNTC rbc/hpf (0-2)
[2017-11-01] VITALS: BP 130/84
[2017-11-01 06:47] LABS: BASO # 0.1 10*3/uL (0.0-0.1); BASO % 0.8 % (0.0-1.0); EOS # 0.4 10*3/uL (0.0-0.4); HEMATOCRIT 36.3 % (42.0-52.0); HEMOGLOBIN 10.8 g/dl (14.0-18.0); LYMPH # 1.3 10*3/uL (1.3-4.4); LYMPH % 15.3 % (27.0-41.0); MEAN CELL VOLUME 76.4 fl (80.0-94.0); MEAN CORPUSCULAR HGB 22.7 pg (27.0-31.0); MEAN CORPUSCULAR HGB CONC 29.8 g/dl (33.0-37.0); MEAN PLATELET VOLUME 9.6 fl (9.6-12.3); MONO # 0.8 10*3/uL (0.1-1.0); MONO % 9.5 % (3.0-9.0); NEUT % 68.7 % (47.0-73.0); PLATELET COUNT AUTOMATED 320 10*3/uL (130-400); RED BLOOD COUNT 4.75 10*6/uL (4.50-5.90); RED CELL DISTRI WIDTH 14.7 % (0-14.5); WHITE BLOOD COUNT 8.8 10*3/uL (4.8-10.8)
[2017-11-01 06:56] LABS: INTERNATIONAL NORM RATIO 1.1 (2.0-3.5)
[2017-11-01 07:02] LABS: CREATININE 1.78 mg/dL (0.70-1.30); POTASSIUM 3.8 mmol/L (3.5-5.1)
[2017-11-01 08:00] VITALS: BP 109/89
[2017-11-01 12:00] VITALS: BP 130/82
[2017-11-01 16:00] VITALS: BP 112/88
[2017-11-01 20:00] VITALS: BP 110/90
[2017-11-02] VITALS: BP 108/64
[2017-11-02 08:00] VITALS: BP 122/74
[2017-11-02 12:00] VITALS: BP 107/54
[2017-11-02 16:00] VITALS: BP 101/59
[2017-11-02] MEDS ORDERED: CEFTRIAXON2 GM/50 ML IV (16:18)
[2017-11-02] MEDS ORDERED: VANCO 1 GR1 GM/150 M IV (16:18)
[2017-11-02 20:00] VITALS: BP 112/64
[2017-11-03] VITALS: BP 116/59
[2017-11-03 07:00] LABS: BASO # 0.1 10*3/uL (0.0-0.1); BASO % 0.7 % (0.0-1.0); EOS # 0.5 10*3/uL (0.0-0.4); EOS % 5.4 % (1.0-4.0); HEMATOCRIT 34.5 % (42.0-52.0); HEMOGLOBIN 10.5 g/dl (14.0-18.0); LYMPH # 1.1 10*3/uL (1.3-4.4); LYMPH % 11.7 % (27.0-41.0); MEAN CELL VOLUME 76.3 fl (80.0-94.0); MEAN CORPUSCULAR HGB 23.2 pg (27.0-31.0); MEAN CORPUSCULAR HGB CONC 30.4 g/dl (33.0-37.0); MEAN PLATELET VOLUME 9.3 fl (9.6-12.3); MONO # 0.9 10*3/uL (0.1-1.0); MONO % 9.6 % (3.0-9.0); NEUT # 6.4 10*3/uL (2.3-7.9); NEUT % 71.6 % (47.0-73.0); PLATELET COUNT AUTOMATED 316 10*3/uL (130-400); RED BLOOD COUNT 4.52 10*6/uL (4.50-5.90); RED CELL DISTRI WIDTH 14.8 % (0-14.5)
[2017-11-03 07:17] LABS: CREATININE 1.77 mg/dL (0.70-1.30)
[2017-11-03 07:28] LABS: INTERNATIONAL NORM RATIO 1.1 (2.0-3.5)
[2017-11-03 08:00] VITALS: BP 127/63
[2017-11-03 12:00] VITALS: BP 135/67
== END 2017-11-03 12:40 | disposition other institution (70) | DRG 623 ==
LOC: ED 18:33 → 5E 20:07 → EDHOLD 20:07 → 5E 21:05
PROVIDERS: Internal Medicine; Physician Assistant
PROC: 0QBN0ZZ Excision of Right Metatarsal, Open Approach (ICD-10-PCS; principal; 2017-10-29)
PROC: 0JBR0ZZ Excision of Left Foot Subcutaneous Tissue and Fascia, Open Approach (ICD-10-PCS; principal; 2017-10-29)
PROC: 0LBV0ZZ Excision of Right Foot Tendon, Open Approach (ICD-10-PCS; principal; 2017-10-29)
PROC: 0QBP0ZZ Excision of Left Metatarsal, Open Approach (ICD-10-PCS; principal; 2017-10-29)
PROC: 05H633Z Insertion of Infusion Device into Left Subclavian Vein, Percutaneous Approach (ICD-10-PCS; 2017-11-01)
DX: E11.69 Type 2 diabetes mellitus with other specified complication (principal); M86.8X7 Other osteomyelitis, ankle and foot; N17.9 Acute kidney failure, unspecified; E11.40 Type 2 diabetes mellitus with diabetic neuropathy, unspecified; E11.21 Type 2 diabetes mellitus with diabetic nephropathy; E11.621 Type 2 diabetes mellitus with foot ulcer; M00.9 Pyogenic arthritis, unspecified; D49.512 Neoplasm of unspecified behavior of left kidney; B96.4 Proteus (mirabilis) (morganii) as the cause of diseases classified elsewhere; L03.116 Cellulitis of left lower limb; L03.115 Cellulitis of right lower limb; L97.519 Non-pressure chronic ulcer of other part of right foot with unspecified severity; I48.2 Chronic atrial fibrillation; M19.072 Primary osteoarthritis, left ankle and foot; R62.7 Adult failure to thrive; R31.9 Hematuria, unspecified; L97.529 Non-pressure chronic ulcer of other part of left foot with unspecified severity; I87.8 Other specified disorders of veins; I12.9 Hypertensive chronic kidney disease with stage 1 through stage 4 chronic kidney disease, or unspecified chronic kidney disease; E11.22 Type 2 diabetes mellitus with diabetic chronic kidney disease; N18.9 Chronic kidney disease, unspecified; Z79.01 Long term (current) use of anticoagulants; Z79.899 Other long term (current) drug therapy; Z79.84 Long term (current) use of oral hypoglycemic drugs; Z86.718 Personal history of other venous thrombosis and embolism

== ENCOUNTER 2017-11-22 23:10 | Inpatient (IN) | payer MEDICARE ==
[~2017-11-22] VITALS: Ht 185.4 cm; Wt 86.5 kg
--- NOTE | ~2017-11-22 | CON ---
[place], [place] REPORT OF CONSULTATION NAME: FELIBERTO MCGREGOR JR [facility] #: [id number] UNIT #: [id number] ROOM: 523 DOCTOR: LEX CANCHOLA DPM BIRTHDATE: [birth year] DOS: 11/23/2017 SUBJECTIVE: The patient was seen, is a 67-year-old male with a chief complaint of ulcerations to both feet. The patient has been followed by Dr. Albright for bilateral foot wounds. The patient had partial fifth metatarsal amputations performed due to severe infections and osteomyelitis. The patient had wound VAC placed and has had continued wound care. PAST MEDICAL HISTORY: AFib, benign prostatic hyperplasia, diabetes, gout, iron deficiency, osteomyelitis, renal mass, venous stasis, and vitamin D deficiency. PAST SURGICAL HISTORY: Foot surgery, bilateral. SOCIAL HISTORY: He denies alcohol, smoking, or illicit drug use. FAMILY HISTORY: Mother from acute meningitis, age 58. Father , age 60+. ALLERGIES: Denies. PHYSICAL EXAMINATION: EXTREMITIES: Lower extremity examination, pedal pulses diminished bilateral. There is ulceration lateral, fifth right MPJ, is full thickness. There are no signs of deep sinus tract, no signs of purulent drainage or foul odor, much improved since my previous evaluation of the wound. No signs of fluctuance or abscess. There are also ulcerations to the dorsal left foot and lateral fifth left MPJ, which are full thickness with no signs of infection or fluctuance. No signs of purulent drainage or cellulitis. ASSESSMENT: Diabetic ulcerations fifth MPJ bilateral, dorsal left foot. PLAN: Evaluation and management. Discussed the case with Dr. Albright who has been seeing the patient in the halfway. We will discontinue wound VAC at this time. Ordered Aquacel hydrogel with gauze dressing daily and we will see the patient later in the week for followup, either or Wednesday as the patient is very stable and doing very well at this time with the local wound care. LEX CANCHOLA DPM CM:CONSTR:REPORT OF CONSULTATION 1203 11/24/17 0050 interface
[~2017-11-22 23:10] MED LIST changes: +CEFTRIAXON2 GM/50 ML IV; +COUMADIN5 M2 PO; +EC NAPROSYN,NA500 MG PO; +VANCO 1 GR1 GM/150 M IV
[2017-11-22 23:28] VITALS: BP 131/63
[2017-11-22 23:55] LABS: BASO # 0.1 10*3/uL (0.0-0.1); BASO % 0.5 % (0.0-1.0); EOS # 0.4 10*3/uL (0.0-0.4); EOS % 2.5 % (1.0-4.0); HEMOGLOBIN 11.1 g/dl (14.0-18.0); LYMPH # 1.3 10*3/uL (1.3-4.4); MEAN CELL VOLUME 71.3 fl (80.0-94.0); MEAN CORPUSCULAR HGB 22.6 pg (27.0-31.0); MEAN CORPUSCULAR HGB CONC 31.7 g/dl (33.0-37.0); MEAN PLATELET VOLUME 9.9 fl (9.6-12.3); MONO % 6.6 % (3.0-9.0); NEUT # 11.9 10*3/uL (2.3-7.9); NEUT % 80.4 % (47.0-73.0); PLATELET COUNT AUTOMATED 500 10*3/uL (130-400); RED BLOOD COUNT 4.91 10*6/uL (4.50-5.90); WHITE BLOOD COUNT 14.8 10*3/uL (4.8-10.8)
[2017-11-23] VITALS (7 sets, daily range): BP systolic 104–123; BP diastolic 59–74
[2017-11-23 00:04] LABS: INTERNATIONAL NORM RATIO 2.1 (2.0-3.5)
[2017-11-23 00:18] LABS: ALBUMIN 3.1 gm/dl (3.1-4.5); ALKALINE PHOSPHATASE 140 U/L (45-117); BUN 49 mg/dl (7-24); CHLORIDE 92 mmol/L (98-107); CREATININE 2.04 mg/dL (0.70-1.30); LIPASE 273 U/L (73-393); POTASSIUM 3.7 mmol/L (3.5-5.1); SGOT/AST 16 IU/L (3-35); SGPT/ALT 15 U/L (12-78); SODIUM 128 mmol/L (136-145); TOTAL PROTEIN 8.3 gm/dL (6.4-8.2); TROPONIN I < 0.015 ng/ml (<0.045)
[2017-11-23 00:23] LABS: BILIRUBIN NEGATIVE (NEGATIVE); BLOOD 3+ (NEGATIVE); CLARITY CLEAR (CLEAR); COLOR YELLOW (YELLOW); GLUCOSE NEGATIVE (NEGATIVE); KETONE NEGATIVE (NEGATIVE); LEUKO ESTERASE TRACE (NEGATIVE); NITRITE NEGATIVE (NEGATIVE); PH 5.5 (5.0-9.0); UROBILINOGEN 0.2 E.U./dl (0.2-1.0)
[2017-11-23 00:38] LABS: BACTERIA TRACE
[2017-11-23] MEDS ORDERED: BUMETANIDE2 MG PO (03:18)
[2017-11-23] MEDS ORDERED: COUMADIN2 M1 PO (03:28)
[2017-11-23] MEDS ORDERED: Coumadin5 MG PO (03:28)
[2017-11-23] MEDS ORDERED: DULCOLAX10 M1 R (03:32)
[2017-11-23] MEDS ORDERED: MOM30 M1 PO (03:35)
[2017-11-23] MEDS ORDERED: TRAMADOL HCL50 MG PO (03:37)
[2017-11-23] MEDS ORDERED: VANCOMYCIN HCL750 MG IV (03:38)
[2017-11-23] MEDS ORDERED: CEFTRIAXONE2 G1 IV (03:39)
[2017-11-23 06:09] LABS: BASO # 0.1 10*3/uL (0.0-0.1); BASO % 0.5 % (0.0-1.0); EOS # 0.1 10*3/uL (0.0-0.4); EOS % 0.9 % (1.0-4.0); HEMATOCRIT 33.2 % (42.0-52.0); HEMOGLOBIN 10.4 g/dl (14.0-18.0); LYMPH # 1.2 10*3/uL (1.3-4.4); LYMPH % 9.8 % (27.0-41.0); MEAN CELL VOLUME 72.3 fl (80.0-94.0); MEAN CORPUSCULAR HGB 22.7 pg (27.0-31.0); MEAN CORPUSCULAR HGB CONC 31.3 g/dl (33.0-37.0); MONO # 0.9 10*3/uL (0.1-1.0); MONO % 7.1 % (3.0-9.0); NEUT % 80.9 % (47.0-73.0); PLATELET COUNT AUTOMATED 392 10*3/uL (130-400); RED BLOOD COUNT 4.59 10*6/uL (4.50-5.90); RED CELL DISTRI WIDTH 14.8 % (0-14.5); WHITE BLOOD COUNT 12.3 10*3/uL (4.8-10.8)
[2017-11-23 06:40] LABS: CREATININE 1.83 mg/dL (0.70-1.30); FREE T4 1.41 ng/dl (0.76-1.46); PHOSPHOROUS 2.3 mg/dL (2.5-4.9)
[2017-11-23 06:46] LABS: THYROID STIM HORMONE (HS) 0.953 uIU/ml (0.358-4.75)
[2017-11-23 07:55] LABS: VITAMIN D, 25-HYDROXY 102.4 ng/mL (30-100)
[2017-11-24] VITALS: BP 110/69
[2017-11-24 06:34] LABS: BASO # 0.1 10*3/uL (0.0-0.1); BASO % 0.6 % (0.0-1.0); EOS # 0.4 10*3/uL (0.0-0.4); EOS % 4.2 % (1.0-4.0); HEMATOCRIT 32.4 % (42.0-52.0); HEMOGLOBIN 9.7 g/dl (14.0-18.0); LYMPH % 10.1 % (27.0-41.0); MEAN CELL VOLUME 74.7 fl (80.0-94.0); MEAN CORPUSCULAR HGB 22.4 pg (27.0-31.0); MEAN CORPUSCULAR HGB CONC 29.9 g/dl (33.0-37.0); MEAN PLATELET VOLUME 10.1 fl (9.6-12.3); MONO # 0.8 10*3/uL (0.1-1.0); MONO % 8.1 % (3.0-9.0); NEUT # 7.4 10*3/uL (2.3-7.9); NEUT % 76.5 % (47.0-73.0); PLATELET COUNT AUTOMATED 332 10*3/uL (130-400); RED BLOOD COUNT 4.34 10*6/uL (4.50-5.90); RED CELL DISTRI WIDTH 14.9 % (0-14.5); WHITE BLOOD COUNT 9.6 10*3/uL (4.8-10.8)
[2017-11-24 07:05] LABS: INTERNATIONAL NORM RATIO 2.5 (2.0-3.5)
[2017-11-24 07:06] LABS: ALBUMIN 2.9 gm/dl (3.1-4.5); CREATININE 1.5 mg/dL (0.70-1.30); PHOSPHOROUS 2.7 mg/dL (2.5-4.9); POTASSIUM 3.6 mmol/L (3.5-5.1)
[2017-11-24 07:16] LABS: DIGOXIN 0.74 ng/ml (0.8-2.0)
[2017-11-24 08:00] VITALS: BP 112/63
[2017-11-24 12:00] VITALS: BP 108/68
[2017-11-24 16:00] VITALS: BP 130/63
[2017-11-24 20:14] VITALS: BP 117/63
[2017-11-25] VITALS: BP 126/72
[2017-11-25 06:49] LABS: BASO # 0.1 10*3/uL (0.0-0.1); BASO % 0.6 % (0.0-1.0); EOS # 0.3 10*3/uL (0.0-0.4); EOS % 3.4 % (1.0-4.0); HEMATOCRIT 30.7 % (42.0-52.0); HEMOGLOBIN 9.2 g/dl (14.0-18.0); LYMPH # 0.8 10*3/uL (1.3-4.4); LYMPH % 9.6 % (27.0-41.0); MEAN CELL VOLUME 75.2 fl (80.0-94.0); MEAN CORPUSCULAR HGB 22.5 pg (27.0-31.0); MEAN PLATELET VOLUME 9.5 fl (9.6-12.3); MONO # 0.8 10*3/uL (0.1-1.0); NEUT # 6.7 10*3/uL (2.3-7.9); NEUT % 76.8 % (47.0-73.0); PLATELET COUNT AUTOMATED 296 10*3/uL (130-400); RED BLOOD COUNT 4.08 10*6/uL (4.50-5.90); RED CELL DISTRI WIDTH 15.1 % (0-14.5); WHITE BLOOD COUNT 8.7 10*3/uL (4.8-10.8)
[2017-11-25 07:15] LABS: CHLORIDE 101 mmol/L (98-107); CREATININE 1.39 mg/dL (0.70-1.30); PHOSPHOROUS 2.4 mg/dL (2.5-4.9); POTASSIUM 3.6 mmol/L (3.5-5.1); SODIUM 136 mmol/L (136-145)
[2017-11-25 07:17] LABS: INTERNATIONAL NORM RATIO 2.9 (2.0-3.5)
[2017-11-25 07:18] LABS: BUN 21 mg/dl (7-24)
[2017-11-25 08:00] VITALS: BP 134/72
[2017-11-25] MEDS ORDERED: TYLENOL325 M2 PO (10:25)
[2017-11-25] MEDS ORDERED: VANCO 1.51.5 GM/250 IV (10:25)
== END 2017-11-25 14:19 | disposition other institution (70) | DRG 871 ==
LOC: ED 23:10 → EDHOLD 11-23 01:42 → 5E 11-23 01:42
PROVIDERS: Emergency Medicine Emergency Medical Services; Internal Medicine
DX: A41.9 Sepsis, unspecified organism (principal); G93.41 Metabolic encephalopathy; N17.0 Acute kidney failure with tubular necrosis; E44.0 Moderate protein-calorie malnutrition; I48.0 Paroxysmal atrial fibrillation; E11.59 Type 2 diabetes mellitus with other circulatory complications; E11.40 Type 2 diabetes mellitus with diabetic neuropathy, unspecified; E11.22 Type 2 diabetes mellitus with diabetic chronic kidney disease; M86.271 Subacute osteomyelitis, right ankle and foot; E87.1 Hypo-osmolality and hyponatremia; E11.621 Type 2 diabetes mellitus with foot ulcer; R65.20 Severe sepsis without septic shock; E83.39 Other disorders of phosphorus metabolism; E87.8 Other disorders of electrolyte and fluid balance, not elsewhere classified; D50.9 Iron deficiency anemia, unspecified; D47.3 Essential (hemorrhagic) thrombocythemia; N18.3 Chronic kidney disease, stage 3 (moderate); I87.8 Other specified disorders of veins; N28.89 Other specified disorders of kidney and ureter; E87.6 Hypokalemia; N40.0 Benign prostatic hyperplasia without lower urinary tract symptoms; M10.9 Gout, unspecified; L97.529 Non-pressure chronic ulcer of other part of left foot with unspecified severity; L97.519 Non-pressure chronic ulcer of other part of right foot with unspecified severity; Z79.01 Long term (current) use of anticoagulants; Z79.899 Other long term (current) drug therapy; Z86.718 Personal history of other venous thrombosis and embolism; Z87.440 Personal history of urinary (tract) infections; Z89.422 Acquired absence of other left toe(s); Z89.421 Acquired absence of other right toe(s); Z84.89 Family history of other specified conditions; Z68.24 Body mass index [BMI] 24.0-24.9, adult

== ENCOUNTER → 2017-12-24 | Outpatient (CLI) | payer MEDICARE ==
[~2017-12-24] MED LIST changes: +CEFTRIAXONE2 G1 IV; +COUMADIN2 M1 PO; +DULCOLAX10 M1 R; +MOM30 M1 PO; +TRAMADOL HCL50 MG PO; +TYLENOL325 M2 PO; +VANCO 1.51.5 GM/250 IV; +VANCOMYCIN HCL750 MG IV
== END | disposition home or self-care (01) ==
LOC: NM 09:32
DX: R91.1 Solitary pulmonary nodule (principal); C64.9 Malignant neoplasm of unspecified kidney, except renal pelvis; I48.91 Unspecified atrial fibrillation; M86.8X7 Other osteomyelitis, ankle and foot; R42 Dizziness and giddiness; Z98.61 Coronary angioplasty status

== ENCOUNTER → 2018-01-25 | Outpatient (CLI) | payer MEDICARE | END | disposition home or self-care (01) | LOC: CARD 07:00 | DX: Z01.818 Encounter for other preprocedural examination (principal); R94.31 Abnormal electrocardiogram [ECG] [EKG]; R53.81 Other malaise ==

== ENCOUNTER → 2018-04-15 | Outpatient (CLI) | payer MEDICARE | END | disposition home or self-care (01) | LOC: CT 04-07 11:00 | DX: C64.9 Malignant neoplasm of unspecified kidney, except renal pelvis (principal); K80.20 Calculus of gallbladder without cholecystitis without obstruction; K40.90 Unilateral inguinal hernia, without obstruction or gangrene, not specified as recurrent ==

== ENCOUNTER → 2018-06-18 | Outpatient (CLI) | payer MEDICARE ==
[2018-06-18 12:54] LABS: INTERNATIONAL NORM RATIO 1.2 (2.0-3.5)
== END | disposition home or self-care (01) ==
LOC: LAB 11:51
PROVIDERS: Family Medicine
DX: I48.91 Unspecified atrial fibrillation (principal)

== ENCOUNTER → 2018-08-25 | Outpatient (CLI) | payer MEDICARE ==
[~2018-08-25] MED LIST changes: +ASPIRIN CHEWABL81 MG PO; +FEROSUL325 MG PO; +METOPROLOL SUCC25 M2 PO; +VANCOMYCIN1 GM/2501 IV; +VIRT-PHOS 250250 MG PO; +WARFARIN SODIUM3 MG PO
== END | disposition home or self-care (01) ==
LOC: US 13:15
DX: C64.2 Malignant neoplasm of left kidney, except renal pelvis (principal); N28.89 Other specified disorders of kidney and ureter; Z90.5 Acquired absence of kidney

== ENCOUNTER → 2018-11-14 | Outpatient (CLI) | payer MEDICARE ==
[~2018-11-14] MED LIST changes: +HUMALOG100 UNIT/1 SQ; +VANCOMYCIN1 GM/2002 IV
== END | disposition home or self-care (01) ==
LOC: WOUNDCARE 11:01
DX: E11.621 Type 2 diabetes mellitus with foot ulcer (principal); L89.892 Pressure ulcer of other site, stage 2; L97.522 Non-pressure chronic ulcer of other part of left foot with fat layer exposed; L97.511 Non-pressure chronic ulcer of other part of right foot limited to breakdown of skin; L97.421 Non-pressure chronic ulcer of left heel and midfoot limited to breakdown of skin; I87.313 Chronic venous hypertension (idiopathic) with ulcer of bilateral lower extremity; L84 Corns and callosities; I48.91 Unspecified atrial fibrillation; I25.10 Atherosclerotic heart disease of native coronary artery without angina pectoris; E11.69 Type 2 diabetes mellitus with other specified complication; M86.8X7 Other osteomyelitis, ankle and foot; E11.22 Type 2 diabetes mellitus with diabetic chronic kidney disease; I13.0 Hypertensive heart and chronic kidney disease with heart failure and stage 1 through stage 4 chronic kidney disease, or unspecified chronic kidney disease; N18.9 Chronic kidney disease, unspecified; I50.9 Heart failure, unspecified; Z86.718 Personal history of other venous thrombosis and embolism

== ENCOUNTER → 2019-01-17 | Outpatient (CLI) | payer MEDICARE ==
[2019-01-17 08:15] VITALS: BP 111/57
[2019-01-17 08:50] VITALS: BP 111/59
[2019-01-17 09:15] VITALS: BP 108/64
[2019-01-17 09:30] VITALS: BP 116/71
[2019-01-17 10:00] VITALS: BP 122/77
[2019-01-17 10:46] VITALS: BP 115/63
== END | disposition home or self-care (01) ==
LOC: TRNFUSION 01:57
DX: E61.1 Iron deficiency (principal)

== ENCOUNTER 2019-01-19 10:26 | Inpatient (IN) | payer MEDICARE ==
[2019-01-19] VITALS (10 sets, daily range): BP systolic 120–152; BP diastolic 57–83
[~2019-01-19] VITALS: Ht 185.4 cm; Wt 91.8 kg
--- NOTE | ~2019-01-19 | EKG ---
[place], [place] ELECTROCARDIOGRAM REPORT NAME: FELIBERTO MCGREGOR JR UNIT #: [id number] ROOM: 529 DOCTOR: OKSANA DRAFT REPORT BIRTHDATE: [birth year] [facility] Test Date: 2019-01-19 Test Time: 10:45:09 Pat Name: FELIBERTO MCGREGOR Department: Room: 529 Gender: M Faith Doctor: : 1950 Requested By: ANTHONY BOJORQUEZ Order Number: [id number] Reading MD: Andrew Clifford MD Measurements Intervals [place] Rate: 111 P: IA: QRS: -37 QRSD: 96 T: -69 QT: 334 QTc: 454 Interpretive Statements Atrial fibrillation Multiple ventricular premature complexes Possible inferior infarct, old Electronically Signed On 01-20-2019 4:58:57 PDT by Andrew Clifford MD CM:EKGRPT:ELECTROCARDIOGRAM REPORT [id number] ANTHONY BOJORQUEZ MD EPIPHANY DRAFT REPORT ANTHONY BOJORQUEZ MD
--- NOTE | ~2019-01-19 | O ---
[place], [place] OPERATIVE NOTE NAME: FELIBERTO MCGREGOR JR UNIT #: [id number] ROOM: 529 DOCTOR: FERNANDO JEAN MD BIRTHDATE: [birth year] DOS: 01/20/2019 GASTROENDOSCOPIC REPORT INDICATIONS: The patient has presented with a chief complaint of anemia, drop in H and H, has been on Coumadin, prolonged INR of 5.9, status post correction. PROCEDURE: Today's procedure part of investigation is colonoscopy. PREMEDICATION: Propofol. SCOPE: Olympus forward-viewing colonoscope 10L video. REPORT: After putting the patient in left lateral position and application of lubricant to the scope, the scope was introduced. Thereafter, under direct visualization, advanced through the length of colon to the base of cecum. Some angulation of hepatic flexure was noticed. This is rather severe. However, overcame diverticulosis of left colon seen. The patient extubated, tolerated the procedure well. IMPRESSION: Diverticulosis, otherwise angulation of hepatic flexure. Otherwise, no acute pathology. PLAN: We are going to feed the patient in regular diet and follow up on H and H and transfusion and re-anticoagulation in future for Wednesday and clinical reassessment. FERNANDO JEAN MD CM:OPRECORD:OPERATIVE NOTE [id number] FERNANDO JEAN MD 01/21/19 0601 interface
--- NOTE | ~2019-01-19 | O ---
[place], [place] OPERATIVE NOTE NAME: FELIBERTO MCGREGOR JR UNIT #: [id number] ROOM: 529 DOCTOR: FERNANDO JEAN MD BIRTHDATE: [birth year] DOS: 01/20/2019 PROCEDURE: Upper and lower endoscopy. INDICATIONS: This is a 68-year-old patient who has presented with chief complaint of drop in H and H, undergoing investigation after transfusion and stabilization. His initial H and H was 5.9 and 19. His INR was 5.9, corrected. His comprehensive metabolic panel. BUN and creatinine 48 and 2.8. Electrolytes were balanced. C-reactive elevation was noticed. His present CBC differential, H and H of 8 and 25 post-transfusion. Comprehensive metabolic; BUN and creatinine 35 and 1.6, all corrected. Potassium corrected. PROCEDURE: Today's procedure part of investigation is panendoscopy and colonoscopy. PREMEDICATION: Propofol. SCOPE: Olympus forward-viewing gastroscope Q10 video. REPORT: After putting the patient in left lateral position and application of lubricant to the scope, the scope was introduced. Thereafter, under direct visualization, advanced through the length of esophagus without difficulty. Esophagus, cervical, thoracic distal within normal limits. Small hiatal hernia was noted. Gastric pouch was entered. Gastritis was seen. Antral biopsy obtained. The patient extubated, tolerated the procedure well. IMPRESSION: Gastritis, status post biopsy, small hiatal hernia. PLAN AND RECOMMENDATIONS: We will proceed with colonoscopy. FERNANDO JEAN MD CM:OPRECORD:OPERATIVE NOTE 1922 0554 FERNANDO JEAN MD 01/21/19 0554 interface
--- NOTE | ~2019-01-19 | CON ---
[place], [place] REPORT OF CONSULTATION NAME: FELIBERTO MCGREGOR JR UNIT #: [id number] ROOM: 529 DOCTOR: FERNANDO JEAN MD BIRTHDATE: [birth year] DOS: 01/20/2019 GASTROENDOSCOPIC REPORT HISTORY OF PRESENT ILLNESS: This is a 68-year-old patient who presented to Emergency Room with drop in H and H to hemoglobin of 5 and 9 from recent investigations, status post multi-transfusions and stabilization. I have been asked for assessment of the patient in this regard. PAST MEDICAL HISTORY: Associate with renal insufficiency, BPH, atrial fibrillation, leg abscess, gouty arthritis, cellulitis of left foot. PAST SURGICAL HISTORY: Foot debridement. SOCIAL HISTORY: Nonsmoker, nonalcohol consumer. FAMILY HISTORY: Noncontributory. HOME MEDICATIONS: Reviewed. He has been on fish oil, aspirin and Coumadin. ALLERGIES: No known medications. FAMILY HISTORY: Noncontributory. REVIEW OF SYSTEMS: HEENT: Denies double vision, blurred vision. RESPIRATORY: Denies acute shortness of breath. CARDIOVASCULAR: Denies acute chest pain. DIGESTIVE SYSTEM: Drop in H and H. PHYSICAL EXAMINATION: VITAL SIGNS: Stable. HEENT: Within normal limit. NECK: Supple, no thyromegaly, no cervical lymphadenopathy. CHEST: Symmetric anatomy, equal expansion. HEART: Irregular irregularity. ABDOMEN: Soft. No hepato-organomegaly. Bowel sounds present. EXTREMITIES: Left foot casting and podiatric management. NEUROLOGIC: Alert, oriented to time, place, person. IMPRESSION: Drop in H and H post-transfusion concern about the source of bleeding. PLAN AND DISCUSSION: We are going to proceed with EGD and colonoscopy. [place], [place] REPORT OF CONSULTATION NAME: FELIBERTO MCGREGOR JR UNIT #: [id number] ROOM: 529 DOCTOR: FERNANDO JEAN MD BIRTHDATE: [birth year] FERNANDO JEAN MD CM:CONSTR:REPORT OF CONSULTATION [id number] MISTY JOVEL MIS.LLR
[~2019-01-19 10:26] MED LIST changes: -HUMALOG100 UNIT/1 SQ; -VANCOMYCIN1 GM/2002 IV
[2019-01-19 11:06] LABS: HEMATOCRIT 23.8 % (42.0-52.0); HEMOGLOBIN 7.3 g/dl (14.0-18.0)
--- NOTE | 2019-01-19 11:20 | NUR ---
A 68, admitted to , under the services of JOHNNY Laboy DO with a diagnosis of ANEMIA. Chief complaint is HGB 6.7 AT [facility]. Patient arrived via ambulance from ER. Monitor applied. Initial assessment completed. Vital signs taken and recorded. JOHNNY LABOY DO notified of admission to the unit. Orders received. See assessment for past medical history, medications and allergies. Patient and/or family oriented to unit. [facility] visitation policy reviewed. Clothing/patient valuable form completed. OSMANI PETTY
--- NOTE | 2019-01-19 11:34 | NUR ---
AND MEDICAL STUDENT IN TO SEE PT. PERFORMING FECAL OCCULT DUE TO ANEMIA. PT CONSENTED TO TEST.
--- NOTE | 2019-01-19 11:37 | NUR ---
+ FECAL OCCULT TEST PER . PT TOLERATED WELL.
--- NOTE | 2019-01-19 12:06 | NUR ---
CALLED, PT TO STILL RECIEVE 1 UNIT PRBC TRANSFUSION FOR HGB 7.3 TODAY. CLARE BIRD NOTIFIED.
--- NOTE | 2019-01-19 12:08 | NUR ---
WOUND DRESSING TO LEFT FOOT AND JUST BELOW KNEE NOTED ON ADMISSION TO ROOM. DRESSING NOT REMOVED IN ED FOR PICTURES. PT STATES HE FOLLOWS WITH FOR CARE OF A LEFT FOOT WOUND. PT STATES DRESSING WAS PLACED ON YESTERDAY, 01/18 AND IS NOT TO BE REMOVED. PT REFUSING TO REMOVE DRESSING TO LEFT FOOT AT THIS TIME. PICS/MEASUREMENTS OF LEFT FOOT WOUND UNABLE TO BE OBTAINED AT THIS TIME.
--- NOTE | 2019-01-19 12:21 | NUR ---
Verbal consent for blood transfusion was obtained by candy Castro and verified with two RNs. See consent in file.
--- NOTE | 2019-01-19 12:35 | NUR ---
Spoke with Dr. Masterson regarding use of patients PICC line. See new orders.
--- NOTE | 2019-01-19 13:44 | NUR ---
Spoke to Dr. Cabral regarding consult for (+) hemmocult. Physician reviewed patients history, labs, and medications. See new orders.
--- NOTE | 2019-01-19 14:08 | NUR ---
Spoke with Dr. Wood's resident regarding consult for follow up care on left foot ulcer.
--- NOTE | 2019-01-19 14:11 | NUR ---
Left a message at [facility] nurses station to call back pilar I need an updated med list. Awaiting response.
[2019-01-19 14:28] LABS: BILIRUBIN NEGATIVE (NEGATIVE); BLOOD NEGATIVE (NEGATIVE); CLARITY CLEAR (CLEAR); COLOR YELLOW (YELLOW); GLUCOSE NEGATIVE (NEGATIVE); KETONE NEGATIVE (NEGATIVE); LEUKO ESTERASE NEGATIVE (NEGATIVE); NITRITE NEGATIVE (NEGATIVE); UROBILINOGEN 0.2 E.U./dl (0.2-1.0)
--- NOTE | 2019-01-19 14:31 | NUR ---
Nursing screen receieved this date and patient chart has jennifer reviewed. Thank you. Elle Bernardo, OTR/L
[2019-01-19 14:46] LABS: BACTERIA TRACE; EPITHELIAL CELLS 0-2; WBC 0-2 wbc/hpf (0-5)
--- NOTE | 2019-01-19 17:50 | NUR ---
Notified Jude (ERVIN) of EGD Anthony ordered for tomorrow.
[2019-01-19 18:58] LABS: HEMATOCRIT 25.4 % (42.0-52.0)
[2019-01-19] MEDS ORDERED: HUMALOG100 UNIT/1 SQ (19:04)
[2019-01-19] MEDS ORDERED: VANCOMYCIN1 GM/2002 IV (19:09)
[2019-01-19] MEDS ORDERED: VIRT-PHOS 250250 MG PO (20:14)
--- NOTE | 2019-01-19 20:15 | NUR ---
MED REC UPDATED VIA LIST PROVIDED BY [email or web address]. HARD COPY ON CHART.
[2019-01-20] VITALS (8 sets, daily range): BP systolic 102–133; BP diastolic 44–77
[2019-01-20 06:01] LABS: BASO # 0.1 10*3/uL (0.0-0.1); BASO % 0.6 % (0.0-1.0); EOS # 0.4 10*3/uL (0.0-0.4); HEMATOCRIT 25.4 % (42.0-52.0); LYMPH % 12.2 % (27.0-41.0); MEAN CELL VOLUME 81.4 fl (80.0-94.0); MEAN CORPUSCULAR HGB 25.6 pg (27.0-31.0); MEAN CORPUSCULAR HGB CONC 31.5 g/dl (33.0-37.0); MEAN PLATELET VOLUME 9.3 fl (9.6-12.3); MONO # 0.8 10*3/uL (0.1-1.0); MONO % 10.2 % (3.0-9.0); NEUT # 5.5 10*3/uL (2.3-7.9); NEUT % 69.9 % (47.0-73.0); PLATELET COUNT AUTOMATED 341 10*3/uL (130-400); RED BLOOD COUNT 3.12 10*6/uL (4.50-5.90); RED CELL DISTRI WIDTH 15.1 % (0-14.5); WHITE BLOOD COUNT 7.9 10*3/uL (4.8-10.8)
[2019-01-20 06:20] LABS: ALBUMIN 2.7 gm/dl (3.1-4.5); CREATININE 1.69 mg/dL (0.70-1.30); POTASSIUM 3.4 mmol/L (3.5-5.1); TOTAL PROTEIN 6.8 gm/dL (6.4-8.2)
[2019-01-20 06:54] LABS: INTERNATIONAL NORM RATIO 2.2 (2.0-3.5)
--- NOTE | 2019-01-20 08:30 | NUR ---
PHYSICAL THERAPY Nursing screen received and chart reviewed. Please refer PT evaluation if functional mobility declines. Thank you. Leila Bosch,PT,DPT.
--- NOTE | 2019-01-20 08:38 | NUR ---
PATIENT STATES THAT HE WOULD RATHER HAVE PODIATRY REMOVE DRESSING TO LLE. NURSE CARING FOR PATIENT MARGE SPARKS MADE AWARE PHOTOS AND MEASUREMENTS WILL NEED TO BE COMPLETED WHEN PODIATRY COMES TO SEE PATIENT TODAY.
--- NOTE | 2019-01-20 10:25 | NUR ---
Tap water enema given till clear. Patient tolerated well.
--- NOTE | 2019-01-20 12:05 | NUR ---
PT IS CURRENTLY AT [facility] AND WANTS TO RETURN TO FINISH HIS REHAB WHEN DISCHARGED. STATES I HAVE TO GET BACK HOME TO MY CAT, SO I NEED TO GO BACK AND GET BETTER SOON. WILL CONTINUE TO FOLLOW.
--- NOTE | 2019-01-20 19:20 | NUR ---
NEW ORDERS RECIEVED FROM DR. JEAN.
--- NOTE | 2019-01-20 19:45 | NUR ---
PATIENT ON FLOOR FROM SURGERY. ASSESSMENT IS COMPLETE WITH NO C/O OR S/S OF DISTRESS NOTED AT THIS TIME. BED IS LOW, LOCKED, ALARMED, AND CALL LIGHT IS WITHIN REACH. PICC IN LEFT ARM PATIENT AND + FOR BLOOD RETURN 0.9NS INFUSING PER ORDER. WILL CONTINUE TO MONITOR SEE SHIFT ASSESSMENT.
--- NOTE | 2019-01-20 23:56 | NUR ---
24 HR. CHART CHECK COMPLETE.
[2019-01-21] VITALS: BP 129/52
--- NOTE | 2019-01-21 03:10 | NUR ---
PATIENT IS SLEEPING WITH EASY AND REGULAR RESPERS ON ROOM AIR, CALL LIGHT IS WITHIN REACH.
[2019-01-21 06:54] LABS: ALBUMIN 2.6 gm/dl (3.1-4.5); CREATININE 1.5 mg/dL (0.70-1.30); POTASSIUM 3.5 mmol/L (3.5-5.1); TOTAL PROTEIN 6.5 gm/dL (6.4-8.2)
[2019-01-21 07:14] LABS: INTERNATIONAL NORM RATIO 2.2 (2.0-3.5)
[2019-01-21 07:18] LABS: BASO % 0.5 % (0.0-1.0); EOS # 0.3 10*3/uL (0.0-0.4); EOS % 5.2 % (1.0-4.0); HEMOGLOBIN 7.7 g/dl (14.0-18.0); LYMPH % 16.2 % (27.0-41.0); MEAN CELL VOLUME 83.6 fl (80.0-94.0); MEAN CORPUSCULAR HGB 25.8 pg (27.0-31.0); MEAN CORPUSCULAR HGB CONC 30.8 g/dl (33.0-37.0); MEAN PLATELET VOLUME 9.4 fl (9.6-12.3); MONO # 0.6 10*3/uL (0.1-1.0); MONO % 9.2 % (3.0-9.0); NEUT % 66.1 % (47.0-73.0); PLATELET COUNT AUTOMATED 334 10*3/uL (130-400); RED BLOOD COUNT 2.99 10*6/uL (4.50-5.90); RED CELL DISTRI WIDTH 14.9 % (0-14.5)
[2019-01-21 12:00] VITALS: BP 120/72
--- NOTE | 2019-01-21 14:00 | NUR ---
dr hilton in to see patient and discuss plan of care and discharge.
[2019-01-21] MEDS ORDERED: COUMADIN10 M1 PO (15:08)
[2019-01-21] MEDS ORDERED: ASPIRIN CHEWABL81 MG PO (15:08)
[2019-01-21 16:00] VITALS: BP 137/71
--- NOTE | 2019-01-21 16:47 | NUR ---
nurse to nurse report given to shawn rn at [facility].
--- NOTE | 2019-01-21 18:43 | NUR ---
PATIENT TAKEN OFF THE FLOOR VIA AMBULANCE SERVICE.
== END 2019-01-21 18:43 | disposition other institution (70) | DRG 811 ==
LOC: ED 10:26 → 5E 10:39 → EDHOLD 10:39 → 5E 10:56
PROVIDERS: Emergency Medicine; Internal Medicine; ADMIT Internal Medicine
PROC: 30233N1 Transfusion of Nonautologous Red Blood Cells into Peripheral Vein, Percutaneous Approach (ICD-10-PCS; principal; 2019-01-19)
PROC: 0DJD8ZZ Inspection of Lower Intestinal Tract, Via Natural or Artificial Opening Endoscopic (ICD-10-PCS; 2019-01-20)
PROC: 0DB68ZX Excision of Stomach, Via Natural or Artificial Opening Endoscopic, Diagnostic (ICD-10-PCS; 2019-01-20)
DX: D62 Acute posthemorrhagic anemia (principal); E43 Unspecified severe protein-calorie malnutrition; R78.81 Bacteremia; N40.0 Benign prostatic hyperplasia without lower urinary tract symptoms; N18.3 Chronic kidney disease, stage 3 (moderate); E11.22 Type 2 diabetes mellitus with diabetic chronic kidney disease; M10.9 Gout, unspecified; R00.0 Tachycardia, unspecified; L97.529 Non-pressure chronic ulcer of other part of left foot with unspecified severity; I48.2 Chronic atrial fibrillation; E55.9 Vitamin D deficiency, unspecified; K57.30 Diverticulosis of large intestine without perforation or abscess without bleeding; K29.70 Gastritis, unspecified, without bleeding; K44.9 Diaphragmatic hernia without obstruction or gangrene; I49.3 Ventricular premature depolarization; M25.462 Effusion, left knee; Z79.01 Long term (current) use of anticoagulants; Z79.899 Other long term (current) drug therapy; Z79.82 Long term (current) use of aspirin; Z85.528 Personal history of other malignant neoplasm of kidney; Z90.5 Acquired absence of kidney; Z82.49 Family history of ischemic heart disease and other diseases of the circulatory system; Z83.3 Family history of diabetes mellitus; Z84.89 Family history of other specified conditions; E11.621 Type 2 diabetes mellitus with foot ulcer

== ENCOUNTER 2019-05-17 18:54 | Emergency (ER) | payer MEDICARE ==
[~2019-05-17] VITALS: Ht 185.4 cm; Wt 99.8 kg
[~2019-05-17 18:54] MED LIST changes: +HUMALOG100 UNIT/1 SQ; +VANCOMYCIN1 GM/2002 IV
[2019-05-17 19:37] LABS: BASO # 0.1 10*3/uL (0.0-0.1); BASO % 1.2 % (0.0-1.0); EOS # 0.4 10*3/uL (0.0-0.4); EOS % 6.3 % (1.0-4.0); HEMATOCRIT 38.2 % (42.0-52.0); HEMOGLOBIN 12.6 g/dl (14.0-18.0); LYMPH # 1.1 10*3/uL (1.3-4.4); LYMPH % 17.5 % (27.0-41.0); MEAN CELL VOLUME 80.6 fl (80.0-94.0); MEAN CORPUSCULAR HGB 26.6 pg (27.0-31.0); MEAN PLATELET VOLUME 9.9 fl (9.6-12.3); MONO # 0.6 10*3/uL (0.1-1.0); MONO % 9.8 % (3.0-9.0); NEUT # 3.9 10*3/uL (2.3-7.9); NEUT % 64.7 % (47.0-73.0); PLATELET COUNT AUTOMATED 174 10*3/uL (130-400); RED BLOOD COUNT 4.74 10*6/uL (4.50-5.90); RED CELL DISTRI WIDTH 14.2 % (0-14.5)
[2019-05-17 19:51] LABS: ALBUMIN 3.7 gm/dl (3.1-4.5); CREATININE 2.28 mg/dL (0.70-1.30); TOTAL PROTEIN 7.5 gm/dL (6.4-8.2)
[2019-05-17 20:27] LABS: BILIRUBIN NEGATIVE (NEGATIVE); BLOOD NEGATIVE (NEGATIVE); CLARITY SL CLOUDY (CLEAR); COLOR YELLOW (YELLOW); GLUCOSE NEGATIVE (NEGATIVE); KETONE NEGATIVE (NEGATIVE); LEUKO ESTERASE NEGATIVE (NEGATIVE); NITRITE NEGATIVE (NEGATIVE); PH 6.5 (5.0-9.0); UROBILINOGEN 0.2 E.U./dl (0.2-1.0)
== END 2019-05-18 00:37 | disposition home or self-care (01) ==
LOC: ED 18:54
PROVIDERS: Emergency Medicine
DX: K43.9 Ventral hernia without obstruction or gangrene (principal); I48.91 Unspecified atrial fibrillation; M10.9 Gout, unspecified; I12.9 Hypertensive chronic kidney disease with stage 1 through stage 4 chronic kidney disease, or unspecified chronic kidney disease; E11.22 Type 2 diabetes mellitus with diabetic chronic kidney disease; N18.3 Chronic kidney disease, stage 3 (moderate); Z79.01 Long term (current) use of anticoagulants; Z79.899 Other long term (current) drug therapy; Z79.4 Long term (current) use of insulin; Z79.82 Long term (current) use of aspirin

== ENCOUNTER → 2019-06-15 | Outpatient (CLI) | payer MEDICARE ==
[2019-06-15 11:08] LABS: HEMATOCRIT 45.5 % (42.0-52.0); HEMOGLOBIN 14.4 g/dl (14.0-18.0); MEAN CELL VOLUME 81.8 fl (80.0-94.0); MEAN CORPUSCULAR HGB 25.9 pg (27.0-31.0); MEAN CORPUSCULAR HGB CONC 31.6 g/dl (33.0-37.0); MEAN PLATELET VOLUME 10.8 fl (9.6-12.3); RED BLOOD COUNT 5.56 10*6/uL (4.50-5.90); RED CELL DISTRI WIDTH 14.6 % (0-14.5); RETICULOCYTE % 1.46 % (0.50-2.50); WHITE BLOOD COUNT 6.7 10*3/uL (4.8-10.8)
[2019-06-15 11:37] LABS: ALBUMIN 4.5 gm/dl (3.1-4.5); CREATININE 2.74 mg/dL (0.70-1.30); PHOSPHOROUS 4.2 mg/dL (2.5-4.9); POTASSIUM 4.3 mmol/L (3.5-5.1)
== END | disposition home or self-care (01) ==
LOC: LAB 10:15
PROVIDERS: Family Medicine
DX: Z12.5 Encounter for screening for malignant neoplasm of prostate (principal); E78.00 Pure hypercholesterolemia, unspecified; N18.3 Chronic kidney disease, stage 3 (moderate); D64.9 Anemia, unspecified; G47.00 Insomnia, unspecified

== ENCOUNTER → 2020-01-26 | Outpatient (CLI) | payer MEDICARE | END | disposition home or self-care (01) | LOC: COVID19 01-12 00:51 | PROVIDERS: ATTEND Podiatrist | DX: Z01.812 Encounter for preprocedural laboratory examination (principal); Z20.828 Contact with and (suspected) exposure to other viral communicable diseases ==

== ENCOUNTER → 2020-01-31 | Day surgery (SDC) | payer MEDICARE ==
[~2020-01-31] VITALS: Ht 185.4 cm; Wt 99.8 kg
[2020-01-31 07:15] VITALS: BP 133/76
[2020-01-31 07:32] LABS: BASO # 0.1 10*3/uL (0.0-0.1); BASO % 0.9 % (0.0-1.0); EOS # 0.3 10*3/uL (0.0-0.4); EOS % 4.8 % (1.0-4.0); HEMATOCRIT 38.3 % (42.0-52.0); LYMPH # 0.9 10*3/uL (1.3-4.4); LYMPH % 12.1 % (27.0-41.0); MEAN CELL VOLUME 84.2 fl (80.0-94.0); MEAN CORPUSCULAR HGB 26.4 pg (27.0-31.0); MEAN CORPUSCULAR HGB CONC 31.3 g/dl (33.0-37.0); MONO # 0.7 10*3/uL (0.1-1.0); NEUT # 4.9 10*3/uL (2.3-7.9); NEUT % 70.1 % (47.0-73.0); PLATELET COUNT AUTOMATED 158 10*3/uL (130-400); RED BLOOD COUNT 4.55 10*6/uL (4.50-5.90); RED CELL DISTRI WIDTH 13.9 % (0-14.5)
[2020-01-31 07:44] LABS: CREATININE 2.75 mg/dL (0.70-1.30); POTASSIUM 4.4 mmol/L (3.5-5.1)
[2020-01-31 11:54] VITALS: BP 112/67
[2020-01-31 12:10] VITALS: BP 105/61
[2020-01-31 12:31] VITALS: BP 110/60
[2020-02-01 12:09] LABS: ACID FAST SPEC PROCESSING Tissue Grinding (.)
== END | disposition home or self-care (01) ==
LOC: CANSCHSDC → SDC 01-15 09:30
PROVIDERS: ATTEND Podiatrist
DX: M25.775 Osteophyte, left foot (principal); M86.172 Other acute osteomyelitis, left ankle and foot; I12.9 Hypertensive chronic kidney disease with stage 1 through stage 4 chronic kidney disease, or unspecified chronic kidney disease; N18.3 Chronic kidney disease, stage 3 (moderate); I48.91 Unspecified atrial fibrillation; E78.5 Hyperlipidemia, unspecified; M10.9 Gout, unspecified; D64.9 Anemia, unspecified; Z98.890 Other specified postprocedural states; Z79.899 Other long term (current) drug therapy; Z83.3 Family history of diabetes mellitus; Z82.49 Family history of ischemic heart disease and other diseases of the circulatory system

== ENCOUNTER → 2020-03-15 | Outpatient (CLI) | payer MEDICARE | END | disposition home or self-care (01) | LOC: COVID19 00:16 | PROVIDERS: ATTEND Podiatrist | DX: Z01.812 Encounter for preprocedural laboratory examination (principal); Z20.828 Contact with and (suspected) exposure to other viral communicable diseases ==

== ENCOUNTER → 2020-03-20 | Day surgery (SDC) | payer MEDICARE ==
[~2020-03-20] VITALS: Ht 185.4 cm; Wt 99.8 kg
[2020-03-20 09:35] VITALS: BP 128/82
[2020-03-20 11:54] VITALS: BP 118/68
[2020-03-20 12:10] VITALS: BP 128/84
--- NOTE | 2020-03-21 08:00 | NUR ---
[facility] FAXED REFERRAL TO [facility].
[2020-03-21 11:10] LABS: ACID FAST SPEC PROCESSING Tissue Grinding (.)
[2020-03-21 11:10] LABS: ACID FAST SPEC PROCESSING Tissue Grinding (.)
[2020-05-06 11:10] LABS: ACID FAST CULTURE Negative (.)
[2020-05-06 11:10] LABS: ACID FAST CULTURE Negative (.)
== END ==
LOC: SDC 03-18 10:15
PROVIDERS: ATTEND Podiatrist
DX: M86.8X7 Other osteomyelitis, ankle and foot (principal); M21.6X2 Other acquired deformities of left foot; I10 Essential (primary) hypertension; I48.91 Unspecified atrial fibrillation; M10.9 Gout, unspecified; I73.9 Peripheral vascular disease, unspecified; Z98.890 Other specified postprocedural states; Z88.8 Allergy status to other drugs, medicaments and biological substances; Z79.899 Other long term (current) drug therapy

== ENCOUNTER → 2020-07-24 | Outpatient (CLI) | payer MEDICARE ==
[2020-07-24 09:42] LABS: INTERNATIONAL NORM RATIO 2.6 (2.0-3.5)
[2020-07-24 09:43] LABS: HEMATOCRIT 41.7 % (42.0-52.0); MEAN CELL VOLUME 82.1 fl (80.0-94.0); MEAN CORPUSCULAR HGB 25.4 pg (27.0-31.0); MEAN CORPUSCULAR HGB CONC 30.9 g/dl (33.0-37.0); MEAN PLATELET VOLUME 10.3 fl (9.6-12.3); RED BLOOD COUNT 5.08 10*6/uL (4.50-5.90); RED CELL DISTRI WIDTH 14.9 % (0-14.5); WHITE BLOOD COUNT 7.7 10*3/uL (4.8-10.8)
[2020-07-24 10:04] LABS: ALBUMIN 4.2 gm/dl (3.1-4.5); CREATININE 3.22 mg/dL (0.70-1.30); POTASSIUM 4.2 mmol/L (3.5-5.1); TOTAL PROTEIN 8.4 gm/dL (6.4-8.2)
[2020-07-24 10:24] LABS: VITAMIN D, 25-HYDROXY 66.4 ng/mL (30-100)
== END | disposition home or self-care (01) ==
LOC: LAB 09:17
PROVIDERS: ATTEND Family Medicine
DX: Z12.5 Encounter for screening for malignant neoplasm of prostate (principal); E55.9 Vitamin D deficiency, unspecified; E78.00 Pure hypercholesterolemia, unspecified; R53.83 Other fatigue; D64.9 Anemia, unspecified; I10 Essential (primary) hypertension; N40.0 Benign prostatic hyperplasia without lower urinary tract symptoms; M10.9 Gout, unspecified; Z79.01 Long term (current) use of anticoagulants

== ENCOUNTER → 2020-09-20 | Outpatient (CLI) | payer MEDICARE ==
[2020-09-20 11:00] LABS: INTERNATIONAL NORM RATIO 3.4 (2.0-3.5)
[2020-09-20 11:03] LABS: CHOLESTEROL 190 mg/dL (<200); HDL CHOLESTEROL 39 mg/dl (40-60); LDL CHOLESTEROL 123 mg/dL (9-159); TRIGLYCERIDES 142 mg/dl (<150); VLDL CHOLESTEROL 28 mg/dL (6-40)
== END | disposition home or self-care (01) ==
LOC: LAB 10:26
PROVIDERS: ATTEND Family Medicine
DX: I10 Essential (primary) hypertension (principal); E78.00 Pure hypercholesterolemia, unspecified; Z79.01 Long term (current) use of anticoagulants

== ENCOUNTER → 2020-10-04 | Outpatient (CLI) | payer MEDICARE | END | disposition home or self-care (01) | LOC: LAB 16:29 → US 17:00 | PROVIDERS: ATTEND Family Medicine | DX: N18.30 Chronic kidney disease, stage 3 unspecified (principal); Z90.5 Acquired absence of kidney ==

== ENCOUNTER → 2020-12-12 | Outpatient (CLI) | payer MEDICARE ==
[2020-12-12 10:07] LABS: INTERNATIONAL NORM RATIO 2.3 (2.0-3.5)
== END | disposition home or self-care (01) ==
LOC: LAB 09:10
PROVIDERS: ATTEND Family Medicine
DX: Z79.01 Long term (current) use of anticoagulants (principal)

== ENCOUNTER → 2021-01-29 | Outpatient (CLI) | payer MEDICARE ==
[2021-01-29 09:28] LABS: ALBUMIN 3.9 gm/dl (3.1-4.5); CREATININE 2.93 mg/dL (0.70-1.30); POTASSIUM 4.5 mmol/L (3.5-5.1); TOTAL PROTEIN 8.3 gm/dL (6.4-8.2)
== END | disposition home or self-care (01) ==
LOC: LAB 08:50
PROVIDERS: ATTEND Internal Medicine Nephrology
DX: E55.9 Vitamin D deficiency, unspecified (principal); N18.4 Chronic kidney disease, stage 4 (severe); E87.70 Fluid overload, unspecified; N25.81 Secondary hyperparathyroidism of renal origin

== ENCOUNTER → 2021-02-07 | Outpatient (CLI) | payer MEDICARE ==
[2021-02-07 09:34] LABS: INTERNATIONAL NORM RATIO 1.8 (2.0-3.5)
== END | disposition home or self-care (01) ==
LOC: LAB 08:59
PROVIDERS: ATTEND Family Medicine
DX: Z79.01 Long term (current) use of anticoagulants (principal)

== ENCOUNTER → 2021-03-20 | Outpatient (CLI) | payer MEDICARE | END | disposition home or self-care (01) | LOC: LAB 10:17 | PROVIDERS: ATTEND Family Medicine | DX: Z79.01 Long term (current) use of anticoagulants (principal) ==

== ENCOUNTER → 2021-07-10 | Outpatient (CLI) | payer MEDICARE ==
[2021-07-10 09:18] LABS: BASO # 0.1 10*3/uL (0.0-0.1); BASO % 0.9 % (0.0-1.0); EOS # 0.4 10*3/uL (0.0-0.4); EOS % 5.8 % (1.0-4.0); HEMATOCRIT 35.2 % (42.0-52.0); LYMPH % 14.7 % (27.0-41.0); MEAN CELL VOLUME 78.9 fl (80.0-94.0); MEAN CORPUSCULAR HGB 25.1 pg (27.0-31.0); MEAN CORPUSCULAR HGB CONC 31.8 g/dl (33.0-37.0); MEAN PLATELET VOLUME 9.9 fl (9.6-12.3); MONO # 0.7 10*3/uL (0.1-1.0); MONO % 9.6 % (3.0-9.0); NEUT # 4.6 10*3/uL (2.3-7.9); NEUT % 67.5 % (47.0-73.0); PLATELET COUNT AUTOMATED 239 10*3/uL (130-400); RED BLOOD COUNT 4.46 10*6/uL (4.50-5.90); RED CELL DISTRI WIDTH 15.4 % (0-14.5); WHITE BLOOD COUNT 6.9 10*3/uL (4.8-10.8)
[2021-07-10 09:30] LABS: INTERNATIONAL NORM RATIO 1.4 (2.0-3.5)
[2021-07-10 09:33] LABS: ALBUMIN 3.8 gm/dl (3.1-4.5); CREATININE 2.85 mg/dL (0.70-1.30); POTASSIUM 3.9 mmol/L (3.5-5.1); TOTAL PROTEIN 8.2 gm/dL (6.4-8.2); URIC ACID 7.6 mg/dL (3.5-7.2)
[2021-07-10 09:40] LABS: URINE CREATININE RANDOM 17.7 mg/dL
[2021-07-10 10:00] LABS: VITAMIN D, 25-HYDROXY 99.7 ng/mL (30-100)
[2021-07-10 10:33] LABS: BILIRUBIN Negative (Negative); BLOOD Negative (Negative); CLARITY Clear (Clear); COLOR Yellow (Yellow); GLUCOSE Negative (Negative); KETONE Negative (Negative); LEUKO ESTERASE Negative (Negative); NITRITE Negative (Negative); PH 5.5 (4.5-8.0); SPECIFIC GRAVITY <= 1.005 (1.001-1.030); UROBILINOGEN 0.2 E.U./dl (0.0-1.0)
[2021-07-10 10:58] LABS: WBC 0-2 wbc/hpf (0-5)
[2021-07-11 09:07] LABS: CREATININE,URINE 20.8 mg/dL (Not Estab.)
== END | disposition home or self-care (01) ==
LOC: LAB 08:43
PROVIDERS: Family Medicine; ATTEND Internal Medicine Nephrology
DX: N18.4 Chronic kidney disease, stage 4 (severe) (principal); E55.9 Vitamin D deficiency, unspecified; N25.81 Secondary hyperparathyroidism of renal origin; E87.70 Fluid overload, unspecified; R56.9 Unspecified convulsions; Z79.899 Other long term (current) drug therapy

== ENCOUNTER → 2021-09-12 | Outpatient (CLI) | payer MEDICARE ==
[2021-09-12 11:23] LABS: BILIRUBIN Negative (Negative); BLOOD Negative (Negative); CLARITY Clear (Clear); COLOR Yellow (Yellow); GLUCOSE Negative (Negative); KETONE Negative (Negative); LEUKO ESTERASE Negative (Negative); NITRITE Negative (Negative); UROBILINOGEN 0.2 E.U./dl (0.0-1.0)
[2021-09-12 11:44] LABS: RBC 0-2 rbc/hpf (0-2); URINE CREATININE RANDOM 37.2 mg/dL; WBC 0-2 wbc/hpf (0-5)
[2021-09-12 12:22] LABS: CREATININE 2.64 mg/dL (0.70-1.30); POTASSIUM 4.5 mmol/L (3.5-5.1)
[2021-09-12 12:23] LABS: TOTAL PROTEIN 8.5 gm/dL (6.4-8.2)
[2021-09-13 09:07] LABS: CREATININE,URINE 36.8 mg/dL (Not Estab.)
== END | disposition home or self-care (01) ==
LOC: LAB 10:52
PROVIDERS: ATTEND Internal Medicine Nephrology
DX: N18.4 Chronic kidney disease, stage 4 (severe) (principal); N25.81 Secondary hyperparathyroidism of renal origin; E87.70 Fluid overload, unspecified; N17.9 Acute kidney failure, unspecified; E55.9 Vitamin D deficiency, unspecified

== ENCOUNTER → 2021-09-25 | Outpatient (CLI) | payer MEDICARE | END | disposition home or self-care (01) | LOC: US 09:21 | PROVIDERS: ATTEND Internal Medicine Nephrology | DX: N18.4 Chronic kidney disease, stage 4 (severe) (principal); E87.70 Fluid overload, unspecified; E55.9 Vitamin D deficiency, unspecified; N25.81 Secondary hyperparathyroidism of renal origin ==

== ENCOUNTER 2021-10-16 01:24 | Inpatient (IN) | payer MEDICARE ==
[2021-10-14 15:24] LABS: BASO # 0.1 10*3/uL (0.0-0.1); EOS # 0.2 10*3/uL (0.0-0.4); EOS % 2.4 % (1.0-4.0); HEMATOCRIT 43.1 % (42.0-52.0); LYMPH # 0.8 10*3/uL (1.3-4.4); LYMPH % 10.7 % (27.0-41.0); MEAN CELL VOLUME 78.5 fl (80.0-94.0); MEAN CORPUSCULAR HGB 25.3 pg (27.0-31.0); MEAN CORPUSCULAR HGB CONC 32.3 g/dl (33.0-37.0); MEAN PLATELET VOLUME 9.7 fl (9.6-12.3); MONO # 0.8 10*3/uL (0.1-1.0); NEUT # 5.4 10*3/uL (2.3-7.9); NEUT % 74.6 % (47.0-73.0); PLATELET COUNT AUTOMATED 195 10*3/uL (130-400); RED BLOOD COUNT 5.49 10*6/uL (4.50-5.90); RED CELL DISTRI WIDTH 14.5 % (0-14.5); WHITE BLOOD COUNT 7.2 10*3/uL (4.8-10.8)
[2021-10-14 15:40] LABS: CREATININE 3.16 mg/dL (0.70-1.30); POTASSIUM 3.8 mmol/L (3.5-5.1)
[2021-10-16] VITALS (10 sets, daily range): BP systolic 136–174; BP diastolic 71–93
[~2021-10-16] VITALS: Ht 185.4 cm; Wt 104.3 kg
[~2021-10-16 01:24] MED LIST changes: +NAPROXEN500 M1 PO
[2021-10-16 12:27] LABS: INTERNATIONAL NORM RATIO 1.9 (2.0-3.5)
[2021-10-17] VITALS: BP 178/90
[2021-10-17 06:05] LABS: CREATININE 2.58 mg/dL (0.70-1.30); TOTAL PROTEIN 7.2 gm/dL (6.4-8.2)
[2021-10-17 06:13] LABS: BASO % 0.4 % (0.0-1.0); EOS % 0.3 % (1.0-4.0); HEMATOCRIT 41.4 % (42.0-52.0); LYMPH # 0.8 10*3/uL (1.3-4.4); LYMPH % 7.1 % (27.0-41.0); MEAN CELL VOLUME 78.9 fl (80.0-94.0); MEAN CORPUSCULAR HGB 25.3 pg (27.0-31.0); MEAN CORPUSCULAR HGB CONC 32.1 g/dl (33.0-37.0); MEAN PLATELET VOLUME 10.7 fl (9.6-12.3); MONO % 8.9 % (3.0-9.0); NEUT # 9.3 10*3/uL (2.3-7.9); NEUT % 82.9 % (47.0-73.0); PLATELET COUNT AUTOMATED 218 10*3/uL (130-400); RED BLOOD COUNT 5.25 10*6/uL (4.50-5.90); RED CELL DISTRI WIDTH 14.4 % (0-14.5); WHITE BLOOD COUNT 11.2 10*3/uL (4.8-10.8)
[2021-10-17 06:33] LABS: INTERNATIONAL NORM RATIO 2.3 (2.0-3.5)
[2021-10-17 08:00] VITALS: BP 149/81
[2021-10-17] MEDS ORDERED: HYDROCODONE-AC1 EAC1 PO (08:29)
[2021-10-17 12:00] VITALS: BP 150/81
== END 2021-10-17 15:50 | disposition home or self-care (01) | DRG 354 ==
LOC: SDC 01:24 → 5E 09:45 → SDC 14:00 → 5E 10-17 15:50
PROVIDERS: Registered Nurse; Surgery; ADMIT Student in an Organized Health Care Education/Training Program; ATTEND Student in an Organized Health Care Education/Training Program
PROC: 0WUF4JZ Supplement Abdominal Wall with Synthetic Substitute, Percutaneous Endoscopic Approach (ICD-10-PCS; principal; 2021-10-16)
PROC: 3E0T3BZ Introduction of Anesthetic Agent into Peripheral Nerves and Plexi, Percutaneous Approach (ICD-10-PCS; 2021-10-16)
PROC: 3E0T33Z Introduction of Anti-inflammatory into Peripheral Nerves and Plexi, Percutaneous Approach (ICD-10-PCS; 2021-10-16)
DX: K43.9 Ventral hernia without obstruction or gangrene (principal); I48.11 Longstanding persistent atrial fibrillation; N18.4 Chronic kidney disease, stage 4 (severe); M10.9 Gout, unspecified; E11.22 Type 2 diabetes mellitus with diabetic chronic kidney disease; I48.91 Unspecified atrial fibrillation; I87.8 Other specified disorders of veins; N40.0 Benign prostatic hyperplasia without lower urinary tract symptoms; Z79.82 Long term (current) use of aspirin; Z79.899 Other long term (current) drug therapy; Z79.01 Long term (current) use of anticoagulants

== ENCOUNTER → 2021-10-31 | Outpatient (CLI) | payer MEDICARE ==
[~2021-10-31] MED LIST changes: +HYDROCODONE-AC1 EAC1 PO
[2021-10-31 09:09] LABS: HEMATOCRIT 38.3 % (42.0-52.0); MEAN CELL VOLUME 79.8 fl (80.0-94.0); MEAN CORPUSCULAR HGB 25.6 pg (27.0-31.0); MEAN CORPUSCULAR HGB CONC 32.1 g/dl (33.0-37.0); MEAN PLATELET VOLUME 9.5 fl (9.6-12.3); RED BLOOD COUNT 4.8 10*6/uL (4.50-5.90); RED CELL DISTRI WIDTH 14.9 % (0-14.5); WHITE BLOOD COUNT 6.8 10*3/uL (4.8-10.8)
[2021-10-31 09:56] LABS: CREATININE 2.72 mg/dL (0.70-1.30); POTASSIUM 4.8 mmol/L (3.5-5.1); TOTAL PROTEIN 7.8 gm/dL (6.4-8.2)
== END | disposition home or self-care (01) ==
LOC: LAB 08:50
PROVIDERS: ATTEND Family Medicine
DX: E78.00 Pure hypercholesterolemia, unspecified (principal); E55.9 Vitamin D deficiency, unspecified; Z79.899 Other long term (current) drug therapy

== ENCOUNTER 2021-11-03 11:18 | Observation (INO) | payer MEDICARE ==
[~2021-11-03] VITALS: Ht 185.4 cm; Wt 99.5 kg
[2021-11-03 11:21] VITALS: BP 153/78
[2021-11-03 11:41] LABS: BASO # 0.1 10*3/uL (0.0-0.1); BASO % 1.1 % (0.0-1.0); EOS # 0.1 10*3/uL (0.0-0.4); EOS % 1.1 % (1.0-4.0); LYMPH # 0.4 10*3/uL (1.3-4.4); LYMPH % 6.8 % (27.0-41.0); MEAN CELL VOLUME 77.7 fl (80.0-94.0); MEAN CORPUSCULAR HGB 25.4 pg (27.0-31.0); MEAN CORPUSCULAR HGB CONC 32.7 g/dl (33.0-37.0); MEAN PLATELET VOLUME 9.9 fl (9.6-12.3); MONO # 0.5 10*3/uL (0.1-1.0); MONO % 7.1 % (3.0-9.0); NEUT # 5.3 10*3/uL (2.3-7.9); NEUT % 83.3 % (47.0-73.0); PLATELET COUNT AUTOMATED 208 10*3/uL (130-400); RED BLOOD COUNT 4.76 10*6/uL (4.50-5.90); RED CELL DISTRI WIDTH 14.9 % (0-14.5); WHITE BLOOD COUNT 6.3 10*3/uL (4.8-10.8)
[2021-11-03 11:54] LABS: ACT PARTIAL THROMBO TIME 32.2 SECONDS (20.0-32.1); INTERNATIONAL NORM RATIO 1.5 (2.0-3.5)
[2021-11-03 11:56] LABS: CREATININE 2.87 mg/dL (0.70-1.30); TOTAL PROTEIN 7.8 gm/dL (6.4-8.2)
[2021-11-03 15:41] VITALS: BP 152/82
[2021-11-03 18:21] VITALS: BP 161/68
[2021-11-03 20:00] VITALS: BP 162/95
[2021-11-04] VITALS: BP 134/82
[2021-11-04 06:13] LABS: CREATININE 2.64 mg/dL (0.70-1.30); POTASSIUM 4.3 mmol/L (3.5-5.1); TOTAL PROTEIN 7.6 gm/dL (6.4-8.2)
[2021-11-04 06:16] LABS: BASO # 0.1 10*3/uL (0.0-0.1); BASO % 1.5 % (0.0-1.0); EOS # 0.3 10*3/uL (0.0-0.4); EOS % 5.9 % (1.0-4.0); HEMATOCRIT 39.2 % (42.0-52.0); LYMPH # 1.1 10*3/uL (1.3-4.4); MEAN CELL VOLUME 80.3 fl (80.0-94.0); MEAN CORPUSCULAR HGB 25.8 pg (27.0-31.0); MEAN CORPUSCULAR HGB CONC 32.1 g/dl (33.0-37.0); MEAN PLATELET VOLUME 10.4 fl (9.6-12.3); MONO # 0.6 10*3/uL (0.1-1.0); MONO % 10.2 % (3.0-9.0); NEUT # 3.4 10*3/uL (2.3-7.9); PLATELET COUNT AUTOMATED 219 10*3/uL (130-400); RED BLOOD COUNT 4.88 10*6/uL (4.50-5.90); RED CELL DISTRI WIDTH 14.8 % (0-14.5); WHITE BLOOD COUNT 5.4 10*3/uL (4.8-10.8)
[2021-11-04 06:19] LABS: ACT PARTIAL THROMBO TIME 32.8 SECONDS (20.0-32.1); INTERNATIONAL NORM RATIO 1.4 (2.0-3.5)
[2021-11-04 08:00] VITALS: BP 148/90
[2021-11-04 12:00] VITALS: BP 147/63
[2021-11-04 16:00] VITALS: BP 155/73
== END 2021-11-04 18:35 | disposition home health service (06) ==
LOC: ED 11:18 → EDHOLD 13:53 → 4E 17:26
PROVIDERS: Emergency Medicine; Student in an Organized Health Care Education/Training Program; ADMIT Student in an Organized Health Care Education/Training Program; ATTEND Student in an Organized Health Care Education/Training Program
DX: T14.8XXA Other injury of unspecified body region, initial encounter (principal); D68.9 Coagulation defect, unspecified; L76.22 Postprocedural hemorrhage of skin and subcutaneous tissue following other procedure; N18.4 Chronic kidney disease, stage 4 (severe); K43.9 Ventral hernia without obstruction or gangrene; N40.0 Benign prostatic hyperplasia without lower urinary tract symptoms; E13.65 Other specified diabetes mellitus with hyperglycemia; I48.91 Unspecified atrial fibrillation; D50.9 Iron deficiency anemia, unspecified; E87.8 Other disorders of electrolyte and fluid balance, not elsewhere classified; E83.41 Hypermagnesemia; R74.8 Abnormal levels of other serum enzymes; Z98.890 Other specified postprocedural states; R79.82 Elevated C-reactive protein (CRP); Z79.899 Other long term (current) drug therapy; X58.XXXA Exposure to other specified factors, initial encounter; Y93.89 Activity, other specified; Y92.89 Other specified places as the place of occurrence of the external cause; Y99.8 Other external cause status

== ENCOUNTER 2021-11-06 16:45 | Emergency (ER) | payer MEDICARE ==
[~2021-11-06] VITALS: Wt 105.7 kg
[2021-11-06 17:50] LABS: BASO # 0.1 10*3/uL (0.0-0.1); EOS # 0.3 10*3/uL (0.0-0.4); EOS % 4.5 % (1.0-4.0); HEMATOCRIT 36.7 % (42.0-52.0); LYMPH # 0.7 10*3/uL (1.3-4.4); LYMPH % 10.8 % (27.0-41.0); MEAN CELL VOLUME 78.9 fl (80.0-94.0); MEAN CORPUSCULAR HGB 25.2 pg (27.0-31.0); MEAN CORPUSCULAR HGB CONC 31.9 g/dl (33.0-37.0); MEAN PLATELET VOLUME 9.8 fl (9.6-12.3); MONO # 0.7 10*3/uL (0.1-1.0); MONO % 10.2 % (3.0-9.0); NEUT # 4.9 10*3/uL (2.3-7.9); NEUT % 73.1 % (47.0-73.0); PLATELET COUNT AUTOMATED 219 10*3/uL (130-400); RED BLOOD COUNT 4.65 10*6/uL (4.50-5.90); RED CELL DISTRI WIDTH 14.9 % (0-14.5); WHITE BLOOD COUNT 6.7 10*3/uL (4.8-10.8)
[2021-11-06 18:00] LABS: ACT PARTIAL THROMBO TIME 33.9 SECONDS (20.0-32.1); INTERNATIONAL NORM RATIO 1.6 (2.0-3.5)
[2021-11-06 18:05] LABS: CREATININE 3.05 mg/dL (0.70-1.30); POTASSIUM 4.1 mmol/L (3.5-5.1); TOTAL PROTEIN 7.7 gm/dL (6.4-8.2)
== END 2021-11-06 21:34 | disposition home or self-care (01) ==
LOC: ED 16:45
PROVIDERS: Emergency Medicine
DX: S30.1XXA Contusion of abdominal wall, initial encounter (principal); X58.XXXA Exposure to other specified factors, initial encounter; Y93.89 Activity, other specified; Y92.89 Other specified places as the place of occurrence of the external cause; Y99.8 Other external cause status

== ENCOUNTER → 2022-03-13 | Outpatient (CLI) | payer MEDICARE ==
[2022-03-13 10:55] LABS: BASO # 0.1 10*3/uL (0.0-0.1); BASO % 1.5 % (0.0-1.0); EOS # 0.2 10*3/uL (0.0-0.4); EOS % 4.8 % (1.0-4.0); HEMATOCRIT 42.3 % (42.0-52.0); LYMPH # 0.8 10*3/uL (1.3-4.4); LYMPH % 17.2 % (27.0-41.0); MEAN CELL VOLUME 79.2 fl (80.0-94.0); MEAN CORPUSCULAR HGB 25.5 pg (27.0-31.0); MEAN CORPUSCULAR HGB CONC 32.2 g/dl (33.0-37.0); MEAN PLATELET VOLUME 10.3 fl (9.6-12.3); MONO # 0.4 10*3/uL (0.1-1.0); MONO % 9.2 % (3.0-9.0); NEUT # 3.1 10*3/uL (2.3-7.9); NEUT % 66.9 % (47.0-73.0); PLATELET COUNT AUTOMATED 163 10*3/uL (130-400); RED BLOOD COUNT 5.34 10*6/uL (4.50-5.90); RED CELL DISTRI WIDTH 15.1 % (0-14.5); WHITE BLOOD COUNT 4.6 10*3/uL (4.8-10.8)
[2022-03-13 11:07] LABS: INTERNATIONAL NORM RATIO 1.2 (2.0-3.5)
[2022-03-13 11:17] LABS: CREATININE 2.6 mg/dL (0.70-1.30); POTASSIUM 4.4 mmol/L (3.5-5.1); TOTAL PROTEIN 7.8 gm/dL (6.4-8.2); URIC ACID 6.5 mg/dL (3.5-7.2)
[2022-03-13 11:26] LABS: VITAMIN D, 25-HYDROXY 54.3 ng/mL (30-100)
[2022-03-13 11:27] LABS: FERRITIN 154.1 ng/mL (22.0-322.0)
== END | disposition home or self-care (01) ==
LOC: LAB 09:52
PROVIDERS: Family Medicine; ATTEND Internal Medicine Nephrology
DX: Z12.5 Encounter for screening for malignant neoplasm of prostate (principal); N18.4 Chronic kidney disease, stage 4 (severe); E78.00 Pure hypercholesterolemia, unspecified; R53.83 Other fatigue; D64.9 Anemia, unspecified; E55.9 Vitamin D deficiency, unspecified; Z79.01 Long term (current) use of anticoagulants

== ENCOUNTER → 2022-06-25 | Outpatient (CLI) | payer MEDICARE | END | disposition home or self-care (01) | LOC: LAB 09:20 | PROVIDERS: ATTEND Family Medicine | DX: I48.91 Unspecified atrial fibrillation (principal) ==

== ENCOUNTER → 2022-06-29 | Outpatient (CLI) | payer MEDICARE ==
[2022-06-29 09:55] LABS: HEMATOCRIT 44.2 % (42.0-52.0); MEAN CELL VOLUME 83.4 fl (80.0-94.0); MEAN CORPUSCULAR HGB CONC 31.2 g/dl (33.0-37.0); MEAN PLATELET VOLUME 10.3 fl (9.6-12.3); RED BLOOD COUNT 5.3 10*6/uL (4.50-5.90); RED CELL DISTRI WIDTH 14.2 % (0-14.5); WHITE BLOOD COUNT 6.5 10*3/uL (4.8-10.8)
[2022-06-29 10:05] LABS: INTERNATIONAL NORM RATIO 1.9 (2.0-3.5)
[2022-06-29 10:11] LABS: POTASSIUM 4.2 mmol/L (3.4-5.1); TOTAL PROTEIN 7.5 gm/dL (6.0-8.0)
== END | disposition home or self-care (01) ==
LOC: LAB 09:15
PROVIDERS: ATTEND Family Medicine
DX: I48.91 Unspecified atrial fibrillation (principal); E78.00 Pure hypercholesterolemia, unspecified; E55.9 Vitamin D deficiency, unspecified; Z79.899 Other long term (current) drug therapy

== ENCOUNTER 2022-08-14 18:55 | Emergency (ER) | payer MEDICARE ==
[~2022-08-14] VITALS: Ht 185.4 cm; Wt 93.4 kg
[2022-08-14 20:03] LABS: BASO # 0.1 10*3/uL (0.0-0.1); BASO % 0.8 % (0.0-1.0); EOS # 0.1 10*3/uL (0.0-0.4); EOS % 1.4 % (1.0-4.0); HEMATOCRIT 40.5 % (42.0-52.0); LYMPH # 0.6 10*3/uL (1.3-4.4); LYMPH % 8.8 % (27.0-41.0); MEAN CELL VOLUME 82.5 fl (80.0-94.0); MEAN CORPUSCULAR HGB 26.3 pg (27.0-31.0); MEAN CORPUSCULAR HGB CONC 31.9 g/dl (33.0-37.0); MEAN PLATELET VOLUME 9.7 fl (9.6-12.3); MONO # 0.6 10*3/uL (0.1-1.0); MONO % 9.4 % (3.0-9.0); NEUT # 5.2 10*3/uL (2.3-7.9); PLATELET COUNT AUTOMATED 172 10*3/uL (130-400); RED BLOOD COUNT 4.91 10*6/uL (4.50-5.90); RED CELL DISTRI WIDTH 14.5 % (0-14.5); WHITE BLOOD COUNT 6.5 10*3/uL (4.8-10.8)
== END 2022-08-14 20:27 | disposition home or self-care (01) ==
LOC: ED 18:55
PROVIDERS: Internal Medicine
DX: R04.0 Epistaxis (principal); Z79.899 Other long term (current) drug therapy

== ENCOUNTER → 2022-08-17 | Outpatient (CLI) | payer MEDICARE | END | disposition home or self-care (01) | LOC: LAB 09:06 | PROVIDERS: ATTEND Family Medicine | DX: I48.91 Unspecified atrial fibrillation (principal) ==

== ENCOUNTER → 2022-09-11 | Outpatient (CLI) | payer MEDICARE ==
[2022-09-11 09:37] LABS: BILIRUBIN Negative (Negative); BLOOD Trace-Lysed (Negative); CLARITY Clear (Clear); COLOR Yellow (Yellow); GLUCOSE Negative (Negative); KETONE Negative (Negative); LEUKO ESTERASE Negative (Negative); NITRITE Negative (Negative); UROBILINOGEN 0.2 E.U./dl (0.0-1.0)
[2022-09-11 09:37] LABS: BASO # 0.1 10*3/uL (0.0-0.1); BASO % 1.2 % (0.0-1.0); EOS # 0.2 10*3/uL (0.0-0.4); EOS % 4.1 % (1.0-4.0); HEMATOCRIT 43.5 % (42.0-52.0); LYMPH # 0.8 10*3/uL (1.3-4.4); LYMPH % 16.8 % (27.0-41.0); MEAN CELL VOLUME 82.1 fl (80.0-94.0); MEAN CORPUSCULAR HGB 25.8 pg (27.0-31.0); MEAN CORPUSCULAR HGB CONC 31.5 g/dl (33.0-37.0); MEAN PLATELET VOLUME 9.6 fl (9.6-12.3); MONO # 0.6 10*3/uL (0.1-1.0); MONO % 11.7 % (3.0-9.0); NEUT # 3.2 10*3/uL (2.3-7.9); NEUT % 65.8 % (47.0-73.0); PLATELET COUNT AUTOMATED 190 10*3/uL (130-400); WHITE BLOOD COUNT 4.9 10*3/uL (4.8-10.8)
[2022-09-11 09:46] LABS: URINE CREATININE RANDOM 38.46 mg/dL
[2022-09-11 09:47] LABS: INTERNATIONAL NORM RATIO 1.5 (2.0-3.5)
[2022-09-11 09:55] LABS: POTASSIUM 3.9 mmol/L (3.4-5.1); TOTAL PROTEIN 7.6 gm/dL (6.0-8.0)
[2022-09-11 09:57] LABS: VITAMIN D, 25-HYDROXY 47.7 ng/mL (30-100)
[2022-09-11 09:57] LABS: BACTERIA TRACE; RBC 0-2 rbc/hpf (0-2); WBC 0-2 wbc/hpf (0-5)
== END | disposition home or self-care (01) ==
LOC: LAB 09:09
PROVIDERS: Family Medicine; ATTEND Internal Medicine Nephrology
DX: E55.9 Vitamin D deficiency, unspecified (principal); N18.4 Chronic kidney disease, stage 4 (severe); Z79.899 Other long term (current) drug therapy

== ENCOUNTER → 2022-11-19 | Outpatient (CLI) | payer MEDICARE ==
[2022-11-19 09:55] LABS: BILIRUBIN Negative (Negative); BLOOD Trace-Lysed (Negative); CLARITY Clear (Clear); COLOR Yellow (Yellow); GLUCOSE Negative (Negative); KETONE Negative (Negative); LEUKO ESTERASE Negative (Negative); NITRITE Negative (Negative); UROBILINOGEN 0.2 E.U./dl (0.0-1.0)
[2022-11-19 10:20] LABS: POTASSIUM 4.5 mmol/L (3.4-5.1); URIC ACID 9.1 mg/dL (3.7-9.2)
[2022-11-19 10:48] LABS: EPITHELIAL CELLS 0-2
[2022-11-19 10:49] LABS: VITAMIN D, 25-HYDROXY 66.1 ng/mL (30-100)
== END | disposition home or self-care (01) ==
LOC: LAB 09:15 → NM 10:00
PROVIDERS: ATTEND Internal Medicine Nephrology
DX: N25.81 Secondary hyperparathyroidism of renal origin (principal); N18.4 Chronic kidney disease, stage 4 (severe); Z79.899 Other long term (current) drug therapy

== ENCOUNTER → 2022-11-21 | Outpatient (CLI) | payer MEDICARE ==
[2022-11-24 13:06] LABS: CREATININE,URINE 21.9 mg/dL (Not Estab.)
== END | disposition home or self-care (01) ==
LOC: LAB 10:23
PROVIDERS: ATTEND Internal Medicine Nephrology
DX: N18.4 Chronic kidney disease, stage 4 (severe) (principal); N25.81 Secondary hyperparathyroidism of renal origin

== ENCOUNTER → 2022-12-16 | Outpatient (CLI) | payer MEDICARE | END | disposition home or self-care (01) | LOC: US 01:46 → CARD 10:30 | PROVIDERS: ATTEND Internal Medicine Cardiovascular Disease | DX: I34.0 Nonrheumatic mitral (valve) insufficiency (principal); M79.89 Other specified soft tissue disorders; I42.9 Cardiomyopathy, unspecified; I73.9 Peripheral vascular disease, unspecified ==

== ENCOUNTER → 2023-01-06 | Outpatient (CLI) | payer MEDICARE ==
[2023-01-06 09:13] LABS: INTERNATIONAL NORM RATIO 1.5 (2.0-3.5)
== END | disposition home or self-care (01) ==
LOC: LAB 08:28
PROVIDERS: ATTEND Family Medicine
DX: I48.91 Unspecified atrial fibrillation (principal)

== ENCOUNTER → 2023-01-14 | Outpatient (CLI) | payer MEDICARE ==
[2023-01-14 09:52] LABS: INTERNATIONAL NORM RATIO 1.4 (2.0-3.5)
== END | disposition home or self-care (01) ==
LOC: LAB 09:17
PROVIDERS: ATTEND Family Medicine
DX: I48.91 Unspecified atrial fibrillation (principal)

== ENCOUNTER → 2023-01-22 | Outpatient (CLI) | payer MEDICARE | END | disposition home or self-care (01) | LOC: LAB 09:52 | PROVIDERS: ATTEND Internal Medicine Nephrology | DX: N18.4 Chronic kidney disease, stage 4 (severe) (principal) ==

== ENCOUNTER → 2023-02-01 | Outpatient (CLI) | payer MEDICARE ==
[2023-02-01 12:22] LABS: INTERNATIONAL NORM RATIO 1.9 (2.0-3.5)
== END | disposition home or self-care (01) ==
LOC: LAB 10:38
PROVIDERS: ATTEND Family Medicine
DX: I48.11 Longstanding persistent atrial fibrillation (principal)

== ENCOUNTER → 2023-03-29 | Outpatient (CLI) | payer MEDICARE | LOC: US 03-26 12:30 | PROVIDERS: ATTEND Internal Medicine Cardiovascular Disease | DX: I83.893 Varicose veins of bilateral lower extremities with other complications (principal); M79.89 Other specified soft tissue disorders; R59.0 Localized enlarged lymph nodes ==

== ENCOUNTER → 2023-04-08 | Outpatient (CLI) | payer MEDICARE | END | disposition home or self-care (01) | LOC: LAB 10:29 | PROVIDERS: ATTEND Family Medicine | DX: I48.91 Unspecified atrial fibrillation (principal); G47.33 Obstructive sleep apnea (adult) (pediatric) ==

== ENCOUNTER → 2023-04-19 | Outpatient (CLI) | payer MEDICARE | END | disposition home or self-care (01) | LOC: LAB 09:15 | PROVIDERS: ATTEND Family Medicine | DX: Z12.5 Encounter for screening for malignant neoplasm of prostate (principal); E74.9 Disorder of carbohydrate metabolism, unspecified; Z79.899 Other long term (current) drug therapy ==

== ENCOUNTER → 2023-06-03 | Outpatient (CLI) | payer MEDICARE ==
[2023-06-03 10:25] LABS: HEMATOCRIT 42.7 % (42.0-52.0); MEAN CELL VOLUME 82.6 fl (80.0-94.0); MEAN CORPUSCULAR HGB 25.3 pg (27.0-31.0); MEAN CORPUSCULAR HGB CONC 30.7 g/dl (33.0-37.0); MEAN PLATELET VOLUME 10.9 fl (9.6-12.3); RED BLOOD COUNT 5.17 10*6/uL (4.50-5.90); RED CELL DISTRI WIDTH 15.2 % (0-14.5); WHITE BLOOD COUNT 4.6 10*3/uL (4.8-10.8)
[2023-06-03 10:50] LABS: POTASSIUM 4.3 mmol/L (3.4-5.1); TOTAL PROTEIN 7.4 gm/dL (6.0-8.0)
== END | disposition home or self-care (01) ==
LOC: LAB 09:17
PROVIDERS: ATTEND Family Medicine
DX: I10 Essential (primary) hypertension (principal); E78.00 Pure hypercholesterolemia, unspecified; M79.606 Pain in leg, unspecified; M10.9 Gout, unspecified; E11.621 Type 2 diabetes mellitus with foot ulcer

== ENCOUNTER → 2023-07-19 | Outpatient (CLI) | payer MEDICARE ==
[2023-07-19 10:41] LABS: POTASSIUM 4.5 mmol/L (3.4-5.1)
== END | disposition home or self-care (01) ==
LOC: LAB 09:50
PROVIDERS: ATTEND Family Medicine
DX: N18.30 Chronic kidney disease, stage 3 unspecified (principal)

== ENCOUNTER → 2023-09-13 | Outpatient (CLI) | payer MEDICARE ==
[2023-09-13 09:51] LABS: POTASSIUM 4.4 mmol/L (3.4-5.1)
== END | disposition home or self-care (01) ==
LOC: LAB 08:55
PROVIDERS: ATTEND Family Medicine
DX: Z79.01 Long term (current) use of anticoagulants (principal)

== ENCOUNTER → 2023-10-25 | Outpatient (CLI) | payer MEDICARE | END | disposition home or self-care (01) | LOC: LAB 09:31 | PROVIDERS: ATTEND Family Medicine | DX: N18.30 Chronic kidney disease, stage 3 unspecified (principal); Z79.01 Long term (current) use of anticoagulants ==

== ENCOUNTER → 2023-11-15 | Outpatient (CLI) | payer MEDICARE | END | disposition home or self-care (01) | LOC: LAB 08:39 | PROVIDERS: ATTEND Family Medicine | DX: Z79.01 Long term (current) use of anticoagulants (principal) ==

== ENCOUNTER → 2024-02-03 | Outpatient (CLI) | payer MEDICARE ==
[2024-02-03 10:34] LABS: HEMATOCRIT 43.4 % (42.0-52.0); MEAN CELL VOLUME 79.8 fl (80.0-94.0); MEAN CORPUSCULAR HGB CONC 31.3 g/dl (33.0-37.0); RED BLOOD COUNT 5.44 10*6/uL (4.50-5.90); RED CELL DISTRI WIDTH 14.8 % (0-14.5); WHITE BLOOD COUNT 5.3 10*3/uL (4.8-10.8)
[2024-02-03 11:01] LABS: POTASSIUM 4.5 mmol/L (3.4-5.1); TOTAL PROTEIN 7.4 gm/dL (6.0-8.0)
== END | disposition home or self-care (01) ==
LOC: LAB 10:07
PROVIDERS: ATTEND Family Medicine
DX: E78.00 Pure hypercholesterolemia, unspecified (principal); N18.30 Chronic kidney disease, stage 3 unspecified; D29.1 Benign neoplasm of prostate

== ENCOUNTER → 2024-07-04 | Outpatient (CLI) | payer MEDICARE ==
[~2024-07-04] MED LIST changes: +XARE15TA PO
[2024-07-04 15:35] LABS: MEAN CELL VOLUME 75.7 fl (80.0-94.0); MEAN CORPUSCULAR HGB 23.4 pg (27.0-31.0); MEAN PLATELET VOLUME 9.8 fl (9.6-12.3); RED BLOOD COUNT 5.55 10*6/uL (4.50-5.90); RED CELL DISTRI WIDTH 15.4 % (0-14.5); WHITE BLOOD COUNT 8.2 10*3/uL (4.8-10.8)
[2024-07-04 16:00] LABS: POTASSIUM 4.2 mmol/L (3.4-5.1); TOTAL PROTEIN 8.4 gm/dL (6.0-8.0)
[2024-07-04 16:04] LABS: VITAMIN D, 25-HYDROXY 39.3 ng/mL (30-100)
== END | disposition home or self-care (01) ==
LOC: MRI 13:00 → LAB 13:44
PROVIDERS: Family Medicine; ATTEND Nurse Practitioner
DX: S92.254A Nondisplaced fracture of navicular [scaphoid] of right foot, initial encounter for closed fracture (principal); S86.111A Strain of other muscle(s) and tendon(s) of posterior muscle group at lower leg level, right leg, initial encounter; I10 Essential (primary) hypertension; E55.9 Vitamin D deficiency, unspecified; D64.9 Anemia, unspecified; R60.0 Localized edema; R06.2 Wheezing; X58.XXXA Exposure to other specified factors, initial encounter; Y93.89 Activity, other specified; Y92.89 Other specified places as the place of occurrence of the external cause; Y99.8 Other external cause status

== ENCOUNTER → 2024-12-13 | Outpatient (CLI) | payer MEDICARE ==
[2024-12-13 10:49] LABS: BASO # 0.1 10*3/uL (0.0-0.1); BASO % 1.8 % (0.0-1.0); EOS # 0.2 10*3/uL (0.0-0.4); EOS % 4.4 % (1.0-4.0); MEAN CELL VOLUME 77.9 fl (80.0-94.0); MEAN CORPUSCULAR HGB 24.6 pg (27.0-31.0); MEAN PLATELET VOLUME 9.9 fl (9.6-12.3); MONO # 0.6 10*3/uL (0.1-1.0); MONO % 11.0 % (3.0-9.0); NEUT # 3.2 10*3/uL (2.3-7.9); NEUT % 64.5 % (47.0-73.0); NUCLEATED RED BLOOD CELL 0.0 % (0.0-0.0); NUCLEATED RED BLOOD CELL 0.0 10*3/uL (0.0-0.0); PLATELET COUNT AUTOMATED 203 10*3/uL (130-400); RED CELL DISTRI WIDTH 15.5 % (0-14.5)
[2024-12-13 11:30] LABS: BUN 42.0 mg/dl (9-23); SGPT/ALT 8.0 U/L (5-49)
== END | disposition home or self-care (01) ==
LOC: LAB 10:06
PROVIDERS: ATTEND Internal Medicine Nephrology
DX: I48.91 Unspecified atrial fibrillation (principal)

== ENCOUNTER → 2024-12-28 | Outpatient (CLI) | payer MEDICARE | END | disposition home or self-care (01) | LOC: LAB 13:51 | PROVIDERS: ATTEND Family Medicine | DX: I48.91 Unspecified atrial fibrillation (principal) ==

== ENCOUNTER → 2025-02-16 | Outpatient (CLI) | payer MEDICARE | END | disposition home or self-care (01) | LOC: RAD 13:47 | PROVIDERS: ATTEND Family Medicine | DX: M81.0 Age-related osteoporosis without current pathological fracture (principal) ==

== ENCOUNTER 2025-05-21 12:34 | Emergency (ER) | payer MEDICARE ==
[~2025-05-21] VITALS: Ht 180.3 cm; Wt 104.3 kg
[2025-05-21] MEDS ORDERED: ULTRA-LIGHT RO1 EACH MC (14:23)
== END 2025-05-21 14:42 | disposition home or self-care (01) ==
LOC: ED 12:34
DX: S00.03XA Contusion of scalp, initial encounter (principal); I10 Essential (primary) hypertension; I48.91 Unspecified atrial fibrillation; M10.9 Gout, unspecified; Z98.890 Other specified postprocedural states; Z90.5 Acquired absence of kidney; W19.XXXA Unspecified fall, initial encounter; Y93.89 Activity, other specified; Y92.89 Other specified places as the place of occurrence of the external cause; Y99.8 Other external cause status